=== PATIENT | female | born 1985 | race Caucasian/White ===

== ENCOUNTER 2024-01-31 07:29 | Inpatient (IN) | payer OTHER, SELFPAY ==
[2024-01-31] VITALS (81 sets, daily range): BP systolic 65–112; BP diastolic 47–94; BMI 25.1
[2024-01-31 06:20] LABS: % Basophils 0.6 % (0-2); % Eosinophils 1.1 % (0-6); % Immature Granulocytes 1.1 % (0-0.5); % Monocytes 6.5 % (1.7-9.3); % Neutrophils 58.7 % (42.2-75.2); Absolute Basophils 0.1 10^3/uL (0-0.2); Absolute Eosinophils 0.1 10^3/uL (0-0.7); Absolute Immature Granulocytes 0.1 10^3/uL (0-0.05); Absolute Lymphocytes 2.6 10^3/uL (1.2-3.4); Absolute Monocytes 0.5 10^3/uL (0.1-0.6); Absolute Neutrophils 4.8 10^3/uL (1.4-6.5); Hematocrit 22.9 % (37.0-47.0); Mean Corp Hgb Conc. 27.5 g/dL (33.0-37.0); Mean Corpuscular Hgb 17.6 pg (27.0-31.0); Mean Corpuscular Volume 64.1 fL (81.0-99.0); Mean Platelet Volume 9.7 fL (7.4-10.4); Nucleated Red Blood Cells % 0.2 %; Platelet Count 326 10^3/uL (130-400); Red Blood Cell Count 3.57 10^6/uL (4.20-5.40); Red Cell Dist. Width 17.5 % (11.5-14.5); White Blood Cell Count 8.2 10^3/uL (4.8-10.8)
[2024-01-31 06:21] LABS: B.E. -7.3 mmol/L; HCO3 18.8 mmol/L (21-28); O2 Saturation % 99.5 % (94-98); PCO2 40 mmHg (32-35); PO2 113 mmHg (83-108); pH 7.28 (7.35-7.45)
[2024-01-31 06:24] LABS: Hemoglobin 6.3 g/dL (12.0-16.0)
[2024-01-31 06:30] LABS: Urine Albumin Trace (Neg - Trace); Urine Bilirubin Negative (Negative); Urine Character Clear (Clear); Urine Color Yellow; Urine Glucose Negative (Negative); Urine Ketone Negative (Negative); Urine Leukocyte Negative (Negative); Urine Nitrite Negative (Negative); Urine Occult Blood Negative (Negative); Urine Urobilinogen Negative (Neg - 1+)
[2024-01-31 06:30] LABS: HCG, Serum Qualitative Screen Negative
[2024-01-31] MEDS: SUBLIMAZE 50 MCG IV ×7 (06:33→15:23)
[2024-01-31 06:35] LABS: ALT (SGPT) 92 U/L (0-35); AST (SGOT) 129 U/L (14-36); Albumin 3.2 g/dl (3.5-5.0); Alkaline Phosphatase 51 U/L (38-126); Blood Urea Nitrogen 11 mg/dl (7-17); Calcium 7.9 mg/dl (8.4-10.2); Carbon Dioxide 18 mmol/L (22-30); Chloride 109 mmol/L (98-107); Estimated Creatinine Clearance 92 ml/min; Glucose 238 mg/dl (70-99); Potassium 3.3 mmol/L (3.5-5.1); Sodium 135 mmol/L (135-145); Total Bilirubin 0.8 mg/dl (0.2-1.3); Total Protein 5.4 g/dl (6.3-8.2); eGFR > 60.00
[2024-01-31 06:38] LABS: Lactic Acid 4.3 mmol/L (0.7-2.0)
[2024-01-31 06:46] LABS: NT-proBNP 176 pg/ml; Troponin I < 0.012 ng/ml
--- NOTE | 2024-01-31 06:47 | ED.GENMED ---
History of Present Illness
General
Chief Complaint: CODE
Source: patient, spouse and ambulance crew
Exam Limitations: none
Time Seen by Provider: 01/31/24 06:05
Nursing documentation reviewed up to this point in time: agreed with
Travel History
Have you had any contact with someone who has COVID-19?: Unable to Answer
Do you have any symptoms of coronavirus? Fever > 100 degrees, chills, cough, shortness of breath, sore throat, loss of taste or smell, muscle aches, or headache?: Unable to Answer
History of Present Illness
History of Present Illness:
38-year-old female brought in by EMS after cardiac arrest. states that he woke up next to her and she was having difficulty breathing. She was unresponsive. He felt for a pulse. There were no pulses so he began CPR. 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 Simultaneously, he called 911. Police arrived first and hooked up an AED. They administered 1 shock after the machine requested 1. By the time EMS got there she was in SVT. She was pale and unresponsive. They transported her to
the hospital, and route intubating her. Upon arrival patient was not making purposeful movements. She did have pulses. Her pupils are very sluggish. ET tube was confirmed by myself. We got vital signs including blood pressure and bedside blood
glucose. then arrived and stated that she had 'atrial fibrillation'. She is not on any blood thinners. He he also stated that she had extremely heavy menses which is being evaluated at an outside hospital. He reports that the last time
she had her menses she was anemic. He reported that she took a THC gummy last evening in order to sleep. then stated that she did not have atrial fibrillation but mitral regurg. On the monitor at this point she was in atrial fibrillation
with rapid ventricular response. Her blood pressure was low. Rapid transfusion protocol was ordered and 2 units of O- blood were ordered. signed consent for this uncrossed matched blood. I did a [id number] ultrasound FAST exam which
did not show any obvious fluids. I looked at the heart which showed what appeared to be a fibrillating heart. No tamponade noted. Patient was still hemodynamically unstable with atrial fibrillation and a response of 160s to 170s. I did
synchronize cardiovert her which eventually brought her back into sinus rhythm. Patient now making more purposeful movements.
Past History
Past History
ED Past Medical History: None
Social History
Personal:
Review of Systems
Review of Systems
Allergies reviewed?: No
Unable to obtain full review of systems at this time due to: intubated
Other source history: family and ambulance crew
All Other Systems: Not applicable
Phy Exam
Physical Exam
Physical Exam:
CODE EXAM:
VITAL SIGNS: Patient hypotensive with thready pulses, she does have self driven respiration.
GENERAL EXAM: Extremely pale
EYES: Pupils sluggish
ENT: Patient intubated
NECK: No venous distention
RESPIRATORY: Equal breath sounds
CARDIAC: Normal heart sounds
VASCULAR: Thready pulses
ABDOMEN: Soft no masses.
Vaginal exam: Performed in the presence of female nurses. There was visual blood at the opening of the vagina
GUAIAC: Not done
MUSCULOSKELETAL: Unable to evaluate strength
EXTREMITIES: No edema or contractures
SKIN: No rash
PSYCH: Mood, affect unable to evaluate
Course
Orders/Labs/Results
Orders:
Orders
01/31/24
Electrocardiogram (*1) Stat
Reason for Study: Chest Pain
Comment: DONE
01/31/24 05:57
Electrocardiogram (*1) Urgent
Reason for Study: Other
Other Reason for Exam: Respiratory Distress
Cardiac Monitoring- Treatment ONCE
EKG- Treatment ONCE
IV Insert/Care/Rem.- Treatment PRN
O2 Therapy [RESP] Urgent
Titrate/Wean O2 to maintain O2 sat greater than (%): 93
Special Instructions: TO MAINTAIN CONTINUOUS O2 SATS >/= 93%
Pulse Ox/cont/shift [RESP] Urgent
Quantity: 1
Special Instructions: continuous pulse ox
01/31/24 05:58
CR Chest Portable - 1 View Urgent
Comment:
Reason For Exam: respiratory distress
Reason Study Needs to be Portable: Patient Unstable
01/31/24 06:02
Complete Blood Count/With Diff Urgent
Comprehensive Metabolic Panel Urgent
HCG, Serum Qualitative Screen Urgent
Lactic Acid Q4H
Comment: WITH 1ST SET OF BLOOD CULTURES,CANCEL 2ND LACTIC ACID IF FIRST <2
NT-proBNP Urgent
Troponin I Urgent
Blood Culture Q30M
LESLEE Source: Blood/Venous
Specimen Description:
Comment: FROM SEPARATE SITES
01/31/24 06:05
Massive Tranfusion Protocol Stat
Reason to initiate: Bleeding/Hemorrhaging
An initial MTP pack includes:
�Four (4)) units of type specific, type compatible red blood cells.
�Four (4) units of type specific, or type compatible plasma. Type A thawed plasma may also be used if
type specific or type compatible is not readily available. Thawing plasma takes approximately 20-30
mins. If cryoprecipitate is requested with the initial MTP pack, thaw 3 FFP and 1 CRYOP, followed by the
4th FFP.
�One (1) unit of apheresis platelet (if available). If we do not have platelets available, Blood Bank
places a STAT order for two (2) units.
�Cryoprecipitate will be thawed upon request of the physician. If cryoprecipitate is requested by the
physician, alert physician there is an approximate 20-30 minute wait for thawing. If physician still
requests, thaw 1 pre-pooled cryoprecipitate. There will be no automatic thawing of cryoprecipitate by
the blood bank staff.
�Notify the ED, OR, or patient care area when MTP set is ready.
A Blood Permit is Required for all Blood.
FOR LAB PICKUP:
Take order sheet to Blood Bank to black pickler blood products in validated cooler
Immediately return to patient care area.
Blood products released by
Blood Products picked up by
Sent to
Date and Time
Blood Culture Q30M
LESLEE Source: Blood/Venous
Specimen Description:
Comment: FROM SEPARATE SITES
01/31/24 06:08
ABG [Arterial Blood Gas] Urgent
%Oxygen/Room Air: 100
Test Result ONCE
01/31/24 06:10
Type+Screen Stat
BBK Wristband Number:
01/31/24 06:12
Type+Screen Urgent
Urinalysis Reflex To Culture Urgent
Date Specimen was Collected: 01/31/24
Time Specimen was Collected: 06:08
Urine Drug Abuse Screen Urgent
Date Specimen was Collected: 01/31/24
Time Specimen was Collected: 06:08
01/31/24 06:23
Fentanyl Citrate/Pf [Sublimaze] 100 mcg .ROUTE .STK-MED ONE
01/31/24 06:25
Fentanyl Citrate/Pf [Sublimaze] 50 mcg IV NOW STA
01/31/24 10:00
Lactic Acid Q4H
Comment: WITH 1ST SET OF BLOOD CULTURES,CANCEL 2ND LACTIC ACID IF FIRST <2
Abnormal Lab Results
01/31/24 01/31/24 01/31/24
06:02 06:08 06:12
RBC 3.57 L 10^6/uL
(4.20-5.40)
Hgb 6.3 L* g/dL
(12.0-16.0)
Hct 22.9 L %
(37.0-47.0)
MCV 64.1 L fL
(81.0-99.0)
MCH 17.6 L pg
(27.0-31.0)
MCHC 27.5 L g/dL
(33.0-37.0)
RDW 17.5 H %
(11.5-14.5)
Abs Immat Gran (auto) 0.1 H 10^3/uL
(0-0.05)
Immature Gran % 1.1 H %
(0-0.5)
pH 7.28 L
(7.35-7.45)
pCO2 40 H mmHg
(32-35)
pO2 113 H mmHg
(83-108)
HCO3 18.8 L mmol/L
(21-28)
ABG O2 Sat (Measured) 99.5 H %
(94-98)
Potassium 3.3 L mmol/L
(3.5-5.1)
Chloride 109 H mmol/L
(98-107)
Carbon Dioxide 18 L mmol/L
(22-30)
Glucose 238 H mg/dl
(70-99)
Lactic Acid 4.3 H* mmol/L
(0.7-2.0)
Calcium 7.9 L mg/dl
(8.4-10.2)
AST 129 H U/L
(14-36)
ALT 92 H U/L
(0-35)
Total Protein 5.4 L g/dl
(6.3-8.2)
Albumin 3.2 L g/dl
(3.5-5.0)
Crossmatch IS Only See Detail
01/31/24 06:02
01/31/24 06:02
Vital Signs
Initial and Last Documented VS:
Initial Vital Signs
Pulse Resp BP Pulse Ox
164 20 78/61 92
01/31/24 05:59 01/31/24 05:59 01/31/24 05:59 01/31/24 05:59
Last Documented Vital Signs
Temp Pulse Resp BP Pulse Ox
95.9 F L 91 18 78/58 100
01/31/24 06:26 01/31/24 06:30 01/31/24 06:30 01/31/24 06:30 01/31/24 06:27
*Pulse Oximetry
Patient hypoxic: no
*Sugar Controller Interpretation
Rate: tachycardiac
Interpretation: abnormal
Heart Rate: 171
Rhythm: a-fib
*Critical Care Note
Total Time (30-74mins, 75-104mins- exclusive of procedures): 50
comment:
Critical care statement: A total of 50 minutes of critical care time was provided for this patient. This time is separate from time utilized to perform the aforementioned documented procedures. Aggregate critical care time includes only time
during which I was engaged in work directly related to the patient's care, as described above, whether at the bedside or elsewhere in the Emergency Department.
Data Reviewed
Review of Other/Old Records Reveals: Labs
Source: family and ambulance crew
Patient Management
Social determinants of health affecting care: Living situation and Strong social support
Discussion with other providers: Hospitalist and Day Ha[employer] Youth Supervisor (Dr. Israel, cardiology regarding cardiovascular care. Dr. Kate, intensive care)
Escalation/DeEscalation of care consider admission/obs:
Patient to be admitted to the ICU in extremely grave condition.
ED Attending Note
-
Portions of this chart may have been created with voice recognition software.� Occasional wrong word or��sound alike� substitutions may have occurred due to the inherent limitations of voice recognition software.
Discharge Plan
Departure
Patient Disposition: Admit
Date of Disposition: 01/31/24
Time of Disposition: 06:57
Admit to: ICU
Presentation/result/management discussed w/ accepting MD/DO: Hospitalist
Discharge Problem:
Cardiac arrest, Anemia, Menorrhagia
Prescriptions:
No Action
Quinten-Baclofin
1 dose topical Q12H
amitriptyline 10 MG tablet
10 mg PO HS
dextroamphetamine-amphetamine [Adderall] 20 MG tablet
20 mg PO DAILY@0700,1200
hydroxyzine HCl 25 MG tablet
25 mg PO HS
Mldlkc-Ovnde-Yydyxxgm Eye Drop
1 drp LEFT EYE QID
Referrals:
UNKNOWN - PT NOT,INTERVIEWE [Family Provider] -
Interventions
Interventions:
*Risk Screen - Suicide Last Done: 01/31/24 05:59
*General Assessment Last Done: 01/31/24 05:59
*Neglect/Abuse Screening Last Done: 01/31/24 05:59
ED- Cardiac Assessment Last Done: 01/31/24 06:00
ED- Pulmonary Assessment Last Done: 01/31/24 06:40
Discharge Date and Time
Print Language: BRUNEIAN
[2024-01-31 06:49] LABS: Amphetamines Positive (Negative); Barbiturates Negative (Negative); Benzodiazepines Negative (Negative); Buprenorphine Negative (Negative); Cocaine Negative (Negative); Marijuana Positive (Negative); Methadone Negative (Negative); Methamphetamines Negative (Negative); Opiates Negative (Negative); Phencyclidine Negative (Negative); Tricyclic Antidepressants Negative (Negative)
[2024-01-31 07:08] LABS: Fentanyl, Urine Negative (Negative)
--- NOTE | 2024-01-31 07:17 | HPS.HSE ---
Family Physician
-
Family Physician: INTERVIEWE UNKNOWN - PT NOT
Chief Complaint
-
Unresponsive
History of Present Illness
Patient is a 38y F with PMH significant for mitral valve prolapse and menorrhagia who presents to ED following cardiac arrest. History obtained from at the bedside and discussion with ED staff.
states that he went to sleep around midnight last PM. Patient was still awake at that time and had been dealing with insomnia issues. She took 2 CBD gummies and may have also taken some Zzz-Quil last PM for sleep. woke around 5 AM
today to sonorous / agonal sounding breathing. Patient had coarse, agonal breath sounds at about 8 breaths per minute. She was unresponsive. called 911. He did not appreciate a pulse and he started CPR.
administered CPR until EMS arrived. AED was placed and advised a shock which was delivered. CPR was resumed and patient did achieve ROSC in the home.
She was transported to ED for further evaluation. Patient was intubated en route to the hospital.
In the ED, patient was noted to be hypotensive and in A-Fib with RVR. She was cardioverted successfully to sinus rhythm - though BP remains marginal.
Patient began spontaneous / purposeful movements in the ED.
states that patient has had issues for the past 9-12 months with very heavy menses.
She has significant / symptomatic blood loss during her menses. She started her most recent menstrual period on Monday of this week.
notes that she has issues with insomnia - specifically during her menses.
denies any other recent issues including cough, fevers / chills, chest pain, N/V/D or other acute illness symptoms, etc.
Her only current Rx medication is Adderall.
Medical History
Past Medical History
Past Medical History: Reports Other
Additional Past Medical History:
Mitral Valve Prolapse
Menorrhagia
Nephrolithiasis
ADHD
Cervical DDD
Recurrent Spontaneous
Past Surgical History: Reports Other
Additional Past Surgical History:
Myomectomy
Diagnostic Cardiac Cath
Right Ureteroscopy / Stent Placement
Social History
Tobacco: Non-smoker
Alcohol: Occasional (rare)
Drug: None
Personal:
Living: With Family
Family History
Family History: Other (Father: CAD, CVA)
Allergies / Home Medications
Allergies reflects when Allergies were last updated in [facility].
Home Medications with original date entered in [facility]
Allergy/Medication List:
Allergies
Allergy/AdvReac Type Severity Reaction Status Date / Time
No Known Allergies Allergy Verified 01/31/24 05:57
Home Medications
dextroamphetamine-amphetamine 20 mg tablet (Adderall) 20 mg PO DAILY@0700,1200 01/06/21
Review of Systems
-
Unable to obtain full review of systems at this time due to: Patient Intubation
Physical Exam
Vital Signs
Vital Signs
Temp Pulse Resp BP Pulse Ox
94.5 F L 92 17 93/71 100
01/31/24 07:04 01/31/24 07:04 01/31/24 07:04 01/31/24 07:04 01/31/24 06:50
Physical Exam
General: Other (38y F currently intubated / on vent. Spontaneous movement, intermittently restless.)
HEENT: Other (Pupils sluggish but reactive and appear equal. ETT in place.)
Respiratory: Other (Coarse breath sounds bilaterally - R > L. No wheezing / rales.)
Cardiac: S1/S2 and Regular Rhythm; No Murmur
GI: Soft, Non Tender, Non Distended, Normal Bowel Sounds and Other (Pos voluntary guarding.)
Musculoskeletal: No Clubbing, No Cyanosis and No Edema
Neuro: Other (Becoming more active in the ED. Intubated. Does not follow specific commands at this time.)
Laboratory Results
-
01/31/24 06:02
01/31/24 06:02
Laboratory Results
pH 7.28 (7.35-7.45) L 01/31/24 06:08
pCO2 40 mmHg (32-35) H 01/31/24 06:08
pO2 113 mmHg (83-108) H 01/31/24 06:08
HCO3 18.8 mmol/L (21-28) L 01/31/24 06:08
Lactic Acid 4.3 mmol/L (0.7-2.0) H* 01/31/24 06:02
Total Bilirubin 0.8 mg/dl (0.2-1.3) 01/31/24 06:02
AST 129 U/L (14-36) H 01/31/24 06:02
ALT 92 U/L (0-35) H 01/31/24 06:02
Alkaline Phosphatase 51 U/L (38-126) 01/31/24 06:02
Troponin I < 0.012 ng/ml 01/31/24 06:02
Impression/Plan
-
A/P: Patient is a 38y F with PMH significant for menorrhagia and mitral valve prolapse who presents to ED following agonal episode / cardiac arrest at home.
Cardiac Arrest
A-Fib with RVR
- Admit to ICU for further evaluation and treatment.
- Time down is unknown as patient was unresponsive when woke.
- AED shock administered x 1 and ROSC achieved at the scene.
- Patient becoming progressively more responsive in the ED.
- ? etiology of arrest.
- In A-Fib with RVR on arrival here - cardioverted to NSR.
- CXR with R > L pulmonary opacities - ? pulm edema secondary to arrest v pneumonia - though no recent symptoms of cough, fever, etc.
- Continue vent support.
- Gate Agent and Cardiology consulted for further evaluation.
- Monitor on telemetry fo any recurrent arrhythmia.
- Check CT head.
- Check CTA chest to rule out PE (history of multiple miscarriages and recent bleeding issues / menorrhagia).
- ? QT prolongation / arrhythmia secondary to medications / sedatives.
- Check Echo.
VDRF
- Secondary to the above.
- Abnormal CXR as noted. Rule out PE with CTA.
- Empiric abx for now given appearance of CXR - though pneumonia not particularly consistent with clinical presentation.
- Sedation for now to allow for vent support.
- Hopefully can wean quickly given responsiveness seen thus far in the ED.
Hypotension
- Shock - likely cardiogenic.
- BP slightly improved after cardioversion.
- IVF support. +/- pressor support as needed for perfusion.
Menorrhagia
Anemia
- Hgb = 6.3 on initial labs.
- Transfusion ordered for BP / volume support.
- Seems unlikely that this alone resulted in her current presentation.
- Continue to monitor H&H and provide additional transfusion as needed.
- ? underlying coagulopathy with history of miscarriages. Rule out PE as noted above.
Non-Gapped Metabolic Acidosis
Hypokalemia
- IVF support. Follow for improvement with lyte replacement, adequate perfusion, etc.
DVT prophylaxis: Lovenox for now - therapeutic dosing if appropriate following CTA.
Code Status: Full
[2024-01-31] MEDS: SUBLIMAZE 25 MCG IV ×2 (07:30→07:50)
[2024-01-31 07:44] LABS: COVID-19 Antigen Negative (Negative)
[2024-01-31 07:52] LABS: Anisocytosis 1+; Hypochromasia 3+; Macrocytosis Slight; Normal RBC Morphology Yes
[2024-01-31 07:53] LABS: Other Cells 100; Ovalocytes Slight; Polychromasia Few
--- NOTE | 2024-01-31 08:28 | PTCARENOTE ---
Pt arrived from ED via stretcher with RN, RPT, ventilated, restrained, on monitor. Upon proceeding with her assessment she became increasing agitated, thrashing in the bed, sitting upright in the bed, Dr. Kirby TT'd to come to the bedside [id number].
Left AC#20g protective catheter, right FA#20g protective catheter and right AC#18g protective catheter all flushed and patent. +palpable peripheral pulses. Skin cool, pale, piloerection. +menses, Breath sounds coarse posteriorly. Anteriorly equal
breath sounds and CTA. #6 ETT secured 19cm right lip. Arrived on AC 14/400/.80/+5, the changed to ASV 100% per Dr. Kirby for ventilator dyssynchrony. Propofol initiated @ 10mcg/kg/min after 50mcg Fentanyl bolus administered IVP. +BSX4, abdomen
distended, Pt had belched when she sat up in the bed. Temperature sensing Guzman catheter secured with large amount of pale yellow urine. Family in the waiting room. Safe environment maintained.
--- NOTE | 2024-01-31 08:45 | CON.INTV ---
Consultation
Consultation Request
Date/Time Consultation Requested: 01/31/24
Date/Time Consultation Performed: 01/31/24
Reason for Consultation: Critical care
Medical History
-
History of Present Illness:
History obtained from the chart, , mother and sister who participated by phone who is a physician. 38-year-old female with history of heavy menses over the past 9 months, history of fibroids, endometriosis in the past, recently started
taking CBD Gummies over the past 3 weeks to help with sleep. Patient also takes Zquil at night. Patient without any complaints, noted around 5:00 in the morning she was snoring like she has in the past. Normally he would not sure she
would stop snoring, but this time she did not stop. He got up, turned on the light and saw that she was breathing at a rate of 8-10, not responsive. He immediately called 911, started CPR on the bed. Within a few minutes, police arrived, AED
placed, shock advised given once. Repeat analysis did not advise shock. EMS arrived, patient given IV fluids. Upon arrival to ED, found to be in atrial fibrillation with rapid ventricular response, DC cardioversion done twice in the ED, patient
in sinus. Patient intubated with #6 ET tube, possibly traumatic intubation with blood per discussion with ED. Stat echocardiogram did not show any obvious tamponade/pericardial effusion. Patient admitted to ICU. Cooling protocol was not pursued
as patient was spontaneously moving extremities, but not following commands.
Patient has been worked up for heavy menses over the past 9 months which is a new symptom. She is never required transfusions. She has a history of fibroids, mitral valve prolapse
Patient also takes Adderall chronically, but ran out about few days ago. She runs out regularly for ADHD, does not refill her prescriptions consistently
No illicit drug use
Of note, patient traveled to [place] 02/10 to 02/15 had noticed increased shortness of breath during that time, did not do any skiing/hiking, elevation changes
She brought boost canisters of oxygen. She felt much better upon her return according to
.
PMH: History of fibroids, endometriosis, ADHD. History of COVID 2022. Had reaction to COVID-vaccine
Past Medical History
Past Medical History: None (See above)
Past Surgical History: None (See above)
Social History
Tobacco: Non-smoker
Alcohol: Occasional (3-4 drinks a week)
Drug: None
Personal:
Living: With Family
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
Family History
Family History: Other (Sister is healthy. Both parents healthy. Father with history of mitral valve prolapse, atrial fibrillation/stroke. 2 children is healthy)
Allergies / Home Medications
Allergies
Allergy/AdvReac Type Severity Reaction Status Date / Time
No Known Allergies Allergy Verified 01/31/24 05:57
Home Medications
�Medication �Instructions �Recorded �Confirmed �Last Taken �Type
dextroamphetamine-amphetamine 20 20 mg PO DAILY@0700,1200 01/06/21 01/31/24 01/06/21 12:30 History
mg tablet (Adderall)
Review of Systems
-
All other systems: Negative unless noted
Vitals / Labs / Diagnostic Testing
Vital Signs
Temp Pulse Resp BP Pulse Ox
95.4 F L 90 22 92/69 100
01/31/24 07:30 01/31/24 07:30 01/31/24 07:30 01/31/24 07:30 01/31/24 06:50
Laboratory Results
01/31/24
06:08
pH 7.28 L
pCO2 40 H
pO2 113 H
HCO3 18.8 L
O2 Delivery Level
Microbiology
01/31/24 07:14 Nasal Swab Influenza Types A & B ([facility]) - Final
Negative for Influenza A & B, NAAT
Negative results must be combined with clinical observations
and patient history.
Nucleic Acid Amplification test (NAAT)performed on the
[employer] platform.
Diagnostic Testing:
Physical Exam
-
HEENT: Normocephalic, Anicteric and Other (Pupils dilated but reactive)
Cardiovascular: S1/S2, Regular Rhythm, Murmur (n), Rub (n) and Peripheral Edema (n)
Respiratory: Wheeze (n), Rales (n), Rhonchi (n), Non-Labored Respirations and Other (ET tube, #6)
GI: Soft, Non Distended and Non Tender
Neurology: No Motor Deficits (Moves all extremities, tries to sit up when sedation wears off) and Other (Sedated)
Skin: Other (Mild pallor)
General: Comfortable
Assessment
-
38-year-old female with history of endometriosis, fibroids with heavy menses over the past 9 months, ADHD on chronic Adderall therapy ran out few days ago, was found with agonal breathing at around 5:00 per . CPR was started, police arrived,
AED placed, shock advised and delivered with return of spontaneous circulation. Patient intubated with #6 ET tube, possibly traumatic. In ED, atrial fibrillation with rapid ventricular response, DC cardioversion x 2 per ACLS, and sinus rhythm.
Patient with spontaneous movement of upper and lower extremities. Cooling protocol not pursued. Hemoglobin noted to be 6.3, patient given 2 units of blood in the ED. Metabolic acidemia per ABG. Patient was given potassium for potassium level of
3.3. Initial lactate 4.3. We are asked to help from critical care standpoint
Status post out of hospital cardiac arrest
CPR for about 3 to 5 minutes
AED with shock with ROSC
Atrial fibrillation with RVR, status post DC cardioversion in ED
Bilateral pulm infiltrates
Inflammatory versus pulm edema versus infectious
No symptoms preadmission
Mild QT prolongation
Metabolic acidemia, nongap
Anemia, likely secondary to acute blood loss/menorrhagia
Conditions present prior to admission
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
None in the last 2 years
Endometriosis/fibroids
Heavy bleeding for the past 9 months
History of mitral valve prolapse
Plan/recommendations
At this time, patient is critically ill
Remains on volume-cycled ventilation
Transition to ASV mode. #6 ET tube noted. Patient more comfortable with this mode, with assist-control, becomes tachypneic
CT chest with bilateral infiltrates
EKG with atrial fibrillation with rapid ventricular response. Mildly prolonged QT noted
Stat echo in the ED without tamponade
Patient is status post 2 units of blood, Zosyn
Moving forward
Continue with volume-cycled ventilation
Maintain sedation
Propofol, fentanyl
Send tracheal cultures, Legionella, streptococcal antigen
Difficult to differentiate between pulm edema and infectious process
Follow closely for worsening oxygenation
ABG, chest x-ray daily
Has not required pressors
Tachycardia intermittent especially with agitation
Required DC cardioversion in the ED for atrial fibrillation with rapid ventricular response
Mildly prolonged QT noted per EKG
Cardiology following. Avoid QT prolonging medications
Eventual repeat echocardiogram
Difficult to determine whether patient had VT/VF
Patient on Adderall as outpatient, talk screen positive for amphetamines/marijuana. Patient takes CBD Gummies
According to , ran out of Adderall 3 to 4 days ago
Continue empiric Zosyn therapy. Follow cultures
Check Covid
Metabolic acidemia noted. Increase ASV to 140%
Repeat ABG later p.m.
Peak pressure presently is 12
Follow blood sugars, sliding scale
Replete potassium
Continue IV fluids for now, LR
DVT prophylaxis: Mechanical prophylaxis for now. Hold Lovenox given heavy menorrhagia for now
GI prophylaxis: Continue pantoprazole given shock/cardiac arrest, anemia
Reviewed at length with critical care nursing, respiratory care, pharmacy
Reviewed with primary service, cardiology updated
, mother and sister who is a physician by phone at length
All questions answered
TCCT 45 min
[2024-01-31] MEDS: LR 1000 IV ×2 (08:53→17:54)
[2024-01-31] MEDS: DIPRIVAN 100 IV ×3 (08:58→21:36)
--- NOTE | 2024-01-31 09:00 | CM ---
Patient seen at bedside with physician. Patient is currently intubated and CM will call to patient family regarding assessment. CM will continue to follow for discharge planning needs.
Plan; TBD;
[2024-01-31 09:15] LABS: B.E. -9.5 mmol/L; HCO3 17.6 mmol/L (21-28); O2 Saturation % 96.9 % (94-98); PCO2 43 mmHg (32-35); PO2 78 mmHg (83-108); pH 7.22 (7.35-7.45)
--- NOTE | 2024-01-31 09:19 | W.PN.CD ---
Addendum entered and electronically signed by Tomer Chávez MD 01/31/24 11:45:
D/w at bedside - reviewed events
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 He activated EMS and [place] [employer] arrived. AED delivered a shock. They got a pulse. AED then did NOT deliver a shock on next interrogation.
No change in plans as below
Original Note:
Today's Communication / Plan
-
.
Impression / Plan
-
Impression: 38F with SCD.
History: MVP with mild to moderate MR and acute on chronic anemia. Night of admit took CBD gummies and diphenhydramine (ZzzQuil). heard agonal sounds, found no pulse, and started BLS. EMS arrived -> AED with shock delivered and ROSC. In ED
with AF/RVR and given DCCV as per ACLS. Now sedated/intubated and relatively stable in ICU.
SCD
- AED delivered shock which means device thought she had VT or VF. I will contact EMS and see if we can get strips of her rhythm.
- QTc slightly prolonged this morning (in NSR). Avoid QTc prolonging meds.
- Diphenhydramine can rarely cause QTc prolongation/Torsades but usually at higher than normal doses
- update echocardiogram for LVEF
- Eventual EP evaluation
Anemia
- volume resuscitate as needed
- Echo
MVP with mild to moderate MR - Echo
Critically ill 34 minutes
Physical Exam
Vital Signs/Labs
Vital Signs
Temp Pulse Resp BP Pulse Ox
35.2 C L 99 17 108/85 100
01/31/24 07:30 01/31/24 08:45 01/31/24 08:45 01/31/24 08:45 01/31/24 08:00
01/30/24 01/31/24 02/01/24
06:59 06:59 06:59
Actual Weight 145 lb 15.136 oz
01/31/24
06:02
[id number] Pept 176
LAB Results
01/31/24
06:02
Troponin I < 0.012
Data Reviewed
-
Date of Service: January 31, 2024
[2024-01-31 09:34] LABS: Hematocrit 29.4 % (37.0-47.0)
[2024-01-31 09:37] LABS: Hemoglobin 8.6 g/dL (12.0-16.0)
[2024-01-31 09:47] LABS: Iron 155 ug/dl (37-170); Triglycerides 171 mg/dl (10-149)
[2024-01-31] MEDS: ZOSYN 50 IV ×3 (09:54→21:44)
[2024-01-31 09:58] LABS: Percent Saturation 40 % (20-50); Total Iron Binding Capacity 379 ug/dl (265-497)
[2024-01-31 10:02] LABS: Lactic Acid 3.4 mmol/L (0.7-2.0)
--- NOTE | 2024-01-31 10:27 | W.PN.HOSP.TC ---
Today's Communication/Plan
-
cont care as outlined
Assessment / Plan
Assessment / Plan
pt is a 38 year old female
Cardiac Arrest/A-Fib with RVR/possible VF or VT since shock delivered by AED--unknown trigger/cause--Time down is unknown as patient was unresponsive when woke--AED shock administered x 1 and ROSC achieved at the scene--CXR with R > L
pulmonary opacities - ? pulm edema secondary to arrest v pneumonia - though no recent symptoms of cough, fever, etc--Continue vent support--Auctioneer Tobacco and Cardiology consulted for further evaluation--CT head without acute intracranial
abnormalities--tox screen positive for amphetamines/marijuana (consistent with medication intake)--Check CTA chest to rule out PE (history of multiple miscarriages and recent bleeding issues / menorrhagia)--? QT prolongation / arrhythmia secondary
to medications / sedatives--Check Echo.
VDRF--Secondary to the above--Abnormal CXR as noted. Rule out PE with CTA--Empiric abx for now given appearance of CXR - though pneumonia not particularly consistent with clinical presentation--Sedation for now to allow for vent support--Hopefully
can wean quickly given responsiveness seen thus far in the ED.
Hypotension--Shock - likely cardiogenic--BP slightly improved after cardioversion--IVF support. +/- pressor support as needed for perfusion.
Menorrhagia/ acute on chronic blood loss Anemia from heavy menses--Hgb = 6.3 on initial labs -Transfusion ordered for BP / volume support -? underlying coagulopathy with history of miscarriages. Rule out PE as noted above.
Non-Gapped Metabolic Acidosis/Hypokalemia from shock/arrest- -IVF support. Follow for improvement with lyte replacement, adequate perfusion, etc.
DVT prophylaxis: Lovenox for now - therapeutic dosing if appropriate following CTA
Code Status: Full
Anticipated Discharge: > 48 hours
Subjective/Interval History
-
Date of Service: January 31, 2024
pt just admitted by sap business intelligence consultant at 7 this AM
pt seen in ICU--intubated
Objective Data
-
Labs:
Laboratory Results
01/31/24 01/31/24 01/31/24
06:02 06:08 08:56
WBC 8.2
Hgb 6.3 L*
Hct 22.9 L
Plt Count 326
HCO3 18.8 L 17.6 L
Sodium 135
Potassium 3.3 L
Chloride 109 H
Carbon Dioxide 18 L
BUN 11
Creatinine 0.7
Glucose 238 H
Calcium 7.9 L
Total Bilirubin 0.8
AST 129 H
ALT 92 H
Alkaline Phosphatase 51
01/31/24 01/31/24
09:15 13:00
WBC
Hgb 8.6 L D
Hct 29.4 L
Plt Count
HCO3
Sodium Pending
Potassium Pending
Chloride Pending
Carbon Dioxide Pending
BUN Pending
Creatinine Pending
Glucose Pending
Calcium Pending
Total Bilirubin
AST
ALT
Alkaline Phosphatase
Vital Signs:
max temp for 24 hours
01/31/24
06:26
Temp 95.9 F L
Vital Signs
Temp Pulse Resp BP Pulse Ox
95.4 F L 99 17 108/85 99
01/31/24 07:30 01/31/24 08:45 01/31/24 08:45 01/31/24 08:45 01/31/24 08:47
I&O
01/30/24 01/31/24 02/01/24
06:59 06:59 06:59
Intake Total 0 / 0 250 / 250
Balance 0 / 0 250 / 250
Review of Systems
-
Unable to obtain full review of systems at this time due to: Patient Intubation
Physical Exam
-
General: Well Developed, Well Nourished, No Apparent Distress and Intubated
HEENT: Normocephalic and Atraumatic
Respiratory: Rhonchi (at bases)
Cardiac: Regular Rhythm and S1/S2; Negative Murmur
GI: Soft, Nontender, Nondistended and Normal Bowel Sounds
Musculoskeletal: No Clubbing, No Cyanosis and No Edema
Neuro: Sedated
[2024-01-31 10:35] LABS: TSH Reflex To Free T4 2.19 uIU/ml (0.47-4.68)
[2024-01-31] MEDS: SUBLIMAZE 100 IV ×2 (10:43→21:20)
--- NOTE | 2024-01-31 11:00 | PTCARENOTE ---
Fentanyl drip started as ordered. Agitated with neuro assessment. Ventilator desynchrony, per Dr. Kirby he does not want the pt stimulated to allow rest on ventilator. Family provided update from Dr. Kirby.
[2024-01-31] MEDS: KCL 270 MEQ IV (11:24)
[2024-01-31] MEDS: NSS (PRESERVATIVE FREE) 10 ML IV (11:48)
[2024-01-31] MEDS: PROTONIX IV 40 MG IV (11:48)
--- NOTE | 2024-01-31 12:00 | PTCARENOTE ---
Thrashing in the bed with light stimuli in the room. Fentanyl bolus administered. Titrated Fentanyl and Propofol drips.
[2024-01-31 12:03] LABS: Cortisol, Random 23.1 ug/dl; TSH 6.72 uIU/ml (0.47-4.68)
[2024-01-31 12:37] LABS: Glycohemoglobin (HgbA1c) 5.7 % (4.0-5.6)
[2024-01-31 13:22] LABS: Glucose - Point of Care 118 mg/dl (70-99)
[2024-01-31 13:32] LABS: B.E. -4.3 mmol/L; HCO3 19.5 mmol/L (21-28); O2 Saturation % 99.5 % (94-98); PCO2 30 mmHg (32-35); PO2 194 mmHg (83-108); pH 7.42 (7.35-7.45)
[2024-01-31 13:59] LABS: Hemoglobin 8.3 g/dL (12.0-16.0)
[2024-01-31 14:12] LABS: Blood Urea Nitrogen 10 mg/dl (7-17); Calcium 6.8 mg/dl (8.4-10.2); Carbon Dioxide 20 mmol/L (22-30); Chloride 111 mmol/L (98-107); Estimated Creatinine Clearance 108 ml/min; Glucose 110 mg/dl (70-99); Magnesium 1.4 mg/dl (1.6-2.3); Potassium 4.5 mmol/L (3.5-5.1); Sodium 133 mmol/L (135-145); eGFR > 60.00
[2024-01-31 14:32] LABS: Lactic Acid 1.5 mmol/L (0.7-2.0)
[2024-01-31] MEDS: MAGNESIUM SULFATE 50 IV (14:33)
[2024-01-31 14:47] LABS: Troponin I 0.112 ng/ml
[2024-01-31] MEDS: CALCIUM GLUCONATE 100 IV (15:41)
[2024-01-31] MEDS: ATIVAN 1 MG IV (16:01)
[2024-01-31] MEDS: NSS (PRESERVATIVE FREE) 0.5 ML IV (16:02)
--- NOTE | 2024-01-31 16:40 | PTCARENOTE ---
s/p exchange of ETT for a 7.5ETT secured 23cm @ left lip. She had thin blood tinged secretions. CXR pending.
--- NOTE | 2024-01-31 16:46 | W.PN.ANESINT ---
Anesthesia Intubation Note
- Intubation Note
Intubation Note:
Diagnosis: VDRF, tube exchange requested by long chain beamer
Blade: n/a
Tube Size: 7.5
Depth: 22cm
Side Taped:
Drugs Used: fentanyl 50mcg, propofol 30mg, phenylephrine 300mcg
Grade View: n/a
EtCO2 Present: yes
Atraumatic: yes
Attempts: 1
Insertion Start and Stop Time: 3846-3003
SaO2 Pre: 98
SaO2 Post: 90
Glidescope Used: no
Other Airway Adjustments: 6.0 ETT in situ exchanged over a boujie
Pre-Oxygenated: yes
Portable Chest X-Ray: p
RSI:
Suctioned:
Bilateral Breath Sounds Confirmed: yes
Vent Settings:
Settings per _x__Attending Physician
--- NOTE | 2024-01-31 17:00 | W.PN.UPDATE ---
Update Note
Progress Note Update
Multiple visits to reevaluate patient throughout the day
ABG reviewed, improved acidemia
Chest exam with clear breath sounds bilaterally
Primary issue throughout the day has been extreme agitation. Patient will sit up bolt upright, attempts to remove ET tube
With this, rapid shallow breathing, panting
She is now on propofol, fentanyl
Responded to 1 mg Ativan and Precedex drip also started
Saturation goes down to as low as 90% on 100% with episodes
Patient does spontaneously move all extremities when awake but unfortunate does not follow commands
Repeat hemoglobin stable at 8.3
ABG 7.42/30/194 on 100%
Legionella and streptococcal antigen negative, influenza negative, COVID-negative
Echocardiogram with normal biventricular function, mild mitral regurgitation, bileaflet mitral valve prolapse, no change compared to 2020
ET tube high on chest x-ray
Cuff leak is noted on exam per respiratory
Mild bloody secretions noted
PICC line has been placed
Large gastric bubble noted
Moving forward
Exchange ET tube to larger size, 7.5 place. Reviewed with anesthesia/PERSONAL LINES INSURANCE AGENT
Maintain sedation for now, Precedex/fentanyl/propofol, Ativan as needed
Wean FiO2 as able
Vent changes to ASV 120%
May consider switching to assist-control over the next 24 hours
Maintain PEEP of 5
Pplat 19
Continue broad-spectrum antibiotics
Continue IV fluids
Cardiology following
Multiple updates with and mother including sister throughout the day
Reviewed plan with critical care nursing, respiratory care
TCCT 40 min
--- NOTE | 2024-01-31 17:05 | PTCARENOTE ---
Dr. Chávez aware of recent troponin. Will recheck in AM as ordered.
[2024-01-31 17:38] LABS: Glucose - Point of Care 115 mg/dl (70-99)
[2024-01-31] MEDS: NSS IV (18:33)
[2024-01-31] MEDS: NSS 1000 IV (18:33)
--- NOTE | 2024-01-31 20:00 | PTCARENOTE ---
Left radial arterial line transduced, calibrated and monitored with all ports patent and secured. Correlates to cuff pressure.
--- NOTE | 2024-01-31 20:00 | W.PN.UPDATE ---
Update Note
Progress Note Update
LINE (A-Line) PLACEMENT
Date: 01/31/24
Time: 1999
Indication: Hemodynamic monitoring
Consent: emergent
A time-out was completed verifying correct patient, procedure, site, and positioning. Chito�s test was performed to ensure adequate perfusion. The patient�s left wrist was prepped and draped in sterile fashion. �A�20G Arrow arterial line was
introduced into the left radial artery. The catheter was threaded over the guide wire and the needle was removed with appropriate pulsatile�blood return. A sterile dressing applied. Perfusion to the extremity distal to the point of catheter
insertion was checked and found to be adequate.
Estimated Blood Loss: <5cc, minimal
The patient tolerated the procedure well and there were no complications.
[2024-01-31] MEDS: NSS 500 IV (20:35)
[2024-01-31] MEDS: LEVOPHED 250 IV (20:44)
--- NOTE | 2024-01-31 22:00 | PTCARENOTE ---
Repositioned in bed. Pt tolerated it well. Left radial arterial line transduced, calibrated and monitored. All ports patent and secured. All drips via right DL PICC as documented. Left AC and right FA protective catheter flushed and patent.
Aspiration precautions maintained. was updated on the plan of care. Safe environment maintained.
[2024-02-01] VITALS (9 sets, daily range): BP systolic 89–117; BP diastolic 64–76; BMI 25.5
[2024-02-01 00:18] LABS: Glucose - Point of Care 96 mg/dl (70-99)
[2024-02-01] MEDS: ZOSYN 50 IV ×4 (03:30→22:12)
[2024-02-01] MEDS: DIPRIVAN 100 IV (03:30)
[2024-02-01] MEDS: LR 1000 IV ×3 (03:33→23:01)
[2024-02-01 03:53] LABS: B.E. -5.8 mmol/L; HCO3 19.4 mmol/L (21-28); O2 Saturation % 98.7 % (94-98); PCO2 36 mmHg (32-35); PO2 82 mmHg (83-108); pH 7.34 (7.35-7.45)
[2024-02-01 03:54] LABS: Hematocrit 22.7 % (37.0-47.0); Mean Corp Hgb Conc. 30.8 g/dL (33.0-37.0); Mean Corpuscular Hgb 20.3 pg (27.0-31.0); Mean Platelet Volume 9.5 fL (7.4-10.4); Platelet Count 199 10^3/uL (130-400); Red Blood Cell Count 3.44 10^6/uL (4.20-5.40); Red Cell Dist. Width 19.6 % (11.5-14.5); White Blood Cell Count 13.5 10^3/uL (4.8-10.8)
[2024-02-01 04:15] LABS: ALT (SGPT) 59 U/L (0-35); AST (SGOT) 55 U/L (14-36); Albumin 2.6 g/dl (3.5-5.0); Alkaline Phosphatase 32 U/L (38-126); Blood Urea Nitrogen 10 mg/dl (7-17); Calcium 7.4 mg/dl (8.4-10.2); Carbon Dioxide 19 mmol/L (22-30); Chloride 111 mmol/L (98-107); Direct Bilirubin 0.3 mg/dl (0.0-0.4); Estimated Creatinine Clearance 108 ml/min; Glucose 101 mg/dl (70-99); Magnesium 1.9 mg/dl (1.6-2.3); Phosphorus 3.4 mg/dl (2.5-4.5); Potassium 4.4 mmol/L (3.5-5.1); Sodium 134 mmol/L (135-145); Total Bilirubin 1.1 mg/dl (0.2-1.3); Total Protein 4.8 g/dl (6.3-8.2); eGFR > 60.00
[2024-02-01 04:18] LABS: Troponin I 0.075 ng/ml
--- NOTE | 2024-02-01 05:41 | PTCARENOTE ---
received pt from moises RN, assessments completed, at bedside.
patient sedated but will open her eyes and become very frightened when she is turned, patient will kick legs and try to pull at restraints. able to help calm her, and prn given if needed
patient remains on levo, fentanyl, propofol, precedex, ivf and abx. tmax for this shift is 99.8, per CUSTOMER EXPERIENCE STRATEGIST will start IV tylenol if fever goes above 100.0
labs drawn and sent, no new orders at this time.
heller patent for light tea colored, average 40-50ml hr. patient currently on period, flow is slowing, changed pad x 1 this shift.
patient turned and repositioned q2, tolerating well.
no further needs at this time, all questions answered for ,
[2024-02-01 07:17] LABS: Glucose - Point of Care 86 mg/dl (70-99)
--- NOTE | 2024-02-01 08:07 | W.PN.HOSP.TC ---
Today's Communication/Plan
-
vent management per bow machine operator
cont ABX
transfuse 2 units pRBC
renew drips
replace lytes
apprec all consultants'
Assessment / Plan
Assessment / Plan
pt is a 38 year old female
Cardiac Arrest/A-Fib with RVR/possible VF or VT since shock delivered by AED--unknown trigger/cause--Time down is unknown as patient was unresponsive when woke--AED shock administered x 1 and ROSC achieved at the scene--CXR with R > L
pulmonary opacities--Continue vent support--apprec Stator Tester/Cardiology--CT head without acute intracranial abnormalities--tox screen positive for amphetamines/marijuana (consistent with medication intake)--Chest CT negative for PE but positive
for extensive bilateral PNA --? QT prolongation / arrhythmia secondary to medications/sedatives-- Echo with EF 55% and bileaflet mitral valve prolapse
VDRF--Secondary to the above--cont zosyn--Sedation for now to allow for vent support--apprec pulm/bow machine operator--vent management per them
Hypotension--Shock - likely cardiogenic although with pna, cannot rule out septic shock--BP slightly improved after cardioversion--IVF support--transfuse 2 more units pRBC--cont levophed--cont zosyn
hypocalcemia/hypomagnesemia--replete
Menorrhagia/acute on chronic blood loss Anemia from heavy menses--Hgb = 6.3 on initial labs--s/p 2 units pRBC and will transfuse 2 more kain with BP 84/57 --? underlying coagulopathy with history of miscarriages
Non-Gapped Metabolic Acidosis/Hypokalemia from shock/arrest- -IVF support. Follow for improvement with lyte replacement, adequate perfusion, etc.
DVT prophylaxis: Lovenox for now - therapeutic dosing if appropriate following CTA
Code Status: Full
spoke with at bedside
Total Critical Care Time 32 minutes. I was immediately available to the patient and staff. I personally examined, reviewed labs, diagnostic images/reports, interpretations, treatment plans, discussed patient care with other providers and family
or caregivers (if patient is unable to make decisions), entered orders as appropriate and documented the medical record.
Anticipated Discharge: > 48 hours
Subjective/Interval History
-
Date of Service: February 01, 2024
pt intubated but arousable
Objective Data
-
Labs:
Laboratory Results
02/01/24 02/01/24
03:41 12:00
WBC 13.5 H
Hgb 7.0 L Pending
Hct 22.7 L
Plt Count 199 D
HCO3 19.4 L
Sodium 134 L
Potassium 4.4
Chloride 111 H
Carbon Dioxide 19 L
BUN 10
Creatinine 0.4 L
Glucose 101 H
Calcium 7.4 L
Total Bilirubin 1.1
AST 55 H
ALT 59 H
Alkaline Phosphatase 32 L
Vital Signs:
max temp for 24 hours
02/01/24
04:30
Temp 99.7 F
Vital Signs
Temp Pulse Resp BP Pulse Ox
100.1 F 106 26 84/57 95
02/01/24 08:05 02/01/24 05:30 02/01/24 05:30 01/31/24 20:09 02/01/24 05:15
I&O
01/31/24 02/01/24 02/02/24
06:59 06:59 06:59
Intake Total 0 / 0 5094.9 / 5094.9
Output Total 2227 / 2227
Balance 0 / 0 2867.9 / 2867.9
Review of Systems
-
Unable to obtain full review of systems at this time due to: Patient Intubation
Physical Exam
-
General: Well Developed, Well Nourished, No Apparent Distress and Intubated
HEENT: Normocephalic and Atraumatic
Respiratory: Rhonchi
Cardiac: Regular Rhythm and S1/S2; Negative Murmur
GI: Soft, Nontender, Nondistended and Normal Bowel Sounds
Musculoskeletal: No Clubbing, No Cyanosis and No Edema
Neuro: Sedated
Psych: Calm
--- NOTE | 2024-02-01 08:17 | W.PN.CD ---
Today's Communication / Plan
-
- updated echocardiogram is benign
- LHC and EP evaluation before discharge. She will very likely need secondary prevention ICD.
Impression / Plan
-
Impression: 38F with SCD.
History: MVP with mild to moderate MR and acute on chronic anemia. Night of admit took CBD gummies and diphenhydramine (ZzzQuil). heard agonal sounds, found no pulse, and started BLS. EMS arrived -> AED with shock delivered and ROSC. In ED
with AF/RVR and given DCCV as per ACLS. Now sedated/intubated and relatively stable in ICU.
Plan
SCD
- AED delivered shock which means device thought she had VT or VF. D/w and she did not have pulse/was lifeless.
- updated echocardiogram is benign
- LHC and EP evaluation before discharge. She will very likely need secondary prevention ICD.
Anemia
- volume resuscitate as needed
- Echo shows normal LVEF
PNA on CT
MVP with mild to moderate MR - Stable
Critically ill 32 minutes
Subjective: Sedated and intubated
TTE Apr 10: Normal EF, MVP with mild MR
Physical Exam
Vital Signs/Labs
Vital Signs
Temp Pulse Resp BP Pulse Ox
37.8 C 106 26 84/57 95
02/01/24 08:05 02/01/24 05:30 02/01/24 05:30 01/31/24 20:09 02/01/24 05:15
01/31/24 02/01/24 02/02/24
06:59 06:59 06:59
Actual Weight 145 lb 15.136 oz 148 lb 9.465 oz
02/01/24 03:41
Magnesium 1.9 mg/dl (1.6-2.3) 02/01/24 03:41
Triglycerides 171 mg/dl (10-149) H 01/31/24 09:13
TSH 6.72 uIU/ml (0.47-4.68) H 01/31/24 09:15
01/31/24
06:02
[id number]-P-Qianjxxckdw Pept 176
LAB Results
01/31/24 01/31/24 01/31/24
06:02 09:13 13:41
Troponin I < 0.012 0.070 H* D 0.112 H* D
01/31/24 02/01/24
20:28 03:41
Troponin I Cancelled 0.075 H*
Physical Exam
Constitutional: No acute distress
EENT: Anicteric and Moist mucous membranes
Cardiovascular: Rhythm & rate is regular, Systolic murmur absent and Diastolic murmur absent
Respiratory: Respiratory effort normal
GI: Soft
Data Reviewed
-
Date of Service: February 01, 2024
EKG: Other (Tele shows rare PVS and a couple of triplets)
[2024-02-01] MEDS: MAGNESIUM SULFATE 100 IV (08:21)
[2024-02-01] MEDS: NSS (PRESERVATIVE FREE) 10 ML IV (08:22)
[2024-02-01] MEDS: PROTONIX IV 40 MG IV (08:22)
--- NOTE | 2024-02-01 08:30 | W.PN.INTV ---
Today's Communication / Plan
Recommendations
Transition to assist-control ventilation
Wean propofol, ramp-up Precedex
Will hold on transfusion for now
Zosyn therapy, follow cultures, check MRSA screen
Daily EKG
Wean pressors as able
Assessment
-
38-year-old female with history of endometriosis, fibroids with heavy menses over the past 9 months, ADHD on chronic Adderall therapy ran out few days ago, was found with agonal breathing at around 5:00 per . CPR was started, police arrived,
AED placed, shock advised and delivered with return of spontaneous circulation. Patient intubated with #6 ET tube, possibly traumatic. In ED, atrial fibrillation with rapid ventricular response, DC cardioversion x 2 per ACLS, and sinus rhythm.
Patient with spontaneous movement of upper and lower extremities. Cooling protocol not pursued. Hemoglobin noted to be 6.3, patient given 2 units of blood in the ED. Metabolic acidemia per ABG. Patient was given potassium for potassium level of
3.3. Initial lactate 4.3. We are asked to help from critical care standpoint
Status post out of hospital cardiac arrest
CPR for about 3 to 5 minutes
AED with shock with ROSC
Atrial fibrillation with RVR, status post DC cardioversion in ED
Bilateral pulm infiltrates, staphylococcal pneumonia
No symptoms preadmission
Mild QT prolongation
Metabolic acidemia, nongap
Anemia, likely secondary to acute blood loss/menorrhagia
Menses
Conditions present prior to admission
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
None in the last 2 years
Endometriosis/fibroids
Heavy bleeding for the past 9 months
History of mitral valve prolapse
Plan/recommendations
At this time, patient is critically ill, ventilator dependent
ABG 7.34/36/82
Lactate improved, troponin trending down, LFTs improving
Patient with episodic panic attacks, sitting upright, states she cannot breathe.
Chest exam is clear
Chest x-ray with bilateral infiltrates, ET tube appropriate
Low-dose norepinephrine noted
Moving forward
We will try to increase Precedex, decrease propofol, assess for extubation
May be fine line in terms of managing sedation, comfort
Transition to AC 14/400/60%/5
Marginal hypoxia noted with this with agitation, goes down to 90%. When weaned to 40%, goes down to 86 to 87% with agitation
EKG with atrial fibrillation with rapid ventricular response. Mildly prolonged QT noted
EKG this morning adequate
Echocardiogram with normal biventricular function, MVP with mild to moderate MR
Required DC cardioversion x 2 for atrial fibrillation/RVR in the ED
Difficult to determine whether patient had VT/VF, shock in the field/AED
Patient on Adderall as outpatient, talk screen positive for amphetamines/marijuana. Patient takes CBD Gummies
According to , ran out of Adderall 3 to 4 days ago
Check MRSA screen, vancomycin as indicated
Tracheal culture positive for Staphylococcus
Has received 4 doses of Zosyn therapy
Suspect blood culture contaminant
Consider ID evaluation given bilateral pneumonia, ongoing menses
Legionella, streptococcal antigen negative
COVID, flu negative
Anemia noted
Given bilateral infiltrates, would avoid transfusion for now. Will follow
Per family, hemoglobin baseline is around 7 for the last 9 months
Did not give Lovenox yesterday
Will resume Lovenox today depending on how she does
Metabolic acidemia noted, nongap
Lactate improved
Continue IV fluids
Follow blood sugars, sliding scale
Replete potassium, magnesium
Continue IV fluids for now, LR
DVT prophylaxis: Mechanical prophylaxis for now. Hold Lovenox given heavy menorrhagia for now, consider resuming today
GI prophylaxis: Continue pantoprazole given shock/cardiac arrest, anemia
Reviewed at length with critical care nursing, respiratory care, pharmacy
Reviewed with primary service, cardiology updated
, mother, sister
All questions answered
TCCT 45 min
Subjective Dataa
Subjective Data
Date of Service:
Date of Service: February 01, 2024
Subjective:
Patient remains critically ill, ventilator dependent. Episodes of significant anxiety requiring propofol, fentanyl, Precedex. Mild to moderate secretions, good cough with suction. No arrhythmias overnight. Hemoglobin down to 7.0. Required
low-dose norepinephrine overnight. Received few boluses of fluid.
Objective Data
Data Reviewed
Vital Signs / I&O / Oxygen:
Vital Signs
Temp Pulse Resp BP Pulse Ox
100.1 F 85 17 84/57 96
02/01/24 08:05 02/01/24 08:15 02/01/24 08:15 01/31/24 20:09 02/01/24 08:15
Intake and Output
01/31/24 02/01/24 02/02/24
06:59 06:59 06:59
Intake Total 0 / 0 5094.9 / 5233.5 277.2 / 277.2
Output Total 2227 / 2227
Balance 0 / 0 2867.9 / 3006.5 277.2 / 277.2
SaO2 [ASV] 97
SaO2 [A/C] 93
SaO2 96
Physical Exam
General: Comfortable, Other (Left upper extremity A-line, right upper extremity PICC) and Other (Pallorous)
HEENT: Normocephalic and Anicteric
Cardiovascular: S1-S2, Regular Rhythm, Murmur (n), Rub (n), Peripheral Edema (n) and Calf Tenderness (n)
Respiratory: Wheeze (n), Crackles (n), Rhonchi (n), Non-Labored Respirations and ET Tube
GI: Soft, Non Distended and Non Tender
Neurology: Lethargic (Sedated but following commands, squeezes hand, moves extremities.)
Skin: Cyanosis (n), Jaundice (n), Rash (n) and Other (Pallorous)
Labs/Micro/Reports
Lab Data
02/01/24 03:41
Laboratory Results
01/31/24 01/31/24 02/01/24
08:56 13:19 03:41
pH 7.22 L 7.42 7.34 L
pCO2 43 H 30 L 36 H
pO2 78 L 194 H 82 L
HCO3 17.6 L 19.5 L 19.4 L
O2 Delivery Level Not Reportable
Microbiology
01/31/24 06:02 Blood/Venous Blood Culture - Preliminary
Positive culture in progress
01/31/24 06:02 Blood/Venous Gram Stain - Preliminary
01/31/24 06:05 Blood/Venous Blood Culture - Preliminary
No Growth in 24 hours- Final report to follow
01/31/24 09:23 Tracheal Aspirate Gram Stain - Preliminary
01/31/24 09:13 Urine Legionella Urinary Antigen - Final
Negative for Legionella pneumophila Serogroup 1 antigen.
A negative result does not rule out the possiblity of
Legionella infection due to other serogroups or species of
Legionella. Clinical correlation is recommended.
01/31/24 09:13 Urine Streptococcus pneumoniae Antigen (M - Final
Negative for Streptococcus pneumoniae antigen.
A negative result does not exclude infection with
Streptococcus pneumoniae. Clinical correlation is
recommended.
01/31/24 07:14 Nasal Swab Influenza Types A & B (ALENA) - Final
Negative for Influenza A & B, NAAT
Negative results must be combined with clinical observations
and patient history.
Nucleic Acid Amplification test (NAAT)performed on the
[employer] platform.
[2024-02-01] MEDS: SUBLIMAZE 100 IV (08:51)
[2024-02-01] MEDS: PRECEDEX 100 IV (09:22)
[2024-02-01 10:45] LABS: B.E. -5.1 mmol/L; HCO3 19.8 mmol/L (21-28); O2 Saturation % 98.3 % (94-98); PCO2 35 mmHg (32-35); PO2 85 mmHg (83-108); pH 7.36 (7.35-7.45)
--- NOTE | 2024-02-01 11:22 | W.PN.UPDATE ---
Update Note
Progress Note Update
Patient with continued wean throughout the day with sedation
Did better with higher dose Precedex. Propofol discontinued, fentanyl discontinued
Patient with episodic agitation, feeling she cannot breathe
Chest exam clear, hemodynamic stable
Intermittent hypotension noted
Remained at bedside for greater than 40 minutes during wean
Repeat ABG reviewed
Clinical decision to extubate to high flow vs continued mechanical ventilation and increased sedation
Cuff leak present
Patient did well postextubation, adequate cough
Remains on high flow, 100%, wean FiO2 as able
Incentive spirometry, airway clearance and
Head of bed elevated
Reviewed at length with critical care nursing, respiratory care, pharmacy
ID has been consulted
Reviewed with primary service, cardiology and updated family members multiple times throughout the day
TCCT 42 min
--- NOTE | 2024-02-01 11:53 | CM ---
CM following re: discharge planning.
Discussed in Rounds, reviewed pt's chart, met with pt and pt's [place] and pt's sister who is PA at bedside. Pt's and pt's sister participated in Rounds meeting.
Pt is 38 year old female, admitted with primary dx of status post out of hospital cardiac arrest, intubated in the field, extubated this morning to 55L HFNC with FIO2 100% and weaned to 90%.
Per he and the pt and 2 young children 8 and 9 year of age live in a 2SH, 2 steps to enter. 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
PCP: Roberta Connor
Pharmacy: [facility]
D/C plan; home with anticipated no needs. to transport at discharge.
CM will follow with discharge plan updates as hospitalization progresses
[2024-02-01 11:58] LABS: Glucose - Point of Care 136 mg/dl (70-99)
--- NOTE | 2024-02-01 12:00 | PTCARENOTE ---
Extubated at 1105 to HFNC 55L 90%. SpO2 97%.
Pt alert and forgetful. Following commands. Off all sedation.
Sinus rhythm. BP stable off Levophed.
Rhonchi bilaterally. Weak cough. Encouraged to cough, DB and use I/S.
Abdomen soft. No BM.
Guzman draining clear yellow.
All other assessments unchanged.
--- NOTE | 2024-02-01 13:41 | CON.ID ---
Consultation
-
Date/Time Consultation Requested: 02/01/2024 1114
Date/Time Consultation Performed: 02/01/2024 1341
Requesting Provider: Dr. Harman
Performing Provider: Dr. Benitez
Reason for Consultation: Pneumonia
Chief Complaint / Past History
History of Present Illness
Heaven Gomes is a 38-year-old female being evaluated at the request of Dr. Harman in regards to pneumonia. History is obtained from chart review, along with patient interview. Additionally, history was obtained from the patient's sister
and who are at the bedside.
The patient has a significant past medical history of mitral valve prolapse with regurgitation who was in her usual state of health until the rpg programmer hours of 01/31/2024 when her awoke around 5:30 AM to the sound of 'agonal breathing'.
When he turned on the light, he found the patient limp and unresponsive. 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 He immediately called 911 and began chest compressions. He reports that police arrived within
approximately 3 minutes. An AED was placed and gave 1 shock. Paramedics subsequently arrived and the patient was transported to the hospital emergently, with intubation performed en route. Upon arrival in the ER she was found to be in atrial
fibrillation with RVR. Ultimately, she was admitted to the intensive care unit.
She admission she has been extubated and is now on high flow O2. She has been found to have bilateral lower lung consolidation concerning for pneumonia, and additionally is noted to have a leukocytosis today, and Infectious Diseases is asked to
manage further antimicrobial therapy.
At present she denies any fevers or chills. She does note some chest discomfort.
Past History
Additional Past Medical History:
Interstitial cystitis
Mitral valve prolapse with regurgitation
Anemia
ADHD
Endometriosis
Past Surgical History: Gynecological
Allergy History:
No Known Allergies Allergy (Verified 01/31/24 05:57)
Medications Reviewed: Yes
Current Antibiotics:
Zosyn 3.375 g IV every 6 hours
Social History
Tobacco: Non-Smoker
Alcohol: Occasional
Drug: None
Personal:
Living: With Family
Employment: Other ([id number] mother)
Family History
Family History: Not Pertinent
Review of Systems
Vital Signs
Temp Pulse Resp BP Pulse Ox
100.2 F 81 17 116/73 96
02/01/24 12:06 02/01/24 11:45 02/01/24 11:45 02/01/24 11:15 02/01/24 12:20
Physical Exam
Physical Exam
Constitutional: Comfortable, Acutely Ill and Non-toxic
Eyes: Pupils Equal, Pupils Round, No Conjunctival Hemorrhage and Sclera Anicteric
Oral: No Thrush and No Ulcers
Cardiovascular: Regular Rate and S1/S2; Negative S3/S4 or Murmur
Pulmonary: Coarse and Non Labored; Negative Wheezes
Gastrointestinal: Soft, Non Tender, Non Distended and Normal Bowel Sounds
Extremities: Negative Edema, Cyanosis, Erythema, Splinter Hemorrhage or Venous Insufficiency
Musculoskeletal: Negative Joint Swelling or Joint Effusion
Skin: Warm and Dry; Negative Rash or Jaundice
Neurological: Awake, Alert and Oriented
Psychological: Calm
.
Lab / Diagnostic Study Results
02/01/24 03:41
Abs Immat Gran (auto) 0.1 10^3/uL (0-0.05) H 01/31/24 06:02
Absolute Neuts (auto) 4.8 10^3/uL (1.4-6.5) 01/31/24 06:02
Absolute Lymphs (auto) 2.6 10^3/uL (1.2-3.4) 01/31/24 06:02
Absolute Monos (auto) 0.5 10^3/uL (0.1-0.6) 01/31/24 06:02
Absolute Basos (auto) 0.1 10^3/uL (0-0.2) 01/31/24 06:02
Immature Gran % 1.1 % (0-0.5) H 01/31/24 06:02
Neutrophils % 58.7 % (42.2-75.2) 01/31/24 06:02
Lymphocytes % 32.0 % (20.5-51.1) 01/31/24 06:02
Monocytes % 6.5 % (1.7-9.3) 01/31/24 06:02
Eosinophils % 1.1 % (0-6) 01/31/24 06:02
Basophils % 0.6 % (0-2) 01/31/24 06:02
Lactic Acid 1.5 mmol/L (0.7-2.0) 01/31/24 13:40
Microbiology Results
Micro:
02/01/24 09:39 Nasal Screen MRSA (PCR) - Final
Nose MRSA not detected - performed by PCR methodology.
01/31/24 09:23 Respiratory Culture - Preliminary
Tracheal Aspirate Staphylococcus aureus
Gram Stain - Preliminary
01/31/24 06:02 Blood Culture - Preliminary
Blood/Venous Positive culture in progress
Gram Stain - Preliminary
01/31/24 06:05 Blood Culture - Preliminary
Blood/Venous No Growth in 24 hours- Final report to follow
01/31/24 09:13 Legionella Urinary Antigen - Final
Urine Negative for Legionella pneumophila Serogroup 1 antigen.
A negative result does not rule out the possiblity of
Legionella infection due to other serogroups or species of
Legionella. Clinical correlation is recommended.
Streptococcus pneumoniae Antigen (M - Final
Negative for Streptococcus pneumoniae antigen.
A negative result does not exclude infection with
Streptococcus pneumoniae. Clinical correlation is
recommended.
01/31/24 07:14 Influenza Types A & B (ALENA) - Final
Nasal Swab Negative for Influenza A & B, NAAT
Negative results must be combined with clinical observations
and patient history.
Nucleic Acid Amplification test (NAAT)performed on the
[employer] platform.
Assessment / Plan
Out of hospital cardiac arrest
S/p VDRF
Positive blood culture; suspect contaminant
PNA; suspect aspiration
Leukocytosis
Recommendations:
Continue with Zosyn for the present.
Sputum culture currently with a Staph aureus isolate (PBP2a negative). Await further susceptibilities.
Follow-up CXR.
Monitor white count and temperature curve.
[2024-02-01 13:50] LABS: Hemoglobin 7.4 g/dL (12.0-16.0)
[2024-02-01] MEDS: OFIRMEV 100 IV (17:00)
[2024-02-01 17:55] LABS: Glucose - Point of Care 107 mg/dl (70-99)
--- NOTE | 2024-02-01 18:31 | PTCARENOTE ---
Pt more alert. Anxious at times. Family at bedside providing support.
A-line d/c'd.
Guzman d/c'd. OOB to BSC to void. Reported nausea with transfer. Reports improved once back in bed.
Chest PT completed by CLINICAL EDUCATION SPECIALIST.
Pt reporting chest pain with cough. Ofirmev given. Pt cough now noted as stronger and more productive.
Continue to encourage cough, DB and I/S.
Passed bedside swallow eval by nursing.
All other assessments unchanged.
--- NOTE | 2024-02-01 20:00 | PTCARENOTE ---
Resumed care of pt sitting up in bed with family at bedside. Pt extremely anxious and almost panic-like at times. Frequent emotional support provided. Pt forgetful and difficulty understanding current health situation. HR in the 90's in NSR on the
monitor. POX 94% on 60L/60% Hi flow NC. Pt desaturates to 88% with activity due to anxiety. Pt tachypneic, with harsh moist non productive cough. Lungs dec t/o, shallow, coughing when attempting deep breaths. + bowel, round abd. Pt able to void in
BSC with assistance when needed. Palpable peripheral pulses. +2 pitting B/L UE edema. Pale skin.Reddened area on left flank from defib pads. Knee high seq in place. Right dual picc in place infusing LR@100ml/hr. Pt NPO oral care provided. Pt
complaining of sternal pain, relief post Ofirmev administration. Family remains at bedside. Will continue to monitor.
[2024-02-01] MEDS: ATIVAN 1 MG IV (22:14)
--- NOTE | 2024-02-01 22:24 | PTCARENOTE ---
Pt extremely anxious/ panic-like with any activity. Lowering pts head, sitting on BSC. at bedside very helpful and calming for pt. PRN Ativan given as ordered. NO other issues to report at this time. remains at bedside. Will continue
to monitor.
[2024-02-01 23:26] LABS: Glucose - Point of Care 87 mg/dl (70-99)
[2024-02-02] VITALS (17 sets, daily range): BP systolic 93–139; BP diastolic 67–96; O2SAT 93–95; BMI 25.2
[2024-02-02] MEDS: OFIRMEV 100 IV (01:04)
--- NOTE | 2024-02-02 01:30 | PTCARENOTE ---
Pt tachycardic in the low 100's, oral temp 100.2, Pt complaining of pain and discomfort. PRN Ofirmev administered as ordered. remains at bedside. Will continue to monitor.
[2024-02-02] MEDS: ZOSYN 50 IV ×4 (04:31→21:09)
[2024-02-02 04:39] LABS: Hematocrit 22.5 % (37.0-47.0); Mean Corp Hgb Conc. 30.2 g/dL (33.0-37.0); Mean Corpuscular Volume 66.2 fL (81.0-99.0); Mean Platelet Volume 9.6 fL (7.4-10.4); Platelet Count 214 10^3/uL (130-400); Red Cell Dist. Width 20.5 % (11.5-14.5); White Blood Cell Count 14.4 10^3/uL (4.8-10.8)
[2024-02-02 04:40] LABS: Hemoglobin 6.8 g/dL (12.0-16.0)
[2024-02-02 05:06] LABS: Troponin I 0.036 ng/ml
[2024-02-02 05:11] LABS: ALT (SGPT) 40 U/L (0-35); AST (SGOT) 30 U/L (14-36); Albumin 2.5 g/dl (3.5-5.0); Alkaline Phosphatase 57 U/L (38-126); Blood Urea Nitrogen 10 mg/dl (7-17); Calcium 7.8 mg/dl (8.4-10.2); Carbon Dioxide 19 mmol/L (22-30); Chloride 112 mmol/L (98-107); Estimated Creatinine Clearance 108 ml/min; Glucose 78 mg/dl (70-99); Magnesium 1.7 mg/dl (1.6-2.3); Potassium 3.5 mmol/L (3.5-5.1); Sodium 135 mmol/L (135-145); Total Bilirubin 0.9 mg/dl (0.2-1.3); Total Protein 4.7 g/dl (6.3-8.2); eGFR > 60.00
--- NOTE | 2024-02-02 05:15 | PTCARENOTE ---
Pt sleeping well overnight, wakes up panicked at times, easily goes back to sleep after some emotional support. Hi [place] NC remains on and now 60L/70%. Pt tachypneic at times. POX 96% at this time. Pt assisted to BSC this am, scant blood noted. Vital
signs remain stable. at bedside. Will continue to monitor.
[2024-02-02 06:21] LABS: Glucose - Point of Care 89 mg/dl (70-99)
[2024-02-02] MEDS: MAGNESIUM SULFATE 50 IV (06:49)
--- NOTE | 2024-02-02 07:46 | W.PN.INTV ---
Today's Communication / Plan
Recommendations
Out of bed to chair, ambulate
Incentive spirometry
Replete electrolytes
Wean oxygen as able advance diet
Start pharmacological prophylaxis
Assessment
-
38-year-old female with history of endometriosis, fibroids with heavy menses over the past 9 months, ADHD on chronic Adderall therapy ran out few days ago, was found with agonal breathing at around 5:00 per . CPR was started, police arrived,
AED placed, shock advised and delivered with return of spontaneous circulation. Patient intubated with #6 ET tube, possibly traumatic. In ED, atrial fibrillation with rapid ventricular response, DC cardioversion x 2 per ACLS, and sinus rhythm.
Patient with spontaneous movement of upper and lower extremities. Cooling protocol not pursued. Hemoglobin noted to be 6.3, patient given 2 units of blood in the ED. Metabolic acidemia per ABG. Patient was given potassium for potassium level of
3.3. Initial lactate 4.3. We are asked to help from critical care standpoint
Status post out of hospital cardiac arrest, intubated 01/30
CPR for about 3 to 5 minutes
AED with shock with ROSC
Extubated 02/01/2024
Atrial fibrillation with RVR, status post DC cardioversion in ED
Bilateral pulm infiltrates, staphylococcal pneumonia
No symptoms preadmission
Possible aspiration event
Mild QT prolongation
Metabolic acidemia, nongap
Anemia, likely secondary to acute blood loss/menorrhagia
Menses
Conditions present prior to admission
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
None in the last 2 years
Endometriosis/fibroids
Heavy bleeding for the past 9 months
History of mitral valve prolapse
Plan/recommendations
At this time, patient is critically ill, hypoxic, respiratory status is tenuous
Extubated yesterday, requiring high flow since
Episodes of panic/anxiety tonight, rapid shallow breathing
Received 1 dose of Ativan
Lactate improved, troponin trending down, LFTs improving
Chest exam with bibasilar egophony, decreased breath sounds
Off pressors
Moving forward
Ramp-up airway clearance, incentive spirometry
Out of bed to chair, ambulate as able
Wean oxygen as able
Minimize, avoid anxiolytic therapy if possible
Recommend sleeping with head of bed elevated
EKG with atrial fibrillation with rapid ventricular response. Mildly prolonged QT noted
EKG this morning adequate
Echocardiogram with normal biventricular function, MVP with mild to moderate MR
Required DC cardioversion x 2 for atrial fibrillation/RVR in the ED
Difficult to determine whether patient had VT/VF, shock in the field/AED
Patient on Adderall as outpatient, talk screen positive for amphetamines/marijuana. Patient takes CBD Gummies
According to , ran out of Adderall 3 to 4 days ago
Cardiology following
Tracheal culture positive for Staphylococcus
MRSA negative
Remains on Zosyn therapy
Legionella, streptococcal antigen negative
ID following
COVID, flu negative
Anemia noted
Given bilateral infiltrates, would avoid transfusion for now. Will follow
Per family, hemoglobin baseline is around 7 for the last 9 months
Did not give Lovenox yesterday. Will resume today
Mechanical prophylaxis
Maintain active type and screen for now
Discontinue IV fluids
Lactate improved
Advance diet as able
Follow blood sugars, sliding scale
Replete potassium, magnesium
Will consider neurological evaluation given possibility of anoxic injury post CPR
DVT prophylaxis: Mechanical prophylaxis for now. Menses has decreased flow. Start pharmacological prophylaxis
GI prophylaxis: Continue pantoprazole given shock/cardiac arrest, anemia
Reviewed at length with critical care nursing, respiratory care, pharmacy
Reviewed with primary service
, mother, sister
All questions answered
TCCT 35 min
Subjective Dataa
Subjective Data
Date of Service:
Date of Service: February 02, 2024
Subjective:
Patient remains critically ill, requiring high flow oxygen. Occasionally desaturates to 82% when she takes off her high flow. She is forgetful, cannot recall events. Denies chest pain, nausea, abdominal pain
Objective Data
Data Reviewed
Vital Signs / I&O / Oxygen:
Vital Signs
Temp Pulse Resp BP Pulse Ox
99.5 F 104 19 135/83 92
02/02/24 03:04 02/02/24 06:30 02/02/24 06:30 02/02/24 06:15 02/02/24 06:30
Intake and Output
02/01/24 02/02/24 02/03/24
06:59 06:59 06:59
Intake Total 5094.9 / 5233.5 2834.0 / 2834.0
Output Total 2227 / 2227 1925 / 1925
Balance 2867.9 / 3006.5 909.0 / 909.0
SaO2 [ASV] 97
SaO2 [A/C] 93
SaO2 92
Nasal Cannula flow liters per 60
minute
Physical Exam
General: Respiratory Distress (Rapid shallow breathing with activity), Other (Upper extremity PICC line) and Other (Pallorous)
HEENT: Normocephalic and Anicteric
Cardiovascular: S1-S2, Regular Rhythm (Tachycardic), Murmur (n), Rub (n), Peripheral Edema (n) and Calf Tenderness (n)
Respiratory: Wheeze (n), Crackles (n), Rhonchi (n), Accessory Resp Muscle Use (Yes with conversation, movement), Egophony (Bibasilar) and Other (Decreased at the base)
GI: Soft, Non Distended and Non Tender
Neurology: Awake, Alert, No Motor Deficits (Moves all extremities) and Other (Not oriented to hospital)
Skin: Cyanosis (n), Jaundice (n), Rash (n) and Other (Pallorous)
Labs/Micro/Reports
Lab Data
02/02/24 04:30
02/02/24 04:30
Laboratory Results
02/01/24
10:35
pH 7.36
pCO2 35
pO2 85
HCO3 19.8 L
O2 Delivery Level
Microbiology
01/31/24 06:05 Blood/Venous Blood Culture - Preliminary
No Growth in 48 hours- Final report to follow
01/31/24 09:23 Tracheal Aspirate Respiratory Culture - Preliminary
Staphylococcus aureus
01/31/24 09:23 Tracheal Aspirate Gram Stain - Preliminary
02/01/24 09:39 Nose Nasal Screen MRSA (PCR) - Final
MRSA not detected - performed by PCR methodology.
01/31/24 06:02 Blood/Venous Blood Culture - Preliminary
Positive culture in progress
01/31/24 06:02 Blood/Venous Gram Stain - Preliminary
01/31/24 09:13 Urine Legionella Urinary Antigen - Final
Negative for Legionella pneumophila Serogroup 1 antigen.
A negative result does not rule out the possiblity of
Legionella infection due to other serogroups or species of
Legionella. Clinical correlation is recommended.
01/31/24 09:13 Urine Streptococcus pneumoniae Antigen (M - Final
Negative for Streptococcus pneumoniae antigen.
A negative result does not exclude infection with
Streptococcus pneumoniae. Clinical correlation is
recommended.
01/31/24 07:14 Nasal Swab Influenza Types A & B (ALENA) - Final
Negative for Influenza A & B, NAAT
Negative results must be combined with clinical observations
and patient history.
Nucleic Acid Amplification test (NAAT)performed on the
[employer] platform.
--- NOTE | 2024-02-02 08:01 | W.PN.CD ---
Today's Communication / Plan
-
LHC and EP evaluation before discharge. She will very likely need secondary prevention ICD.
Impression / Plan
-
Impression: 38F with SCD.
History: MVP with mild to moderate MR and acute on chronic anemia. Night of admit took CBD gummies and diphenhydramine (ZzzQuil). heard agonal sounds, found no pulse, and started BLS. EMS arrived -> AED with shock delivered and ROSC. In ED
with AF/RVR and given DCCV as per ACLS. Now sedated/intubated and relatively stable in ICU.
Plan
SCD
- AED delivered shock which means device thought she had VT or VF. D/w and she did not have pulse/was lifeless.
- updated echocardiogram is benign
- LHC and EP evaluation before discharge. She will very likely need secondary prevention ICD.
Anemia
- volume resuscitate as needed
- Echo shows normal LVEF
PNA on CT
MVP with mild to moderate MR - Stable
Critically ill 31 minutes
Subjective: Somnolent. CP from BLS
TTE Apr 10: Normal EF, MVP with mild MR
Physical Exam
Vital Signs/Labs
Vital Signs
Temp Pulse Resp BP Pulse Ox
37.5 C 90 32 137/79 94
02/02/24 03:04 02/02/24 07:45 02/02/24 07:45 02/02/24 07:00 02/02/24 07:45
02/01/24 02/02/24 02/03/24
06:59 06:59 06:59
Actual Weight 148 lb 9.465 oz 146 lb 9.718 oz
02/02/24 04:30
02/02/24 04:30
Magnesium 1.7 mg/dl (1.6-2.3) 02/02/24 04:30
Triglycerides 171 mg/dl (10-149) H 01/31/24 09:13
TSH 6.72 uIU/ml (0.47-4.68) H 01/31/24 09:15
01/31/24
06:02
Ncd-C-Gztftzsnunb Pept 176
LAB Results
01/31/24 01/31/24 01/31/24
06:02 09:13 13:41
Troponin I < 0.012 0.070 H* D 0.112 H* D
01/31/24 02/01/24 02/02/24
20:28 03:41 04:30
Troponin I Cancelled 0.075 H* 0.036 H*
Physical Exam
Constitutional: No acute distress
EENT: Anicteric and Moist mucous membranes
Cardiovascular: Rhythm & rate is regular, Pedal edema is absent, Systolic murmur absent and Diastolic murmur absent
Respiratory: Respiratory effort normal
GI: Soft
Data Reviewed
-
Date of Service: February 02, 2024
EKG: Other (tele benign)
--- NOTE | 2024-02-02 08:19 | PTCARENOTE ---
recd restless, pulling off high flow, 'I want to go home, I don't want this'. pulse ox to 82, recovered quickly into low 90s. calmer, redirectable, anxious at times. alternatively hot/cold, blankets removed/applied for comfort. High flow
settings maintained.
--- NOTE | 2024-02-02 09:20 | W.PN.HOSP.TC ---
Addendum entered and electronically signed by Zelalem Giles MD 02/02/24 16:11:
Acute hypoxic respiratory failure
Original Note:
Today's Communication/Plan
-
Oxygen supplementation. IV antibiotics.
Assessment / Plan
Assessment / Plan
Physical exam:
General: Acutely ill but nontoxic. Well Developed, Well Nourished and No Apparent Distress
HEENT: Normocephalic, Atraumatic and Moist Mucous Membranes
Respiratory: Decreased breath sounds. Clear to Auscultation; Negative Wheezes, Rales or Rhonchi
Cardiac: Regular Rhythm and S1/S2
GI: Soft, Nontender and Nondistended
Musculoskeletal: No Clubbing, No Cyanosis and No Edema
Neuro: Awake, Alert and Oriented, memory impairment.
Psych: Calm
A/P:
pt is a 38 year old female
Cardiac Arrest/A-Fib with RVR/possible VF or VT since shock delivered by AED--unknown trigger/cause--Time down is unknown as patient was unresponsive when woke--AED shock administered x 1 and ROSC achieved at the scene--CXR with R > L
pulmonary opacities--Continue vent support--apprec Automation/Controls Manager/Cardiology--CT head without acute intracranial abnormalities--tox screen positive for amphetamines/marijuana (consistent with medication intake)--Chest CT negative for PE but positive
for extensive bilateral PNA --? QT prolongation / arrhythmia secondary to medications/sedatives-- Echo with EF 55% and bileaflet mitral valve prolapse. Patient extubated since yesterday.
Memory impairment-unclear if related to injury due to cardiac arrest but seems to be less likely due to the short amount of time for ROSC. Will reevaluate and if persistent will consider neurology evaluation.
VDRF--Secondary to the above--cont zosyn--Sedation for now to allow for vent support--apprec pulm/custodian blood bank--vent management per them
Hypotension--Shock - likely cardiogenic although with pna, cannot rule out septic shock--BP slightly improved after cardioversion--IVF support--transfuse 2 more units pRBC--cont levophed--cont zosyn
hypocalcemia/hypomagnesemia--replete
Menorrhagia/acute on chronic blood loss Anemia from heavy menses--Hgb = 6.3 on initial labs--s/p 2 units pRBC and will transfuse 2 more kain with BP 84/57 --? underlying coagulopathy with history of miscarriages. Hemoglobin 6.8 today. Automation/Controls Manager
would like to hold off on blood transfusions. Continue to monitor hemoglobin closely.
Non-Gapped Metabolic Acidosis/Hypokalemia from shock/arrest- -IVF support. Follow for improvement with lyte replacement, adequate perfusion, etc.
DVT prophylaxis: Lovenox for now - therapeutic dosing if appropriate following CTA
Code Status: Full
spoke with at bedside
Total time spent on today's encounter was 52 minutes which included time spent in counseling the patient/family regarding diagnosis and treatment plan as listed above, goals of care, and symptom management. Case was discussed with nursing staff,
specialists, and care coordinators/case management. All labs and imaging personally reviewed by me. Remainder the time spent in detailed review of previous records, lab data, imaging, and other medical provider documentation.
Anticipated Discharge: > 48 hours
Subjective/Interval History
-
Date of Service: February 02, 2024
Patient requires significant amount of oxygen. Extubated yesterday. She has some memory issues. Feels overall very tired.
Objective Data
-
Labs:
Laboratory Results
02/02/24
04:30
WBC 14.4 H
Hgb 6.8 L*
Hct 22.5 L
Plt Count 214
Sodium 135
Potassium 3.5
Chloride 112 H
Carbon Dioxide 19 L
BUN 10
Creatinine 0.5 L
Glucose 78
Calcium 7.8 L
Total Bilirubin 0.9
AST 30
ALT 40 H
Alkaline Phosphatase 57
Vital Signs:
Vital Signs
Temp Pulse Resp BP Pulse Ox
99.5 F 90 32 137/79 95
02/02/24 03:04 02/02/24 07:45 02/02/24 07:45 02/02/24 07:00 02/02/24 08:00
I&O
02/01/24 02/02/24 02/03/24
06:59 06:59 06:59
Intake Total 5094.9 / 5233.5 2834.0 / 2859.0 50 / 50
Output Total 2227 / 2227 192 / 192
Balance 2867.9 / 3006.5 909.0 / 934.0 50 / 50
[2024-02-02] MEDS: TYLENOL 650 MG PO ×3 (09:54→19:13)
--- NOTE | 2024-02-02 10:07 | PTCARENOTE ---
family present. oob to BSC then recliner, c/o cold, forgetful. diet to be advanced, took tylenol easily whole in applesauce, drinking water.
--- NOTE | 2024-02-02 10:32 | W.PN.ID1 ---
Date of Service
Date of Service: February 02, 2024
Today's Communication
Continue antibiotics.
Assessment / Plan
Out of hospital cardiac arrest
S/p VDRF
Anemia
Positive blood culture; likely coag negative staph; suspect contaminant
PNA; suspect aspiration
Leukocytosis
Recommendations:
Continue with Zosyn for the present.
Sputum culture currently with a Staph aureus isolate (PBP2a negative).
Follow-up CXR.
Monitor white count and temperature curve.
Chief Complaint
-: Leukocytosis, Pneumonia and Other (Heg-vg-lpcfdrtpiyp code)
Subjective / Review of Systems
Patient seen and examined. Reports general body ache, but does not localize to any specific area. No shortness of breath at present.
Vital Signs / Physical Exam
Vital Signs
Vital Signs
Temp Pulse Resp BP Pulse Ox
99.5 F 95 26 124/79 94
02/02/24 03:04 02/02/24 09:15 02/02/24 09:15 02/02/24 09:09 02/02/24 09:15
Physical Exam
Constitutional: No Acute Distress, Comfortable and Non-toxic
Eyes: No Conjunctival Hemorrhage and Sclera Anicteric
Cardiovascular: S1/S2; Negative S3/S4 or Murmur
Pulmonary: Non Labored; Negative Wheezes or Rales
Gastrointestinal: Soft, Non Tender and Non Distended
Skin: Negative Rash or Jaundice
Neurological: Awake (But somnolent.)
Psychological: Calm
Objective Data
Lab Data
Lab Results
02/02/24 04:30
02/02/24 04:30
Estimated Creat Clear 108 ml/min 02/02/24 04:30
Lactic Acid Cancelled 02/02/24 06:00
Total Bilirubin 0.9 mg/dl (0.2-1.3) 02/02/24 04:30
AST 30 U/L (14-36) 02/02/24 04:30
ALT 40 U/L (0-35) H 02/02/24 04:30
Alkaline Phosphatase 57 U/L (38-126) 02/02/24 04:30
Most recent labs reviewed.
Micro Results:
01/31/24 06:02 Blood Culture - Preliminary
Blood/Venous Positive culture in progress
Gram Stain - Preliminary
01/31/24 09:23 Respiratory Culture - Final
Tracheal Aspirate S aureus-Methicillin Sensitive
Gram Stain - Final
01/31/24 06:05 Blood Culture - Preliminary
Blood/Venous No Growth in 48 hours- Final report to follow
02/01/24 09:39 Nasal Screen MRSA (PCR) - Final
Nose MRSA not detected - performed by PCR methodology.
01/31/24 09:13 Legionella Urinary Antigen - Final
Urine Negative for Legionella pneumophila Serogroup 1 antigen.
A negative result does not rule out the possiblity of
Legionella infection due to other serogroups or species of
Legionella. Clinical correlation is recommended.
Streptococcus pneumoniae Antigen (M - Final
Negative for Streptococcus pneumoniae antigen.
A negative result does not exclude infection with
Streptococcus pneumoniae. Clinical correlation is
recommended.
01/31/24 07:14 Influenza Types A & B ([facility]) - Final
Nasal Swab Negative for Influenza A & B, NAAT
Negative results must be combined with clinical observations
and patient history.
Nucleic Acid Amplification test (NAAT)performed on the
[employer] platform.
Care Review
Plan reviewed with: Physician (Critical Care)
[2024-02-02] MEDS: KCL 100 IV (10:58)
--- NOTE | 2024-02-02 11:02 | PTCARENOTE ---
ambulated lap of ICU end of floor, used rolling walker, on 10/06 liters mid flow. c/o exhausted, 'I just want to go to bed'. Returned to room, settled in bed, tubes/lines/monitors remain, comfortable on side. aware and agreeable that she will
continue to get OOB after brief nap.
--- NOTE | 2024-02-02 11:45 | W.PN.UPDATE ---
Update Note
Progress Note Update
D/w Patient's sister - Maryse [facility] at [phone] and she relates:
- AED information (below)
- Her anemia of 6-7 was chronic and not new
- Heaven felt well before these events
--- NOTE | 2024-02-02 11:57 | RESPNOTE ---
patient pulled midflow cannula out of nose and desated to 70s. Midflow reapplied at 15L O2 and NRB 100%, current SPO2- 93% and slowly recovering. patient very tired from exertion. resting in bed, fidgeting with mask and pulling off, stating 'she
doesn't like it.' SPO2 dropped to 86% with NRB, patient mostly mouth breathing. explained to patient and family at bedside that NRB needs to remain on temporarily and no food at this time for fear of aspiration at this time. also explained if
patient cannot keep O2 on, mitts would need to be applied, to maintain adequate SPO2. patient agreeable, now resting on LEFT side, equal respirations of 22-26, mild to moderate SOB, slightly agitated and restless, able to be re-directed by
family/staff.
will wean O2 as tolerated.
[2024-02-02 12:00] LABS: Glucose - Point of Care 121 mg/dl (70-99)
--- NOTE | 2024-02-02 12:28 | PTCARENOTE ---
while in bed, pulled off oxygen, desat to 75%, resp called to bedside, 100% NRB placed. took several minutes to recover, resting, c/o hungry, seen by Dr. Giles, diet advanced, update on L rib redness, will continue to evaluate.
--- NOTE | 2024-02-02 13:31 | PTCARENOTE ---
ate lunch in recliner, to BSC, back to recliner, asking continually to get back in bed. family bedside. Emmanuel Torres, Chan, Saira in to visit throughout morning. Tolerating 12 l midflow.
--- NOTE | 2024-02-02 14:29 | CM ---
CM following re: discharge planning.
Discussed in Rounds, reviewed pt's chart. Pt's and pt's sister participated in Rounds meeting.
Per Rounds meeting pt extubated yesterday to 55L HFNC of O2, weaned to 8 L midflow NC, continue supportive care.
Per he and the pt and 2 young children 8 and 9 year of age live in a 2SH, 2 steps to enter. 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
D/C plan; home with anticipated no needs. to transport at discharge.
CM will follow with discharge plan updates as hospitalization progresses
--- NOTE | 2024-02-02 15:13 | CON.NEURO4 ---
Consultation - Neurology 4
-
CONSULTING PHYSICIAN: Jesusita Adame
REFERRING PHYSICIAN: Hospital/Typing Element Machine Operator
DICTATED BY: Jesusita Adame
DATE/TIME OF REQUEST: 02/02/24
DATE/TIME OF CONSULTATION: 02/02/24
Reason for Consultation: Memory problems
History of Present Illness:
Patient is a 38-year-old woman with a past medical history of uterine fibroids, menorrhagia, mitral valve prolapse who presented to hospital after probable cardiac arrest. Her had noted around 5 AM on the day of admission that she was
snoring but had not stopped as usual and he saw that her breathing rate was low and she was poorly responsive, he called 911 and started CPR quickly. AED was applied and shock was advised, she was brought via ambulance to the ER and was found to be
in atrial fibrillation with rapid ventricular response and did have cardioversion twice with conversion to sinus rhythm and was intubated. She did not undergo any hypothermia due to moving all extremities although was not obeying commands. CT head
noncontrast did not show any abnormalities including any edema or signs of anoxic brain injury. She has been in the ICU and has been being treated for aspiration pneumonia, did have some agitation receiving 1 mg lorazepam and eventually been able
to be extubated. Family and physicians had noted some memory problems prompting neurology consultation.
Patient reports she does not have any headache but does feel very tired and felt exhausted working with physical therapy. She does member working with physical therapy but not what she ate for breakfast this morning. No memory issues before this
hospitalization. Anxiety is mild at this time. Feels vision is at baseline. Has been able to eat, not noticing dysphagia. No unilateral weakness. Not able to remember much of the events of this hospitalization.
Past Medical History: Nephrolithiasis, mitral valve prolapse, cervical degenerative disc disease, menorrhagia, uterine fibroids
Surgical History: Myomectomy, right ureteroscopy/stent
Family History: History of mitral valve prolapse, atrial fibrillation in her father
Social History: lives at home with her family and and has 2 children she enjoys crafting and organizing, no tobacco use, infrequent alcohol use, some recent use of CBD Gummies for insomnia recently.
Allergies: No known drug allergies
Review of Symptoms:
Patient denies any fever, headache, chest pain, shortness of breath, GI or symptoms.
Physical Exam:
Middle aged woman no distress, pale skin, thin appearing, no trauma to head or neck, eyes clear, oropharnyx dry mucous membranes, no neck masses, heart rate regular, breathing unlabored, abdomen soft non tender, no lower extremity edema
Neurologic Examination:
Mental Status: Patient is sleeping on this examination and awakens easily and does show some drowsiness still. She is oriented to hospitalization, person, her family, can name her children as well as their correct birthdate and her 's
birthdate. There is no aphasia and she has intact naming repetition and comprehension of complex commands. Can name the months of the year backwards with some difficulty, does so easily forwards. Recalls the color of a credit card as red after 3
minutes. Memory recall for 3 vocabulary words is 0/3 after 5 minutes. No neglect.
Cranial Nerves: Pupils 3 mm equal round and reactive to light bilaterally, visual chapman full to confrontation, resting gaze midline, EOM are normal, no nystagmus, no ptosis, smile symmetric, no dysarthria, tongue midline, V1-V3 intact to light
touch bilaterally
Motor: Normal bulk and tone no tremor or abnormal movements, no pronator drift or fix, power 5/5 for shoulder abduction arm flexion hip flexion bilaterally
Sensory: Intact to light touch in upper and lower extremities
Reflexes: 2+ and symmetric biceps triceps brachioradialis patella and achilles, babinski negative, no clonus
Coordination: Normal finger to nose bilaterally
Gait: Uses walker, narrow base, no ataxia
Neuro Imaging: CT head non contrast unremarkable, no acute findings of edema and normal escobar white matter differentiation, no acute or chronic infarcts, no masses, no ventriculomegaly or hemorrhage
Impressions
1. Short-term memory difficulties after short lasting cardiac arrest and with atrial fibrillation with cardioversion to sinus rhythm. Did require intubation and small dose of lorazepam for agitation. Use of CBD Gummies recently and some use of
Adderall in the outpatient setting. Nonfocal neurologic examination with evidence of short-term memory impairment but long-term appears intact. At the least there is an element of toxic metabolic encephalopathy present from aspiration pneumonia,
sedatives, and acute illness. Acute psychological stress can also produce memory impairment. Would estimate that an anoxic brain injury is unlikely but still a possibility. Lower suspicion for acute stroke but did have brief period of atrial
fibrillation.
2. History mitral valve prolapse
3. Menorrhagic and history uterine fibroids
Recommendations:
1. Continue treating aspiration pneumonia and metabolic derangements as able
2. Check Vitamin B1, B12, Folate
3. Minimize sedating medications
4. Encouraged rest
5. Would wait another 1-2 days of stability before obtaining MRI brain without contrast non-urgently
6. Continue monitoring on cardiac telemetry
Discussed patient care with: Patient
--- NOTE | 2024-02-02 15:36 | PN.CDI ---
CDI
- -
CDI:
Physician Documentation Request
Admit Date: 01/31/24 07:29
Dear Doctor Chan,
Clinical Indicators:
Patient admitted with cardiac arrest; intubated in the field.
ABG on admission:
01/31/24
06:08
pH 7.28 L
pCO2 40 H
pO2 113 H
HCO3 18.8 L
ABG O2 Sat (Measured) 99.5 H
02/01 PN, 'VDRF...Patient requires significant amount of oxygen. Extubated yesterday.'
02/01 RT PN, 'patient pulled midflow cannula out of nose and desated to 70s. Midflow reapplied at 15L O2 and NRB 100%'
Please clarify the type and acuity of respiratory failure:
Acute hypoxic respiratory failure
Acute hypercapnic respiratory failure
Acute hypoxic/hypercapnic respiratory failure
Other, please specify
Use of terms such as suspected, likely, concern for, or probable (associated with a specific diagnosis that is being evaluated, monitored, or treated as if it exists) are acceptable and can be coded in the inpatient setting, when documented at the
time of discharge.
Thank you,
DARCIE Pino RN
CDI Specialist
available via tiger text
Please use your independent medical judgment in providing your response.
--- NOTE | 2024-02-02 15:47 | PTCARENOTE ---
ambulated again length of ICU/IMU hallway, RW, on midflow oxygen. notes tired. occas tearful regarding missing time/days/events. family supportive. back to room, brushed teeth in bathroom, voided, back to bed, resting. Dr. Adame in to evaluate.
[2024-02-02] MEDS: HYDROCORTISONE 1% CREAM 1 APPLIC TOPICAL (16:49)
[2024-02-02] MEDS: LOVENOX 40 MG SC ×2 (17:19→17:57)
[2024-02-02 17:40] LABS: Glucose - Point of Care 137 mg/dl (70-99)
--- NOTE | 2024-02-02 18:22 | PTCARENOTE ---
oob for dinner then ambulated in hallway on 14 l midflow. back to bed. forgetful. occas using NRB to keep sats >90.
[2024-02-02] MEDS: ULTRAM 25 MG PO (21:05)
--- NOTE | 2024-02-02 21:26 | PTCARENOTE ---
Pt is alert, confused to entire situation. Needs alot of reinforcement with short term memory. Family is at bedside to assist with her anxiety. Pt wakes from a sound sleep and states 'Im freaking out', and rips off midflow oxygen. Sister will spend
the night at bedside. Pt remains on 14L midflow with NRB as supplement. One time dose of Tramadol given for headache and sternal pain. Plan of care on going.
[2024-02-02 22:21] LABS: Glucose - Point of Care 135 mg/dl (70-99)
[2024-02-02] MEDS: TESSALON PERLES 200 MG PO (23:21)
[2024-02-03] VITALS (21 sets, daily range): BP systolic 89–148; BP diastolic 73–132; PULSE 90–91; O2SAT 94–97
--- NOTE | 2024-02-03 03:27 | PTCARENOTE ---
Pt requiring NRB mask more often, oxygen saturations drop with coughing fits, and recovery taking longer each time, RT placed pt on Highflow at 50L/100%. pt tolerating well. Sister remains at bedside.
[2024-02-03] MEDS: ZOSYN 50 IV ×2 (03:47→09:22)
[2024-02-03] MEDS: TYLENOL 650 MG PO ×5 (03:48→20:23)
[2024-02-03 04:25] LABS: % Basophils 0.2 % (0-2); % Eosinophils 1.3 % (0-6); % Immature Granulocytes 0.4 % (0-0.5); % Lymphocytes 6.2 % (20.5-51.1); % Monocytes 3.8 % (1.7-9.3); % Neutrophils 88.1 % (42.2-75.2); Absolute Eosinophils 0.2 10^3/uL (0-0.7); Absolute Immature Granulocytes 0.1 10^3/uL (0-0.05); Absolute Lymphocytes 0.9 10^3/uL (1.2-3.4); Absolute Monocytes 0.6 10^3/uL (0.1-0.6); Absolute Neutrophils 13.1 10^3/uL (1.4-6.5); Hematocrit 24.3 % (37.0-47.0); Hemoglobin 7.1 g/dL (12.0-16.0); Mean Corp Hgb Conc. 29.2 g/dL (33.0-37.0); Mean Corpuscular Hgb 19.8 pg (27.0-31.0); Mean Corpuscular Volume 67.7 fL (81.0-99.0); Mean Platelet Volume 9.6 fL (7.4-10.4); Nucleated Red Blood Cells % 0 %; Platelet Count 242 10^3/uL (130-400); Red Blood Cell Count 3.59 10^6/uL (4.20-5.40); Red Cell Dist. Width 20.9 % (11.5-14.5); White Blood Cell Count 14.9 10^3/uL (4.8-10.8)
[2024-02-03 04:44] LABS: Blood Urea Nitrogen 10 mg/dl (7-17); Calcium 8.3 mg/dl (8.4-10.2); Carbon Dioxide 24 mmol/L (22-30); Chloride 107 mmol/L (98-107); Estimated Creatinine Clearance 108 ml/min; Glucose 105 mg/dl (70-99); Potassium 3.8 mmol/L (3.5-5.1); Sodium 137 mmol/L (135-145); Triglycerides 135 mg/dl (10-149); eGFR > 60.00
[2024-02-03] MEDS: TESSALON PERLES 200 MG PO ×2 (06:46→20:30)
--- NOTE | 2024-02-03 07:12 | W.PN.NEURO.1 ---
Today's Communication / Plan
-
-Given high oxygen requirement would not pursue any brain MRI today, if continues to have high oxygen requirement I would rather pursue a CT head noncontrast tomorrow to ensure no significant structural abnormalities in the brain which is unlikely
based on her current neurologic exam
-Minimize sedating medications as able
-Planned for left cardiac catheterization, cardiac electrophysiology consultation
-Supportive care
Will follow
Neuro Assessment/Plan
Assessment
38-year-old woman with past medical history of insomnia, menorrhagia and uterine fibroids, mitral valve prolapse who presented to hospital with likely cardiac arrest likely had ROSC after a few minutes, had atrial fibrillation with RVR with 2
cardioversions in the ER, intubated. She was extubated on 01/31. CT head noncontrast showed no abnormalities on admission. Patient showing some retrograde and anterograde amnesia but otherwise no focal or neurologic deficits and doing fairly well
on side cognitive testing considering recent events.
Probably multifactorial reasons for her cognitive and memory issues, short cardiac arrest, sedative medications, acute severe illness and aspiration pneumonia. Any degree of anoxic brain injury would be considered very mild, suspicion for this is
low. No focal neurologic deficits highly concerning for an acute ischemic stroke, did have brief episode of atrial fibrillation.
Subjective/Objective
Subjective Data
Date of Service: February 03, 2024
No acute events, has some pain with coughing, mild dyspnea
Objective Data
Vital Signs
Temp Pulse Resp BP Pulse Ox
100.0 F 81 23 132/97 98
02/03/24 00:00 02/03/24 05:00 02/03/24 05:00 02/03/24 04:01 02/03/24 05:00
Lab Results
02/03/24 03:57
02/03/24 03:57
Sodium 137 mmol/L (135-145) 02/03/24 03:57
Potassium 3.8 mmol/L (3.5-5.1) 02/03/24 03:57
BUN 10 mg/dl (7-17) 02/03/24 03:57
Glucose 105 mg/dl (70-99) H 02/03/24 03:57
Calcium 8.3 mg/dl (8.4-10.2) L 02/03/24 03:57
Phosphorus 3.4 mg/dl (2.5-4.5) 02/01/24 03:41
Hrn-P-Ulqoyqqqlae Pept 176 pg/ml 01/31/24 06:02
Ur Buprenorphine Negative (Negative) 01/31/24 06:12
Patient Allergies
No Known Allergies Allergy (Verified 01/31/24 05:57)
Review of Systems
-
History Source: Patient
All other systems: Reviewed and negative
Constitutional: Fatigue
EENT: No Symptoms Reported
Respiratory: Cough
Cardiac: Chest Pain
Abdomen/GI: No Symptoms
Genitourinary: No Symptoms
Musculoskeletal: No Symptoms
Skin: No Symptoms
Neuro: See existing Neuro Note
Endocrine: No Symptoms
Hematologic / Lymphatic: No Symptoms
Allergy / Immunology: No Symptoms
Physical Exam
-
General: Comfortable and Wearing Oxygen
Eyes: [place] Conjunctivae and No Ptosis
HEENT: Normocephalic and Moist Mucous Membranes
Neck: No Bruits Bilaterally
Respiratory: Negative Accessory Resp Muscle Use
Cardiac: No Murmur
GI: Soft and Non-tender
Skin: Unremarkable, Warm and Dry
Extremities: No Clubbing
Psych: Other (Awake, pleasant, laughs); Negative Anxious
Extended Neurological Exam
Mood & Affect: Mood Unremarkable and Affect Unremarkable
Attention Span & Concentration: Awake, Alert, Interactive and Other (Obeys 3 step commands, normal praxis, no neglect, draws clock normally, draws flower, writes a sentence normally, some difficulty with subtracting 7 from 100 but gets it right with
effort)
Memory: Other (Recalls 1/3 objects after 5 minutes, recalls , does not remember meeting me yesterday)
Tremor: Hand Tremor Absent
Involuntary Movement: None
Speech: Quality Unremarkable and Quantity Unremarkable; Negative Expressive Aphasia, Receptive Aphasia or Dysarthric
Cranial Nerve II: Left Eye: Pupillary Reactivity Unremarkable and Visual Hicks Intact
Cranial Nerve II: Right Eye: Pupillary Reactivity Unremarkable and Visual Hicks Intact
Cranial Nerves III, IV, : Extraocular Movement: Extraocular Movement Full in all Directions
Cranial Nerve VII: Facial Symmetry: Normal Facial Symmetry
Pronator Drift: No Drift in Upper Extremities
Data Reviewed
-
CT Head: Report Reviewed and Image Reviewed
Labs: Report Reviewed
--- NOTE | 2024-02-03 07:16 | W.PN.INTV ---
Today's Communication / Plan
Recommendations
Incentive spirometry, wean oxygen
Encourage airway clearance, ambulate
Continue antibiotics
Discontinue Guzman
Daily EKG
Follow electrolytes
Avoid anxiolytics
Assessment
-
38-year-old female with history of endometriosis, fibroids with heavy menses over the past 9 months, ADHD on chronic Adderall therapy ran out few days ago, was found with agonal breathing at around 5:00 per . CPR was started, police arrived,
AED placed, shock advised and delivered with return of spontaneous circulation. Patient intubated with #6 ET tube, possibly traumatic. In ED, atrial fibrillation with rapid ventricular response, DC cardioversion x 2 per ACLS, and sinus rhythm.
Patient with spontaneous movement of upper and lower extremities. Cooling protocol not pursued. Hemoglobin noted to be 6.3, patient given 2 units of blood in the ED. Metabolic acidemia per ABG. Patient was given potassium for potassium level of
3.3. Initial lactate 4.3. We are asked to help from critical care standpoint
Status post out of hospital cardiac arrest, intubated 01/31/24
CPR for about 3 to 5 minutes
AED with shock with ROSC
Extubated 02/01/2024
Suspected VT based on rhythm from AED
Atrial fibrillation with RVR, status post DC cardioversion in ED
Bilateral pulm infiltrates, staphylococcal pneumonia
No symptoms preadmission
Possible aspiration event
Mild QT prolongation
Metabolic acidemia, nongap
Anemia, likely secondary to acute blood loss/menorrhagia
Menses
Conditions present prior to admission
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
None in the last 2 years
Endometriosis/fibroids
Heavy bleeding for the past 9 months
History of mitral valve prolapse
Anxiety
Plan/recommendations
At this time, patient is critically ill, hypoxic, respiratory status is tenuous
Desaturates to the low 70s when she takes high flow off or gets in the cough spasms
Continues to have episodes of panic attacks/anxiety especially through the night, cannot recall events
No further Ativan
Chest exam with bibasilar egophony, decreased breath sounds, improved
Off pressors
Moving forward
Continue airway clearance, incentive spirometry
Out of bed to chair, ambulate as able
Wean oxygen as able
Minimize, avoid anxiolytic therapy if possible
Recommend sleeping with head of bed elevated
EKG with atrial fibrillation with rapid ventricular response. Mildly prolonged QT noted
Daily EKG for now
Echocardiogram with normal biventricular function, MVP with mild to moderate MR
Required DC cardioversion x 2 for atrial fibrillation/RVR in the ED
After reviewing rhythm strips from AED, patient had VT. Reviewed with cardiology
Patient on Adderall as outpatient, tox screen positive for amphetamines/marijuana. Patient takes CBD Gummies
According to , ran out of Adderall 3 to 4 days ago, prior to admission
Eventual EP evaluation
Cardiology following
Tracheal culture positive for Staphylococcus
MRSA negative
Remains on Zosyn therapy, transition to Ancef
Legionella, streptococcal antigen negative
ID following
COVID, flu negative
Anemia noted
Given bilateral infiltrates, would avoid transfusion for now. Will follow
Per family, hemoglobin baseline is around 7 for the last 9 months
Menses improving
Appreciate neurology evaluation
Likely TME from acute illness
Follow. Eventual MRI imaging
Mechanical and pharmacological prophylaxis
Maintain active type and screen for now
Ambulate
Discontinue IV fluids, tolerating p.o.
Lactate improved
Follow blood sugars, sliding scale
Replete potassium, magnesium
DVT prophylaxis: Mechanical and pharmacological prophylaxis
GI prophylaxis: Continue pantoprazole given shock/cardiac arrest, anemia
Reviewed at length with critical care nursing, respiratory care, pharmacy
Reviewed with primary service, cardiology
, sister
All questions answered
TCCT 31 min
Subjective Dataa
Subjective Data
Date of Service:
Date of Service: February 03, 2024
Subjective:
Patient respiratory status remains tenuous, desaturates in the low 70s when takes mask off, high flow off, or with cough spasms. This morning, appears to be in better spirits, at least know she is in the hospital. Nonproductive cough. Pain with
deep inspiration coughing. Tolerating diet. Sister at bedside
Objective Data
Data Reviewed
Vital Signs / I&O / Oxygen:
Vital Signs
Temp Pulse Resp BP Pulse Ox
100.0 F 81 23 132/97 98
02/03/24 00:00 02/03/24 05:00 02/03/24 05:00 02/03/24 04:01 02/03/24 05:00
Intake and Output
02/02/24 02/03/24 02/04/24
06:59 06:59 06:59
Intake Total 2834.0 / 2859.0 1630 / 1630
Output Total 1925 / 1925 1525 / 1525
Balance 909.0 / 934.0 105 / 105
SaO2 [ASV] 97
SaO2 [A/C] 93
SaO2 98
Nasal Cannula flow liters per 50
minute
Physical Exam
General: Comfortable, Other (Upper extremity PICC line) and Other (Pallorous, less tachypneic)
HEENT: Normocephalic and Anicteric
Cardiovascular: S1-S2, Regular Rhythm (Tachycardic), Murmur (n), Rub (n), Peripheral Edema (n) and Calf Tenderness (n)
Respiratory: Wheeze (n), Crackles (n), Rhonchi (n), Accessory Resp Muscle Use (Yes with conversation, movement), Egophony (Left basilar, better air movement right base) and Other (Decreased at the base)
GI: Soft, Non Distended and Non Tender
Neurology: Awake, Alert, No Motor Deficits (Moves all extremities) and Other (Oriented to hospital, otherwise cannot recall events)
Skin: Cyanosis (n), Jaundice (n), Rash (n) and Other (Pallorous)
Labs/Micro/Reports
Lab Data
02/03/24 03:57
02/03/24 03:57
Microbiology
01/31/24 06:05 Blood/Venous Blood Culture - Preliminary
No Growth in 72 hours- Final report to follow
01/31/24 06:02 Blood/Venous Blood Culture - Preliminary
Positive culture in progress
01/31/24 06:02 Blood/Venous Gram Stain - Preliminary
01/31/24 09:23 Tracheal Aspirate Respiratory Culture - Final
S aureus-Methicillin Sensitive
01/31/24 09:23 Tracheal Aspirate Gram Stain - Final
02/01/24 09:39 Nose Nasal Screen MRSA (PCR) - Final
MRSA not detected - performed by PCR methodology.
01/31/24 09:13 Urine Legionella Urinary Antigen - Final
Negative for Legionella pneumophila Serogroup 1 antigen.
A negative result does not rule out the possiblity of
Legionella infection due to other serogroups or species of
Legionella. Clinical correlation is recommended.
01/31/24 09:13 Urine Streptococcus pneumoniae Antigen (M - Final
Negative for Streptococcus pneumoniae antigen.
A negative result does not exclude infection with
Streptococcus pneumoniae. Clinical correlation is
recommended.
01/31/24 07:14 Nasal Swab Influenza Types A & B (ALENA) - Final
Negative for Influenza A & B, NAAT
Negative results must be combined with clinical observations
and patient history.
Nucleic Acid Amplification test (NAAT)performed on the
[employer] platform.
--- NOTE | 2024-02-03 07:44 | W.PN.CD ---
Today's Communication / Plan
-
- EP consult
- LHC
- Secondary prevention ICD.
Impression / Plan
-
Impression: 38F with SCD.
History: MVP with mild to moderate MR and acute on chronic anemia. Night of admit took CBD gummies and diphenhydramine (ZzzQuil). heard agonal sounds, found no pulse, and started BLS. EMS arrived -> AED with shock delivered and ROSC. In ED
with AF/RVR and given DCCV as per ACLS. Now sedated/intubated and relatively stable in ICU.
Plan
SCD
- AED strips reviewed (in [facility] 'update note' January 31)
- With respect to etiology:
- updated echocardiogram is benign
- EKG benign except for slightly prolonged QTc (466 ms)
- will need to consider cardiac MRI and genetic testing, but this will not change Mrs. Gomes's inpatient management
- Treatment:
- EP consult
- LHC
- Secondary prevention ICD.
Anemia
- volume resuscitate as needed
- Echo shows normal LVEF
PNA on CT
MVP with mild to moderate MR - Stable
Critically ill 33 minutes
Subjective: CP with cough, dyspnea stable, palps with anxiety. Looks better
TTE Jan 10: Normal EF, MVP with mild MR
Physical Exam
Vital Signs/Labs
Vital Signs
Temp Pulse Resp BP Pulse Ox
37.8 C 81 23 132/97 98
02/03/24 00:00 02/03/24 05:00 02/03/24 05:00 02/03/24 04:01 02/03/24 05:00
02/02/24 02/03/24 02/04/24
06:59 06:59 06:59
Actual Weight 146 lb 9.718 oz
02/03/24 03:57
02/03/24 03:57
Magnesium 1.7 mg/dl (1.6-2.3) 02/02/24 04:30
Triglycerides 135 mg/dl (10-149) 02/03/24 03:57
TSH 6.72 uIU/ml (0.47-4.68) H 01/31/24 09:15
01/31/24
06:02
Gpf-W-Dqohrxqgoic Pept 176
LAB Results
01/31/24 01/31/24 01/31/24
09:13 13:41 20:28
Troponin I 0.070 H* D 0.112 H* D Cancelled
02/01/24 02/02/24
03:41 04:30
Troponin I 0.075 H* 0.036 H*
Physical Exam
Constitutional: No acute distress
EENT: Anicteric and Moist mucous membranes
Cardiovascular: Rhythm & rate is regular, Systolic murmur absent, Diastolic murmur absent and Pedal edema present
Respiratory: Respiratory effort normal
GI: Soft, Distention absent, Non tender and Normal bowel sounds
Neuro/Psych: Alert and Oriented
Data Reviewed
-
Date of Service: February 03, 2024
--- NOTE | 2024-02-03 08:00 | PTCARENOTE ---
Received patient from crew dispatcher. Patient is tearful, AAOx3, states that she has been forgetful and doesn't remember anything from the prior few days. Oriented at present. Sister is at bedside. She is on high flow 50L and 80%. Saturations in
high 80s while in bed, encourage IS at bedside. lungs diminished and coarse throughout. Harsh non productive frequent cough. Sinus rhythm/sinus tach on monitor. Patient is on regular diet, urinating in bedside commode. Rash noted on abdomen
and chest where defib pads were placed. right double lumen PICC medlocked at present. will use intermittently. Patient is able to make needs known. will assist into chair.
[2024-02-03 08:05] LABS: Glucose - Point of Care 102 mg/dl (70-99)
--- NOTE | 2024-02-03 08:47 | W.PN.HOSP.TC ---
Today's Communication/Plan
-
IV Abx. Cardiac monitoring. Oxygen.
Assessment / Plan
Assessment / Plan
Physical exam:
General: Acutely ill. Well Developed, Well Nourished and No Apparent Distress
HEENT: Normocephalic, Atraumatic and Moist Mucous Membranes
Respiratory: Decreased breath sounds. Clear to Auscultation; Negative Wheezes, Rales or Rhonchi
Cardiac: Regular Rhythm and S1/S2
GI: Soft, Nontender and Nondistended
Musculoskeletal: No Clubbing, No Cyanosis and No Edema
Neuro: Awake, Alert and Oriented, memory impairment.
Psych: Calm
A/P:
Cardiac Arrest-->
Probable VF or VT since shock delivered by AED--unknown cause but multiple etiologies proposed such as Adderal taper/anemia/hypokalemia/pna/r/o sarcoid/ r/o cad/ r/o long qt sdme/ or brugada/ etc--Time down is about 3-4 minutes. A Fib noticed but
unclear if contributing.
Patient doing better post extubation on 02/02.
Start Toradol as needed for MSK pain. Plan for cardiac cath, cardiac MRI, and AICD prior to d/c per cardiology.
Cont oxygen supplementation and PT and OT.
Discussed with family at bedside.
Memory impairment-unclear if related to injury due to cardiac arrest but seems to be less likely due to the short amount of time for ROSC. Appreciated neuro consult. Might need brain images down the road.
VDRF--> extubated and doing well on HFO. Taper as able.
Pneumonia--> Zosyn changed to IV Cefazolin. MSSA in sputum cx, Staph coag neg in blood cx ?contaminant, repeat blood cx in progress. ID on board.
Hypotension--Shock - likely cardiogenic although with pna, cannot rule out septic shock--Improved.
Menorrhagia/acute on chronic blood loss Anemia from heavy menses--Hgb = 6.3 on initial labs--s/p pRBC. Hb 7.1 today and cont to monitor.
Non-Gapped Metabolic Acidosis/Hypokalemia from shock/arrest- - improved
DVT prophylaxis: Lovenox
Code Status: Full
spoke with at bedside
Total time spent on today's encounter was 52 minutes which included time spent in counseling the patient/family regarding diagnosis and treatment plan as listed above, goals of care, and symptom management. Case was discussed with nursing staff,
specialists, and care coordinators/case management. All labs and imaging personally reviewed by me. Remainder the time spent in detailed review of previous records, lab data, imaging, and other medical provider documentation.
Anticipated Discharge: > 48 hours
Subjective/Interval History
-
Date of Service: February 03, 2024
c/o chest pain likely from cpr, still has some lack of recollection of what happened to her. On oxygen.
Objective Data
-
Labs:
Laboratory Results
02/03/24
03:57
WBC 14.9 H
Hgb 7.1 L
Hct 24.3 L
Plt Count 242
Sodium 137
Potassium 3.8
Chloride 107
Carbon Dioxide 24
BUN 10
Creatinine 0.4 L
Glucose 105 H
Calcium 8.3 L
Vital Signs:
Vital Signs
Temp Pulse Resp BP Pulse Ox
98.8 F 81 23 132/97 98
02/03/24 08:14 02/03/24 05:00 02/03/24 05:00 02/03/24 04:01 02/03/24 05:00
I&O
02/02/24 02/03/24 02/04/24
06:59 06:59 06:59
Intake Total 2834.0 / 2859.0 1630 / 1630
Output Total 1925 / 1925 1525 / 1525
Balance 909.0 / 934.0 105 / 105
[2024-02-03] MEDS: TORADOL 15 MG IV ×3 (08:51→20:59)
[2024-02-03] MEDS: HYDROCORTISONE 1% CREAM 1 APPLIC TOPICAL (09:00)
[2024-02-03 09:50] LABS: COVID-19 Antigen Negative (Negative)
--- NOTE | 2024-02-03 10:05 | W.PN.ID1 ---
Date of Service
Date of Service: February 03, 2024
Today's Communication
switch to cefazolin
Assessment / Plan
MSSA Pneumonia
Positive blood culture; likely coag negative staph; suspect contaminant
Out of hospital cardiac arrest
S/p VDRF
Anemia
Leukocytosis
Recommendations:
Sputum culture with moderate MSSA, no gram negatives
- anaerobic coverage generally not needed unless there is a lung abscess
Progressive Leukocytosis
Switched to cefazolin
Repeat blood cultures x2
Chief Complaint
-: Leukocytosis, Pneumonia and Other (Gsh-rs-rwradziqqes code)
Subjective / Review of Systems
Tmax 100.2
bp stable
on high flow NC
slight increase in wbc count
hgb 7.1
plt 242
cr 0.4
moderate MSSA from the sputum
gpcs in clusters in the 01/30 blood culture
Vital Signs / Physical Exam
Vital Signs
Vital Signs
Temp Pulse Resp BP Pulse Ox
98.8 F 80 15 104/92 99
02/03/24 08:14 02/03/24 09:45 02/03/24 09:45 02/03/24 07:19 02/03/24 09:45
Physical Exam
Constitutional: No Acute Distress
Cardiovascular: Regular Rate and S1/S2; Negative Murmur or Rub
Pulmonary: Symmetric, Coarse and Other (coughing throughout my exam ); Negative Wheezes or Rales
Gastrointestinal: Soft, Non Tender, Non Distended and Normal Bowel Sounds
Skin: Warm and Dry; Negative Rash or Jaundice
Neurological: Awake and Alert
Objective Data
Lab Data
Lab Results
02/03/24 03:57
02/03/24 03:57
Estimated Creat Clear 108 ml/min 02/03/24 03:57
Lactic Acid Cancelled 02/02/24 06:00
Total Bilirubin 0.9 mg/dl (0.2-1.3) 02/02/24 04:30
AST 30 U/L (14-36) 02/02/24 04:30
ALT 40 U/L (0-35) H 02/02/24 04:30
Alkaline Phosphatase 57 U/L (38-126) 02/02/24 04:30
Most recent labs reviewed.
Micro Results:
01/31/24 06:05 Blood Culture - Preliminary
Blood/Venous No Growth in 72 hours- Final report to follow
01/31/24 06:02 Blood Culture - Preliminary
Blood/Venous Positive culture in progress
Gram Stain - Preliminary
01/31/24 09:23 Respiratory Culture - Final
Tracheal Aspirate S aureus-Methicillin Sensitive
Gram Stain - Final
02/01/24 09:39 Nasal Screen MRSA (PCR) - Final
Nose MRSA not detected - performed by PCR methodology.
01/31/24 09:13 Legionella Urinary Antigen - Final
Urine Negative for Legionella pneumophila Serogroup 1 antigen.
A negative result does not rule out the possiblity of
Legionella infection due to other serogroups or species of
Legionella. Clinical correlation is recommended.
Streptococcus pneumoniae Antigen (M - Final
Negative for Streptococcus pneumoniae antigen.
A negative result does not exclude infection with
Streptococcus pneumoniae. Clinical correlation is
recommended.
01/31/24 07:14 Influenza Types A & B (ALENA) - Final
Nasal Swab Negative for Influenza A & B, NAAT
Negative results must be combined with clinical observations
and patient history.
Nucleic Acid Amplification test (NAAT)performed on the
[employer] platform.
[2024-02-03 10:52] LABS: Magnesium 1.8 mg/dl (1.6-2.3)
[2024-02-03] MEDS: ANCEF 10 IV ×2 (11:28→20:23)
--- NOTE | 2024-02-03 12:22 | PTCARENOTE ---
Patient weaned down to midflow, 10L. In chair with family. toradol ordered now for pain. has helped with persistent coughing. Repeat covid testing negative.
--- NOTE | 2024-02-03 12:33 | PTCARENOTE ---
working with physical therapy, for activity tolerance. Able to move and follow all commands, does become dyspneic and coughs frequently.
--- NOTE | 2024-02-03 12:41 | CON.EPS ---
Consultation
-
Date/Time Consultation Requested: 02/02/24
Date/Time Consultation Performed: 02/03/24
Reason for Consultation: cardiac arrest
Medical History
-
Chief Complaint: cardiac arrest
History of Present Illness:
38-year-old woman with a history of mitral valve prolapse and moderate mitral regurgitation, acute on chronic anemia secondary to menorrhagia presented with sudden cardiac arrest. Patient was found with agonal breathing by her while
sleeping. She was noted to have no pulse and CPR was done. Paramedics found her in ventricular tachycardia and cardioversion was done with confucianism of sinus rhythm. She was intubated in the field and was transferred to the hospital.
In the ER patient was noted to have atrial fibrillation and underwent another cardioversion.
She was admitted to the ICU. She was intubated with relative hypotension but recovered over the next few days. Her neurologic deficit has also resolved completely.
Today she is alert and awake. She is on nasal cannula oxygen and communicating appropriately. No neurologic deficits identified.
Of note, patient was on Adderall for her attention deficit. She had recently ran out of her Adderall few days prior to the event. She also took 2 CBD Gummies and Benadryl prior to sleep.
Patient's father has a history of atrial fibrillation and stroke but no premature coronary artery disease or cardiac arrest noted.
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
Past Medical History
Past Medical History: Valvular Disease (Moderate mitral regurgitation with mitral valve prolapse) and Other (Attention deficit disorder., Severe menorrhagia and endometriosis with severe anemia due to menorrhagia, nephrolithiasis, uterine fibroids)
Past Surgical History: Gynecological (S/p uterine fibroid myomectomy) and Urological (Right ureteric stent)
Past Electrophysiology History: None
Past EP Interventions: None
Social History
Drug: None
Living: With Family
Family History
Family History: Reviewed & Not Pertinent
Allergies / Home Medications
Allergy/AdvReac Type Severity Reaction Status Date / Time
No Known Allergies Allergy Verified 01/31/24 05:57
�Medication �Instructions �Recorded �Confirmed �Type
dextroamphetamine-amphetamine 20 20 mg PO BID@0700,1200 Mental 01/06/21 01/31/24 History
mg tablet (Adderall) Health/Anxiety
Review of Systems
-
History Source: Patient and Family
All other systems: Negative unless noted
Physical Exam
Vital Signs
Temp Pulse Resp BP Pulse Ox
97.8 F 82 22 104/92 99
02/03/24 12:14 02/03/24 11:47 02/03/24 11:47 02/03/24 07:19 02/03/24 11:47
Diagnostic Results
02/03/24 03:57
02/03/24 03:57
Troponin I 0.036 ng/ml H* 02/02/24 04:30
Lbu-H-Mqbgnqrjwjp Pept 176 pg/ml 01/31/24 06:02
EP Device Implant Data:
EP Device Interrogation Date:
Date of Last Echo: 01/31/24
LV Ejection Fraction: 55
CHADS Vasc Score: 1
Physical Exam
General: Well Developed, Well Nourished, No Apparent Distress and Comfortable
HEENT: Normocephalic, Anicteric and Moist Mucous Membranes
Respiratory: Non Labored Respirations
Cardiac: S1/S2, Regular Rhythm and Murmur
GI: Soft, Non Tender and Normal Bowel Sounds
Musculoskeletal: No Clubbing, No Cyanosis and No Edema
Skin: Warm and Dry
Neuro: Awake, Alert, Oriented, AO x 3 and No Motor Deficits
Impression / Plan
-
38-year-old woman with sudden cardiac arrest
Cardiac arrest
-Cardiac rest was noted secondary to medical tachycardia as noted on the EKG by the paramedics in the field.
-Patient is EKG shows borderline QT prolongation
-EKG is not diagnostic for any long QT syndrome. Cardiac arrest during sleep is usually indicative of long QT2 but there is no sign of any significant QT prolongation
-Other possibilities include Brugada versus sarcoidosis. Hypertrophic cardiomyopathy is ruled out with normal echo. She also has multiple other reasons which is noncardiac and may have been contributing to her cardiac arrest including withdrawal
from Adderall, use of CBD, severe anemia, severe hypokalemia which all may be playing a role in inducing her ventricular arrhythmia.
-Patient's EKG is not suggestive of Brugada as well. However, would recommend obtaining procainamide stress test to rule out any lead V1 to V3 ST changes with procainamide-this can be done as an outpatient.
-Obtain cardiac MRI to rule out sarcoidosis and/possible fibrosis or scarring
-Cardiac catheterization to rule out any coronary artery disease
-Would definitely recommend an ICD prior to discharge.
-I discussed options of various ICD's including subcutaneous ICD versus single-chamber ICD versus dual-chamber ICD. We also discussed [employer] subcutaneous ICD above the sternum as well as [employer] subcutaneous ICD below the sternum lead
with the possibility of ATP as well.
-Given patient also has a history of A-fib, the chances of getting an appropriate shock from subcutaneous ICD is higher due to T wave oversensing versus inappropriate tachycardia resembling V-fib which could be in atrial fibrillation with RVR.
-Also given her possibility of long QT, she may need atrial pacing to keep her heart rate on the higher side to shorten the QT interval. She will be requiring high dose of beta-blockers which may need more atrial pacing.
-After long discussion with the patient and the family, we all decided that she would benefit from dual-chamber ICD.
-We also discussed the possibility of atrial fibrillation. She was noted to have atrial fibrillation with RVR when presented to the ER. As we discussed this A-fib was indeed present immediately post CPR and cardiac cardioversion and may not be a
true diagnosis. Given that she will be receiving dual-chamber ICD, we can continue to monitor any recurrence of atrial fibrillation in future. At this time I do not feel that she has atrial fibrillation.
.
Summary of recommendations
-Left heart catheterization
-Cardiac MRI
-Dual-chamber ICD prior to discharge
-Outpatient follow-up for plan for procainamide induced stress test in the EP lab to rule out Down syndrome
Data Reviewed
-
EKG: Tracing Personally Visualized and interpreted, Discussed with Physician, Discussed with Nurse, Discussed with Patient and Discussed with Family
Radiology: Report Reviewed by me
Medical Tests (Nuc Med, Echo etc): Image Personally Visualized and interpreted
Labs: Labs Reviewed by me, Discussed with Physician, Discussed with Nurse, Discussed with Patient and Discussed with Family
Old Records: Reviewed
Critical Care Time (in minutes): 32
--- NOTE | 2024-02-03 13:28 | PTCARENOTE ---
Patient ambulated hallway, did full circumference of unit.
--- NOTE | 2024-02-03 16:29 | PTCARENOTE ---
Patient remains on 10 of midflow, will attempt to wean down further. Has been medicated for pain, instructed to splint her chest with pillow while coughing. Will continue to encourage deep breathing.
[2024-02-03] MEDS: LOVENOX 40 MG SC (18:08)
[2024-02-03] MEDS: MAALOX 30 ML PO (18:50)
--- NOTE | 2024-02-03 20:00 | PTCARENOTE ---
received patient. oriented x3. family at bedside. generalized weakness, assist x1. ST on monitor, 10L midflow, frequent dry harsh cough. splinting encouraged. diminished, coarse breath sounds noted. PRN meds given for aching sternal pain. chest PT
performed by RT. pt anxious about pain and situation overall. call flynn within reach. encouraged to notify RN of pain throughout night. care ongoing.
[2024-02-04] VITALS (22 sets, daily range): BP systolic 113–148; BP diastolic 69–99; BMI 25.1
--- NOTE | 2024-02-04 00:22 | PTCARENOTE ---
pt reassessed. pt satting 85-88%, anxious. 8L NRB applied on top of 12L midflow by RT. freq cough remains. pt now satting >95%. pt assist x1 OOB to bathroom. at bedside. care ongoing.
[2024-02-04] MEDS: ANCEF 10 IV ×3 (02:56→22:03)
[2024-02-04] MEDS: OFIRMEV 100 IV (02:56)
[2024-02-04] MEDS: TORADOL 15 MG IV ×2 (02:59→16:03)
[2024-02-04 03:00] LABS: % Basophils 0.4 % (0-2); % Eosinophils 4.5 % (0-6); % Immature Granulocytes 0.5 % (0-0.5); % Lymphocytes 12.6 % (20.5-51.1); % Monocytes 5.7 % (1.7-9.3); % Neutrophils 76.3 % (42.2-75.2); Absolute Eosinophils 0.5 10^3/uL (0-0.7); Absolute Immature Granulocytes 0.1 10^3/uL (0-0.05); Absolute Lymphocytes 1.3 10^3/uL (1.2-3.4); Absolute Monocytes 0.6 10^3/uL (0.1-0.6); Absolute Neutrophils 7.7 10^3/uL (1.4-6.5); Hematocrit 22.9 % (37.0-47.0); Mean Corp Hgb Conc. 30.6 g/dL (33.0-37.0); Mean Corpuscular Hgb 20.3 pg (27.0-31.0); Mean Corpuscular Volume 66.6 fL (81.0-99.0); Mean Platelet Volume 9.1 fL (7.4-10.4); Nucleated Red Blood Cells % 0.2 %; Platelet Count 228 10^3/uL (130-400); Red Blood Cell Count 3.44 10^6/uL (4.20-5.40); Red Cell Dist. Width 21.2 % (11.5-14.5); White Blood Cell Count 10.1 10^3/uL (4.8-10.8)
[2024-02-04 03:19] LABS: Blood Urea Nitrogen 9 mg/dl (7-17); Calcium 8.2 mg/dl (8.4-10.2); Carbon Dioxide 25 mmol/L (22-30); Chloride 112 mmol/L (98-107); Estimated Creatinine Clearance 108 ml/min; Glucose 91 mg/dl (70-99); Potassium 3.6 mmol/L (3.5-5.1); Sodium 138 mmol/L (135-145); eGFR > 60.00
--- NOTE | 2024-02-04 04:33 | PTCARENOTE ---
pt reassessed. OOB to bathroom with assist. at bedside overnight. AM labs sent. remains on 12L midflow, frequent cough. linens changed. call flynn within reach. care ongoing.
--- NOTE | 2024-02-04 05:21 | PTCARENOTE ---
pt c/o ongoing chest pain, cannot distinguish it from chest pain that was already occurring from CPR, c/o mild indigestion and fatigue as well. EKG done, ICU BACK WEDGER notified. no new orders.
--- NOTE | 2024-02-04 07:09 | W.PN.INTV ---
Today's Communication / Plan
Recommendations
Chest x-ray today
Incentive spirometry, airway clearance, ambulate
Continue antibiotics
Eventual ischemia evaluation, EP evaluation
Avoid QT prolonging agents
Consider downgrade to IMU. Pulmonary will continue to follow
Assessment
-
38-year-old female with history of endometriosis, fibroids with heavy menses over the past 9 months, ADHD on chronic Adderall therapy ran out few days ago, was found with agonal breathing at around 5:00 per . CPR was started, police arrived,
AED placed, shock advised and delivered with return of spontaneous circulation. Patient intubated with #6 ET tube, possibly traumatic. In ED, atrial fibrillation with rapid ventricular response, DC cardioversion x 2 per ACLS, and sinus rhythm.
Patient with spontaneous movement of upper and lower extremities. Cooling protocol not pursued. Hemoglobin noted to be 6.3, patient given 2 units of blood in the ED. Metabolic acidemia per ABG. Patient was given potassium for potassium level of
3.3. Initial lactate 4.3. We are asked to help from critical care standpoint
Status post out of hospital cardiac arrest, intubated 01/31/24
CPR for about 3 to 5 minutes
AED with shock with ROSC, rhythm consistent with VT
Extubated 02/01/2024
Atrial fibrillation with RVR, status post DC cardioversion in ED
Bilateral pulm infiltrates, staphylococcal pneumonia
No symptoms preadmission
Possible aspiration event
Mild QT prolongation
Metabolic acidemia, nongap
Anemia, likely secondary to acute blood loss/menorrhagia
Menses
Conditions present prior to admission
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
None in the last 2 years
Endometriosis/fibroids
Heavy bleeding for the past 9 months
History of mitral valve prolapse
Anxiety
Plan/recommendations
At this time, patient respiratory status remains tenuous but slowly improving
Chest exam improved, has been weaned down to mid flow.
Desaturates to 85% with cough spasms and taking oxygen off
Insomnia due to chest discomfort
Moving forward
Continue airway clearance, incentive spirometry
Out of bed to chair, ambulate as able
Wean oxygen as able
Minimize, avoid anxiolytic therapy if possible
Recommend sleeping with head of bed elevated
Check chest x-ray today
EKG with atrial fibrillation with rapid ventricular response. Mildly prolonged QT noted
EKG 02/03 normal
Echocardiogram with normal biventricular function, MVP with mild to moderate MR
Required DC cardioversion x 2 for atrial fibrillation/RVR in the ED
After reviewing rhythm strips from AED, patient had VT. Reviewed with cardiology
Patient on Adderall as outpatient, tox screen positive for amphetamines/marijuana. Patient takes CBD Gummies
According to , ran out of Adderall 3 to 4 days ago, prior to admission
Eventual EP evaluation, ischemia evaluation or
Cardiology following
Tracheal culture positive for Staphylococcus
MRSA negative
Remains on Zosyn therapy, transition to Ancef
Legionella, streptococcal antigen negative
ID following
COVID, flu negative
Anemia noted
Given bilateral infiltrates, would avoid transfusion for now. Will follow
Per family, hemoglobin baseline is around 7 for the last 9 months
Menses improving
Appreciate neurology evaluation
Likely TME from acute illness
Follow. Eventual MRI imaging
Mechanical and pharmacological prophylaxis
Ambulate
Follow blood sugars, sliding scale
Replete potassium, magnesium as indicated
DVT prophylaxis: Mechanical and pharmacological prophylaxis
GI prophylaxis: Continue pantoprazole given shock/cardiac arrest, will consider discontinuing
Reviewed at length with critical care nursing, respiratory care
Reviewed with primary service, cardiology
at bedside
Consider downgrade to IMU. Pulmonary will continue to follow
Subjective Dataa
Subjective Data
Date of Service:
Date of Service: February 04, 2024
Subjective:
Patient with slow improvement. Still with episodic desaturation to 85% with cough spasms. Improved from before. Has been weaned down to mid flow. at bedside. Denies abdominal pain, nausea. Tolerating p.o. Primary complaint is chest
discomfort with coughing
Objective Data
Data Reviewed
Vital Signs / I&O / Oxygen:
Vital Signs
Temp Pulse Resp BP Pulse Ox
98.6 F 84 29 132/87 97
02/04/24 02:59 02/04/24 07:00 02/04/24 07:00 02/04/24 07:00 02/04/24 07:00
Intake and Output
02/03/24 02/04/24 02/05/24
06:59 06:59 06:59
Intake Total 1630 / 1630 1650 / 1650
Output Total 1525 / 1525 1750 / 1750
Balance 105 / 105 -100 / -100
SaO2 [ASV] 97
SaO2 [A/C] 93
SaO2 97
Nasal Cannula flow liters per 10
minute
Physical Exam
General: Comfortable, Other (Upper extremity PICC line) and Other (Pallorous, less tachypneic)
HEENT: Normocephalic and Anicteric
Cardiovascular: S1-S2, Regular Rhythm (Tachycardic), Murmur (n), Rub (n), Peripheral Edema (n) and Calf Tenderness (n)
Respiratory: Wheeze (n), Crackles (n), Rhonchi (n), Accessory Resp Muscle Use (Yes with conversation, movement), Egophony (Left basilar, better air movement right base) and Other (Decreased at the base)
GI: Soft, Non Distended and Non Tender
Neurology: Awake, Alert, No Motor Deficits (Moves all extremities) and Other (Cannot recall events)
Skin: Cyanosis (n), Jaundice (n), Rash (n) and Other (Pallorous)
Labs/Micro/Reports
Lab Data
02/04/24 02:52
02/04/24 02:52
Microbiology
01/31/24 06:05 Blood/Venous Blood Culture - Preliminary
No Growth in 4 days- Final report to follow
01/31/24 06:02 Blood/Venous Blood Culture - Preliminary
Coagulase neg. staphylococcus
01/31/24 06:02 Blood/Venous Gram Stain - Preliminary
01/31/24 09:23 Tracheal Aspirate Respiratory Culture - Final
S aureus-Methicillin Sensitive
01/31/24 09:23 Tracheal Aspirate Gram Stain - Final
02/01/24 09:39 Nose Nasal Screen MRSA (PCR) - Final
MRSA not detected - performed by PCR methodology.
--- NOTE | 2024-02-04 07:27 | W.PN.CD ---
Today's Communication / Plan
-
- Cath in AM
- Cardiac MRI and ICD timing TBD
Impression / Plan
-
Impression: 38F with SCD.
History: MVP with mild to moderate MR and acute on chronic anemia. Night of admit took CBD gummies and diphenhydramine (ZzzQuil). heard agonal sounds, found no pulse, and started BLS. EMS arrived -> AED with shock delivered and ROSC. In ED
with AF/RVR and given DCCV as per ACLS. Now sedated/intubated and relatively stable in ICU.
Plan
SCD
- With respect to etiology:
- updated echocardiogram is benign
- EKG benign except for slightly prolonged QTc (466 ms)
- will need to consider cardiac MRI and genetic testing - timing TBD
- Treatment:
- EP consult reviewed and appreciated
- LHC in AM
- Secondary prevention ICD - timing TBD.
Anemia - stable/baseline
PNA on CT
MVP with mild to moderate MR - Stable
Critically ill 31 minutes
Subjective: CP with cough, dyspnea stable, palps with anxiety. Looks better
TTE Apr 10: Normal EF, MVP with mild MR
Physical Exam
Vital Signs/Labs
Vital Signs
Temp Pulse Resp BP Pulse Ox
37.0 C 84 29 132/87 97
02/04/24 02:59 02/04/24 07:00 02/04/24 07:00 02/04/24 07:00 02/04/24 07:00
02/03/24 02/04/24 02/05/24
06:59 06:59 06:59
Actual Weight 146 lb 2.664 oz
02/04/24 02:52
02/04/24 02:52
Magnesium 1.8 mg/dl (1.6-2.3) 02/03/24 03:57
Triglycerides 135 mg/dl (10-149) 02/03/24 03:57
TSH 6.72 uIU/ml (0.47-4.68) H 01/31/24 09:15
01/31/24
06:02
Nkr-Z-Mtzzhgzifyy Pept 176
LAB Results
02/02/24
04:30
Troponin I 0.036 H*
Physical Exam
Constitutional: No acute distress
EENT: Anicteric and Moist mucous membranes
Cardiovascular: Rhythm & rate is regular, Systolic murmur absent, Diastolic murmur absent and Rub absent
Respiratory: Respiratory effort normal
GI: Soft, Distention absent and Non tender
Neuro/Psych: Alert
Data Reviewed
-
Date of Service: February 04, 2024
EKG: Other (EKG unchanged & tele unremarkable)
--- NOTE | 2024-02-04 07:44 | W.PN.NEURO.1 ---
Addendum entered and electronically signed by Ji Adame MD 02/04/24 15:40:
CT head non contrast with no abnormalities.
No barriers or concerns about pursuing left heart catheterization, from neurologic standpoint is acceptable with no further specific therapies.
Original Note:
Today's Communication / Plan
-
-Check CT head non contrast today out of abundance of precaution before cardiac catheterization tomorrow
-Minimize sedating medications as able
-Reassured her expected to have some memory loss with illness such as hers, expect some degree of brain fogginess and cognitive issues but on the whole to improve
-MRI brain not felt essential at this time
Neuro Assessment/Plan
Assessment
38-year-old woman with past medical history of insomnia, menorrhagia and uterine fibroids, mitral valve prolapse who presented to hospital with likely cardiac arrest likely had ROSC after a few minutes, had atrial fibrillation with RVR with 2
cardioversions in the ER, intubated. She was extubated on 01/31. CT head noncontrast showed no abnormalities on admission. Patient showing some retrograde and anterograde amnesia but otherwise no focal or neurologic deficits and doing fairly well
on side cognitive testing considering recent events.
Probably multifactorial reasons for her cognitive and memory issues, short cardiac arrest, sedative medications, acute severe illness and aspiration pneumonia. Any degree of anoxic brain injury would be considered very mild, suspicion for this is
low. No focal neurologic deficits highly concerning for an acute ischemic stroke, did have brief episode of atrial fibrillation.
Subjective/Objective
Subjective Data
Date of Service: February 04, 2024
No acute events, no headache, has cough, anxious, discussed plans for testing today, left heart cath and ICD likely this coming week
Objective Data
Vital Signs
Temp Pulse Resp BP Pulse Ox
98.6 F 84 29 132/87 97
02/04/24 02:59 02/04/24 07:00 02/04/24 07:00 02/04/24 07:00 02/04/24 07:00
Lab Results
02/04/24 02:52
02/04/24 02:52
Sodium 138 mmol/L (135-145) 02/04/24 02:52
Potassium 3.6 mmol/L (3.5-5.1) 02/04/24 02:52
BUN 9 mg/dl (7-17) 02/04/24 02:52
Glucose 91 mg/dl (70-99) 02/04/24 02:52
Calcium 8.2 mg/dl (8.4-10.2) L 02/04/24 02:52
Phosphorus 3.4 mg/dl (2.5-4.5) 02/01/24 03:41
Wxp-A-Zoqcjkwtdhw Pept 176 pg/ml 01/31/24 06:02
Ur Buprenorphine Negative (Negative) 01/31/24 06:12
Patient Allergies
No Known Allergies Allergy (Verified 01/31/24 05:57)
Review of Systems
-
History Source: Patient
All other systems: Reviewed and negative
Constitutional: No Symptoms
EENT: No Symptoms Reported
Respiratory: No Symptoms
Cardiac: No Symptoms
Abdomen/GI: No Symptoms
Genitourinary: No Symptoms
Musculoskeletal: No Symptoms
Skin: No Symptoms
Neuro: See existing Neuro Note
Endocrine: No Symptoms
Hematologic / Lymphatic: No Symptoms
Allergy / Immunology: No Symptoms
Physical Exam
-
General: Comfortable and Wearing Oxygen
Eyes: No Ptosis
HEENT: Normocephalic
Respiratory: Rales and No Dyspnea
Cardiac: Regular Rhythm
GI: Soft and Non-tender
Skin: Warm, Dry and Other (Pale)
Extremities: No Edema
Psych: Anxious; Negative Agitated
Extended Neurological Exam
Attention Span & Concentration: Awake, Alert, Interactive, No Difficulty with 2 Step Request and Other (Holds conversation and obeys 1 and 2 step commands)
Memory: Reduced
Tremor: Hand Tremor Absent
Speech: Quality Unremarkable and Quantity Unremarkable; Negative Expressive Aphasia, Receptive Aphasia or Dysarthric
Cranial Nerve II: Left Eye: Pupillary Reactivity Unremarkable, Pupillary Size Unremarkable and Visual Hicks Intact
Cranial Nerve II: Right Eye: Pupillary Reactivity Unremarkable, Pupillary Size Unremarkable and Visual Hicks Intact
Cranial Nerves III, IV, : Extraocular Movement: Extraocular Movement Full in all Directions
Muscle Strength, Overall: Full Throughout
Pronator Drift: No Drift in Upper Extremities
Deep Tendon Reflexes: Trace Throughout
Data Reviewed
-
CT Head: Report Reviewed and Image Reviewed
Labs: Report Reviewed
[2024-02-04] MEDS: TYLENOL 650 MG PO ×2 (08:27→22:02)
[2024-02-04] MEDS: TESSALON PERLES 200 MG PO ×3 (08:27→22:02)
--- NOTE | 2024-02-04 09:01 | W.PN.HOSP.TC ---
Today's Communication/Plan
-
Plan for cardiac cath tomorrow.
Assessment / Plan
Assessment / Plan
Physical exam:
General: Acutely ill. Well Developed, Well Nourished and No Apparent Distress
HEENT: Normocephalic, Atraumatic and Moist Mucous Membranes
Respiratory: Decreased breath sounds. Clear to Auscultation; Negative Wheezes, Rales or Rhonchi
Cardiac: Regular Rhythm and S1/S2
GI: Soft, Nontender and Nondistended
Musculoskeletal: No Clubbing, No Cyanosis and No Edema
Neuro: Awake, Alert and Oriented, memory impairment/cognitive deficits.
Psych: Calm
A/P:
Cardiac Arrest-->
Probable VF or VT since shock delivered by AED--unknown cause but multiple etiologies proposed such as Adderal taper/CBD gummies/ZzQuil/anemia/hypokalemia/pna/r/o sarcoid/ r/o cad/ r/o long qt sdme/ or brugada/ etc--Time down is about 3-4 minutes. A
Fib noticed but unclear if really contributing.
Patient doing well post extubation.
Tylenol/Toradol as needed for MSK pain.
Plan for cardiac cath tomorrow.
Also plan for cardiac MRI, and AICD prior to d/c per cardiology.
Cont oxygen supplementation and PT and OT.
Discussed with family at bedside.
Significant anxiety/depression/ADHD--> psychiatry consulted. Started on Zoloft and Ativan as needed. Hold off on Adderall. Discussed with psychiatry. Discussed with cardiology about those meds.
Nausea---> avoid QTc prolonging medication and most of those medications are. Will use one-time dose of Tigan 200 mg IM for now and can repeat if needed.
Memory impairment/cognitive deficit --->unclear if related to injury due to cardiac arrest but seems to be less likely due to the short amount of time for ROSC. Appreciated neuro consult. Repeated CT of the head today unremarkable. No need for
MRI. Appreciated neurology follow-up.
VDRF--> extubated and doing well on HFO now down to Midflow Oxygen. Cont to taper as able.
Pneumonia--> Zosyn changed to IV Cefazolin. MSSA in sputum cx, Staph coag neg in blood cx ?contaminant, repeated blood cx no growth so far but continue to follow-up. ID on board.
Hypotension--Shock - likely cardiogenic although with pna, cannot rule out septic shock--Improved.
Menorrhagia/acute on chronic blood loss Anemia from heavy menses--Hgb = 6.3 on initial labs--s/p pRBC transfusion. Hb 7 MCV 66.6 today 02/03 and cont to monitor.
Non-Gapped Metabolic Acidosis/Hypokalemia from shock/arrest- - improved
DVT prophylaxis: Lovenox
Code Status: Full
Total time spent on today's encounter was 52 minutes which included time spent in counseling the patient/family regarding diagnosis and treatment plan as listed above, goals of care, and symptom management. Case was discussed with nursing staff,
specialists, and care coordinators/case management. All labs and imaging personally reviewed by me. Remainder the time spent in detailed review of previous records, lab data, imaging, and other medical provider documentation.
Anticipated Discharge: > 48 hours
Subjective/Interval History
-
Date of Service: February 04, 2024
Patient with more anxiety today. Still on supplemental oxygen.
Objective Data
-
Labs:
Laboratory Results
02/04/24
02:52
WBC 10.1
Hgb 7.0 L
Hct 22.9 L
Plt Count 228
Sodium 138
Potassium 3.6
Chloride 112 H
Carbon Dioxide 25
BUN 9
Creatinine 0.4 L
Glucose 91
Calcium 8.2 L
Vital Signs:
Vital Signs
Temp Pulse Resp BP Pulse Ox
98.3 F 84 29 132/87 97
02/04/24 07:54 02/04/24 07:00 02/04/24 07:00 02/04/24 07:00 02/04/24 07:00
I&O
02/03/24 02/04/24 02/05/24
06:59 06:59 06:59
Intake Total 1630 / 1630 1650 / 1650
Output Total 1525 / 1525 1750 / 1750
Balance 105 / 105 -100 / -100
Review of Systems
-
All other systems: Reviewed and negative
--- NOTE | 2024-02-04 09:46 | PTCARENOTE ---
Pt received this am. Assessment as documented. Pt c/o chest pain with movement and coughing. Cough medicine given with fair relief. Pt endorses feelings of anxiety. States she has racing thoughts and is constantly worried. Support offered to patient
and family.
--- NOTE | 2024-02-04 10:22 | W.PN.ID1 ---
Date of Service
Date of Service: February 04, 2024
Today's Communication
continue cefazolin
Assessment / Plan
MSSA Pneumonia
Positive blood culture; likely coag negative staph; confirmed contaminant
Out of hospital cardiac arrest
S/p VDRF
Anemia
Leukocytosis
Recommendations:
down to 12 L NC - markedly improved
leukocytosis resolved
Sputum culture with moderate MSSA, no gram negatives
Continue cefazolin
Repeat blood cultures x2 no growth to date
Will avoid QTc prolonging agents
Follow clinically
Chief Complaint
-: Leukocytosis, Pneumonia and Other (Zxo-gl-sbfdafttrbm code)
Subjective / Review of Systems
no further borderline elevated Ts
BP stable
down to 12 L NC - markedly improved
leukocytosis resolved
for cath in the AM, cardiac MRI and ICD
Vital Signs / Physical Exam
Vital Signs
Vital Signs
Temp Pulse Resp BP Pulse Ox
98.3 F 84 29 132/87 96
02/04/24 07:54 02/04/24 07:00 02/04/24 07:00 02/04/24 07:00 02/04/24 08:00
Physical Exam
Constitutional: No Acute Distress
Cardiovascular: Regular Rate
Pulmonary: Symmetric and Non Labored
Gastrointestinal: Non Distended
Skin: Dry; Negative Rash or Jaundice
Neurological: Awake and Alert
Psychological: Calm
Objective Data
Lab Data
Lab Results
02/04/24 02:52
02/04/24 02:52
Estimated Creat Clear 108 ml/min 02/04/24 02:52
Lactic Acid Cancelled 02/02/24 06:00
Total Bilirubin 0.9 mg/dl (0.2-1.3) 02/02/24 04:30
AST 30 U/L (14-36) 02/02/24 04:30
ALT 40 U/L (0-35) H 02/02/24 04:30
Alkaline Phosphatase 57 U/L (38-126) 02/02/24 04:30
Most recent labs reviewed.
Micro Results:
01/31/24 06:02 Blood Culture - Final
Blood/Venous Staphylococcus hominis
Gram Stain - Final
01/31/24 06:05 Blood Culture - Preliminary
Blood/Venous No Growth in 4 days- Final report to follow
02/03/24 15:44 Blood Culture - Pending
Blood/Venous
02/03/24 10:45 Blood Culture - Pending
Blood/Venous
01/31/24 09:23 Respiratory Culture - Final
Tracheal Aspirate S aureus-Methicillin Sensitive
Gram Stain - Final
02/01/24 09:39 Nasal Screen MRSA (PCR) - Final
Nose MRSA not detected - performed by PCR methodology.
01/31/24 09:13 Legionella Urinary Antigen - Final
Urine Negative for Legionella pneumophila Serogroup 1 antigen.
A negative result does not rule out the possiblity of
Legionella infection due to other serogroups or species of
Legionella. Clinical correlation is recommended.
Streptococcus pneumoniae Antigen (M - Final
Negative for Streptococcus pneumoniae antigen.
A negative result does not exclude infection with
Streptococcus pneumoniae. Clinical correlation is
recommended.
01/31/24 07:14 Influenza Types A & B (ALENA) - Final
Nasal Swab Negative for Influenza A & B, NAAT
Negative results must be combined with clinical observations
and patient history.
Nucleic Acid Amplification test (NAAT)performed on the
[employer] platform.
[2024-02-04] MEDS: ATIVAN 0.5 MG PO ×2 (11:10→22:03)
[2024-02-04] MEDS: MUCINEX 600 MG PO ×2 (11:10→22:03)
[2024-02-04] MEDS: ZOLOFT 50 MG PO (11:10)
[2024-02-04] MEDS: HYDROCORTISONE 1% CREAM 1 APPLIC TOPICAL (11:10)
--- NOTE | 2024-02-04 13:11 | CHAP ---
Heaven shared a welcoming smile and a bright spirit. She is keeping a positive attitude, trusting that her surgery will go well and she will make a good recovery. Emotional and spiritual support provided.
--- NOTE | 2024-02-04 13:12 | CS.PSYCHR ---
Consult Summary - Psychiatry
-
Psychiatry consult for anxiety. 38 yo female with long history of generalized anxiety and ADHD admitted 01/31/2024 s/p cardiac arrest at home overnight after taking CBD gummies and ZzzQuil. Patient admits to struggling for years with anxiety and fear
of and now this incident has severely exacerbated her condition. She states she tries doing breathing exercises but has not taken medications including SSRIs or benzos to help treat it. She does not have an outpatient psychiatrist or
therapist. She admits to depressive symptoms but denies suicidal ideations. She denies manic or psychotic history. She was diagnosed with ADHD in college and states she has done well on Adderall 20mg BID (prescribed by her PCP) for years.
We discussed option to start an SSRI like zoloft for long-term management of anxiety and depression as well as short term use of PRN Ativan while in the hospital for management of acute symptoms. We discussed the potential risks/side effects and
benefits of these medications.
UDS positive for amphetamines and marijuana
Past psych- see above; no previous psychiatric admissions. no suicide attempts
Social history- ; lives with and 2 sons ages 8 and 9. 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
D&A- denies misuse
Family history- father CAD, CVA
PMH- cardiac arrest, MVP, menorrhagia, nephrolithiasis, cervical ddd
A/P- 38 yo female with generalized anxiety disorder, unspecified depression and ADHD history admitted s/p cardiac arrest. Will start zoloft 50mg daily and ativan 0.5mg q6 hours PRN anxiety while in the hospital. Will not restart adderall in the
hospital. Discussed medication regimen with cardiology who is ok with the plan. Patient is agreeable with recommendation for outpatient mental health treatment including psychiatry and individual therapy once discharged. Psychiatry will follow up.
[2024-02-04] MEDS: TIGAN 200 MG IM (14:18)
[2024-02-04] MEDS: LOVENOX 40 MG SC (17:38)
--- NOTE | 2024-02-04 17:48 | PTCARENOTE ---
Patient given ativan as requested for anxiety this afternoon. Pt slept well for approx 3 hours. Pt states she currently feels less anxiety. Ambulated to and from waiting room past IMU. Tolerated well. Denies SOB. Family at bedside. Support offered
to patient.
--- NOTE | 2024-02-04 20:00 | PTCARENOTE ---
received patient, assessment as documented. oriented x3, family at bedside. SR on monitor. 8L midflow, diminished breath sounds, frequent dry hacking cough. + BS. OOB with assist x1 to bathroom. orders for NPO after midnight for cath lab radiological technologist tmrw. call
flynn within reach, care ongoing.
[2024-02-05] VITALS (24 sets, daily range): BP systolic 116–158; BP diastolic 71–94; BMI 25.4
--- NOTE | 2024-02-05 01:00 | PTCARENOTE ---
pt reassessed, on 10L midflow. SOB with ambulation to bathroom. sister at bedside overnight. call flynn within reach, care ongoing.
[2024-02-05] MEDS: ANCEF 10 IV ×3 (04:08→22:02)
[2024-02-05] MEDS: TORADOL 15 MG IV ×3 (04:08→16:37)
[2024-02-05 04:28] LABS: % Basophils 0.5 % (0-2); % Eosinophils 5.2 % (0-6); % Immature Granulocytes 1.2 % (0-0.5); % Lymphocytes 19.7 % (20.5-51.1); % Monocytes 10.4 % (1.7-9.3); Absolute Eosinophils 0.4 10^3/uL (0-0.7); Absolute Immature Granulocytes 0.1 10^3/uL (0-0.05); Absolute Lymphocytes 1.5 10^3/uL (1.2-3.4); Absolute Monocytes 0.8 10^3/uL (0.1-0.6); Absolute Neutrophils 4.9 10^3/uL (1.4-6.5); Hematocrit 24.7 % (37.0-47.0); Hemoglobin 7.3 g/dL (12.0-16.0); Mean Corp Hgb Conc. 29.6 g/dL (33.0-37.0); Mean Corpuscular Hgb 19.6 pg (27.0-31.0); Mean Corpuscular Volume 66.4 fL (81.0-99.0); Mean Platelet Volume 9.7 fL (7.4-10.4); Nucleated Red Blood Cells % 0.4 %; Platelet Count 287 10^3/uL (130-400); Red Blood Cell Count 3.72 10^6/uL (4.20-5.40); Red Cell Dist. Width 21.6 % (11.5-14.5); White Blood Cell Count 7.8 10^3/uL (4.8-10.8)
--- NOTE | 2024-02-05 04:30 | PTCARENOTE ---
pt reassessed. OOB with assist x1 to bathroom. CHG wipes, pt brushed teeth and washed face. AM labs sent. PRN toradol given for sternal pain. 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 care ongoing.
[2024-02-05 04:51] LABS: ALT (SGPT) 37 U/L (0-35); AST (SGOT) 51 U/L (14-36); Albumin 2.7 g/dl (3.5-5.0); Alkaline Phosphatase 83 U/L (38-126); Blood Urea Nitrogen 7 mg/dl (7-17); Calcium 8.4 mg/dl (8.4-10.2); Carbon Dioxide 25 mmol/L (22-30); Chloride 109 mmol/L (98-107); Estimated Creatinine Clearance 108 ml/min; Glucose 87 mg/dl (70-99); Magnesium 1.7 mg/dl (1.6-2.3); Potassium 3.7 mmol/L (3.5-5.1); Sodium 137 mmol/L (135-145); Total Bilirubin 0.5 mg/dl (0.2-1.3); Total Protein 5.2 g/dl (6.3-8.2); Troponin I < 0.012 ng/ml; eGFR > 60.00
[2024-02-05] MEDS: MAGNESIUM SULFATE 102 GRAMS IV (06:20)
[2024-02-05] MEDS: KCL 20 MEQ PO (06:20)
--- NOTE | 2024-02-05 06:50 | W.PN.HOSP.TC ---
Today's Communication/Plan
-
.
Assessment / Plan
Assessment / Plan
Physical exam:
General: Acutely ill. Well Developed, Well Nourished and No Apparent Distress
HEENT: Normocephalic, Atraumatic and Moist Mucous Membranes
Respiratory: Decreased breath sounds. Clear to Auscultation; Negative Wheezes, Rales or Rhonchi
Cardiac: Regular Rhythm and S1/S2
GI: Soft, Nontender and Nondistended
Musculoskeletal: No Clubbing, No Cyanosis and No Edema
Neuro: Awake, Alert and Oriented, memory impairment/cognitive deficits.
Psych: Calm
A/P:
Cardiac Arrest-->
Probable VF or VT since shock delivered by AED--unknown cause but multiple etiologies proposed such as Adderal taper/CBD gummies/ZzQuil/anemia/hypokalemia/pna/r/o sarcoid/ r/o cad/ r/o long qt sdme/ or brugada/ etc--Time down is about 3-4 minutes. A
Fib noticed but unclear if really contributing.
Patient doing well post extubation.
Tylenol/Toradol as needed for MSK pain.
Plan for cardiac cath today. NPO now
Also plan for cardiac MRI, and AICD per cardiology.
Cont oxygen supplementation and PT and OT.
Discussed with family at bedside.
Significant anxiety/depression/ADHD--> psychiatry consulted. Started on Zoloft and Ativan as needed. Hold off on Adderall. Discussed with psychiatry. Discussed with cardiology about those meds.
Nausea---> good appetite now, no abd pain.
Memory impairment/cognitive deficit --->unclear if related to injury due to cardiac arrest but seems to be less likely due to the short amount of time for ROSC. Appreciated neuro consult. Repeated CT of the head unremarkable. No need for MRI.
Appreciated neurology follow-up.
VDRF--> extubated and doing well on nasal O2, try to wean off.
Aspiration Pneumonia--> Zosyn changed to IV Cefazolin. MSSA in sputum cx, Staph coag neg in blood cx , contaminant, repeated blood cx no growth so far but continue to follow-up. ID on board.
Hypotension--Shock - cardiogenic although with pna, cannot rule out septic shock--Improved.
Menorrhagia/acute on chronic blood loss Anemia from heavy menses--Hgb = 6.3 on initial labs--s/p pRBC transfusion. Hb 7. ,c/w oral iron.
Non-Gapped Metabolic Acidosis/Hypokalemia from shock/arrest- - improved
DVT prophylaxis: Lovenox
Hyponatremia, resolved
Code Status: Full
Total time spent on today's encounter was 57 minutes which included time spent in counseling the patient/family regarding diagnosis and treatment plan as listed above, goals of care, and symptom management. Case was discussed with nursing staff,
specialists, and care coordinators/case management. All labs and imaging personally reviewed by me. Remainder the time spent in detailed review of previous records, lab data, imaging, and other medical provider documentation.
Anticipated Discharge: 24 - 48 hours
Subjective/Interval History
-
Date of Service: February 05, 2024
No chest pain
No sob
Night team: no events
Objective Data
-
Labs:
Laboratory Results
02/05/24
04:14
WBC 7.8
Hgb 7.3 L
Hct 24.7 L
Plt Count 287 D
Sodium 137
Potassium 3.7
Chloride 109 H
Carbon Dioxide 25
BUN 7
Creatinine 0.4 L
Glucose 87
Calcium 8.4
Total Bilirubin 0.5
AST 51 H
ALT 37 H
Alkaline Phosphatase 83
Vital Signs:
Vital Signs
Temp Pulse Resp BP Pulse Ox
98.6 F 83 21 137/86 97
02/05/24 04:40 02/05/24 06:00 02/05/24 06:00 02/05/24 06:00 02/05/24 06:00
I&O
02/03/24 02/04/24 02/05/24
06:59 06:59 06:59
Intake Total 1630 / 1630 1650 / 1650 1200 / 1200
Output Total 1525 / 1525 1750 / 1750 1200 / 1200
Balance 105 / 105 -100 / -100 0 / 0
--- NOTE | 2024-02-05 07:29 | W.PN.INTV ---
Today's Communication / Plan
Recommendations
O2
Atb
APAP IV and po
LHC
Assessment
-
38-year-old female with history of endometriosis, fibroids with heavy menses over the past 9 months, ADHD on chronic Adderall therapy ran out few days ago, was found with agonal breathing at around 5:00 per . CPR was started, police arrived,
AED placed, shock advised and delivered with return of spontaneous circulation. Patient intubated with #6 ET tube, possibly traumatic. In ED, atrial fibrillation with rapid ventricular response, DC cardioversion x 2 per ACLS, and sinus rhythm.
Patient with spontaneous movement of upper and lower extremities. Cooling protocol not pursued. Hemoglobin noted to be 6.3, patient given 2 units of blood in the ED. Metabolic acidemia per ABG. Patient was given potassium for potassium level of
3.3. Initial lactate 4.3. We are asked to help from critical care standpoint
Status post out of hospital cardiac arrest, intubated 01/31/24
CPR for about 3 to 5 minutes
AED with shock with ROSC, rhythm consistent with VT
Extubated 02/01/2024
Atrial fibrillation with RVR, status post DC cardioversion in ED
Bilateral pulm infiltrates, staphylococcal pneumonia
No symptoms preadmission
Possible aspiration event
Mild QT prolongation
Metabolic acidemia, nongap
Anemia, likely secondary to acute blood loss/menorrhagia
Menses
Conditions present prior to admission
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
None in the last 2 years
Endometriosis/fibroids
Heavy bleeding for the past 9 months
History of mitral valve prolapse
Anxiety
Plan/recommendations
Continue O2 protocol
Clinically improved resp guillory
CXR -14 with patchy infiltrates, RUE PICC
Weaning down O2
Continue airway clearance, incentive spirometry
Out of bed to chair, ambulate as able
Minimize, avoid anxiolytic therapy if possible
Recommend sleeping with head of bed elevated
Chest pain related to CPR
Start IV APAP and continue with oral APAP at high dose on ATC basis to decrease use of NSAIDs (ketorolac)
EKG with atrial fibrillation with rapid ventricular response. Mildly prolonged QT noted
EKG 02/03 normal
Echocardiogram with normal biventricular function, MVP with mild to moderate MR
Required DC cardioversion x 2 for atrial fibrillation/RVR in the ED
After reviewing rhythm strips from AED, patient had VT, reviewed with cardiology
Patient on Adderall as outpatient, tox screen positive for amphetamines/marijuana. Patient takes CBD gummies
According to , ran out of Adderall 3 to 4 days [employer]
EP consulted, rec LHC, cardiac MRI, dual chamber ICD PTD
LHC scheduled 02-04
[facility] following
Tracheal culture positive for MSSA
MRSA negative
Zosyn transitioned to cefazolin, to transition to keflex in several days (after AICD placement) as rec by ID
Legionella, streptococcal antigen negative
COVID, flu negative
Anemia noted
Given bilateral pulm infiltrates, would avoid transfusion for now. Will follow
Per family, hemoglobin baseline is around 7 for the last 9 months, currently at low 7s
Menses improving
Appreciate neurology evaluation
Likely TME from acute illness
Eventual MRI imaging
Mechanical and pharmacological prophylaxis
Follow blood sugars, sliding scale
Replete potassium, magnesium as indicated
DVT prophylaxis: Mechanical and pharmacological prophylaxis
GI prophylaxis: Continue pantoprazole given shock/cardiac arrest, will consider discontinuing
Downgrade to IMU/IVU depending on [facility] results
Pulmonary will continue to follow
No critical care time today
Subjective Dataa
Subjective Data
Date of Service:
Date of Service: February 05, 2024
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
Subjective:
No major events reported overnight
Remains hemodynamically stable
Continues on telemetry monitoring
For left heart cath today
In good spirits, visited by and sister
Still with anterior chest pain related to CPR
Review of Systems
General: Fever (n), Sweats (n), Chills and Satisfactory Appetite
HEENT: Epistaxis (n) and Dysphagia
Cardiopulmonary: Dyspnea (n), Cough, Wheezing, Chest Pain (Related to previous CPR) and Hemoptysis (n)
GI: Abdominal Pain (n), Nausea (n) and Vomiting
Neuro: Weakness
Genitourinary: Hematuria (n)
Objective Data
Data Reviewed
Vital Signs / I&O / Oxygen:
Vital Signs
Temp Pulse Resp BP Pulse Ox
98.6 F 83 21 137/86 97
02/05/24 04:40 02/05/24 06:00 02/05/24 06:00 02/05/24 06:00 02/05/24 06:00
Intake and Output
02/04/24 02/05/24 02/06/24
06:59 06:59 06:59
Intake Total 1650 / 1650 1200 / 1200
Output Total 1750 / 1750 1200 / 1200
Balance -100 / -100 0 / 0
SaO2 [ASV] 97
SaO2 [A/C] 93
SaO2 97
Nasal Cannula flow liters per 8
minute
Physical Exam
General: Comfortable, Other (Upper extremity PICC line) and Other (Pallorous, less tachypneic)
HEENT: Normocephalic, Anicteric and Moist Mucous Membranes
Cardiovascular: S1-S2, Regular Rhythm (Tachycardic), Murmur (n), Rub (n), Peripheral Edema (n) and Calf Tenderness (n)
Respiratory: Wheeze (n), Crackles (n), Rhonchi (n), Accessory Resp Muscle Use (Yes with conversation, movement), Egophony (Left basilar, better air movement right base) and Other (Decreased at the base)
GI: Soft, Non Distended and Non Tender
Neurology: Awake, AO x 3, No Motor Deficits (Moves all extremities) and Other (Cannot recall events)
Skin: Cyanosis (n), Jaundice (n), Rash (n) and Other (Pallorous)
Labs/Micro/Reports
Lab Data
02/05/24 04:14
02/05/24 04:14
Microbiology
01/31/24 06:05 Blood/Venous Blood Culture - Final
No Growth - Final Report
02/03/24 15:44 Blood/Venous Blood Culture - Preliminary
No Growth in 24 hours- Final report to follow
02/03/24 10:45 Blood/Venous Blood Culture - Preliminary
No Growth in 24 hours- Final report to follow
01/31/24 06:02 Blood/Venous Blood Culture - Final
Staphylococcus hominis
01/31/24 06:02 Blood/Venous Gram Stain - Final
01/31/24 09:23 Tracheal Aspirate Respiratory Culture - Final
S aureus-Methicillin Sensitive
01/31/24 09:23 Tracheal Aspirate Gram Stain - Final
--- NOTE | 2024-02-05 07:45 | PTCARENOTE ---
Assumed care of patient. Pt A&Ox3. Pleasant. Mildly anxious. LAST's. Ambulates in room w/ min assist x 1. S1 S2 reg w/ NSR on monitor. +PP. No edema. Rec'd on 8L MFNC...sats 98%. Lungs clear except RLL extremely diminished. Encouraged
coughing and deep breathing. IS done...1000mls. Acapella completed. Occasional NPC. Abdomen round...+BS. Voids in bathroom. Skin pale in color....multiple small and large reddened areas on chest and flanks from allergy to previous ECG patches
and defibrillator pads. Wound care consulted. Right DL PICC...flushed and WNL. VS documented. On regular diet...currently NPO for cath this am. Call flynn within reach. Will continue to monitor.
[2024-02-05] MEDS: HYDROCORTISONE 1% CREAM 1 APPLIC TOPICAL (08:35)
[2024-02-05] MEDS: MUCINEX 600 MG PO ×2 (08:36→22:02)
[2024-02-05] MEDS: ZOLOFT 50 MG PO (08:36)
--- NOTE | 2024-02-05 08:38 | W.PN.CD ---
Addendum entered and electronically signed by Hermilo Saunders DO 02/05/24 16:01:
Cardiac catheterization shows no CAD or arterial abberancy.
Plan for cardiac MRI and eventual ICD.
Original Note:
Today's Communication / Plan
-
Cardiac catheterization to assess coronary anatomy for atherosclerosis, aberrant coronary course.
Impression / Plan
-
Impression/Plan: 38F with MVP with mild/moderate MR, acute on chronic anemia due to menorrhagia (?) and depression/anxiety/ADHD admitted with SCD in the context of dextroamphetamine taper/CBD gummies and diphenhydramine (mildly prolonged QTc), also
found to have MSSA PNA.
#SCD
-With respect to etiology:
-Echocardiogram is benign.
-EKG benign except for slightly prolonged QTc (466 ms).
-Cardiac MRI and genetic testing - timing TBD.
-Treatment:
-EP consult reviewed and appreciated
-[facility] this morning.
-Secondary prevention ICD - timing TBD.
#Anemia
-Stable/baseline.
-Due to menorrhagia/uterine fibroids.
-The patient states she is being worked up for uterine ablation/hysterectomy.
#PNA
-Acute.
-Seen on CT. MSSA on sputum culture.
-ID input appreciated. Piperacilin-tazobactacam to cephazolin.
#MVP with mild to moderate MR
-Chronic, stable.
Subjective/Interval History:
O2 requirement down to 8 LNC.
She is feeling better.
DATA:
CTPE, 01/31/2024:
IMPRESSION:
Extensive bilateral pneumonia with confluent alveolar airspace disease throughout the posterior aspect of the upper and lower lobes bilaterally and interstitial and groundglass airspace disease throughout the right upper lobe and posterior and
apical segments of the left upper lobe.
TTE, 01/31/2024:
CONCLUSIONS
Normal left ventricular systolic function. Left ventricular ejection fraction
is 55%.
Bi-leaflet mitral valve prolapse. Mild mitral regurgitation.
No significant change since the prior study of 2020.
Physical Exam
Vital Signs/Labs
Vital Signs
Temp Pulse Resp BP Pulse Ox
36.9 C 83 21 137/86 97
02/05/24 07:37 02/05/24 06:00 02/05/24 06:00 02/05/24 06:00 02/05/24 06:00
02/03/24 02/04/24 02/05/24
11:59 11:59 11:59
Actual Weight 66.3 kg 67 kg
02/05/24 04:14
02/05/24 04:14
Magnesium 1.7 mg/dl (1.6-2.3) 02/05/24 04:14
Triglycerides 135 mg/dl (10-149) 02/03/24 03:57
TSH 6.72 uIU/ml (0.47-4.68) H 01/31/24 09:15
01/31/24
06:02
Yey-F-Jsctgqswlhi Pept 176
LAB Results
02/05/24
04:14
Troponin I < 0.012
Physical Exam
Constitutional: No acute distress and Comfortable
EENT: Anicteric and Moist mucous membranes
Cardiovascular: Rhythm & rate is regular, Pedal edema is absent, JVD pressure is normal, S1S2 is normal and Murmur/rub/gallop absent
Respiratory: Respiratory effort normal and Other (Decreased in the left lung field.)
GI: Soft, Distention absent, Flat, Non tender and Normal bowel sounds
Neuro/Psych: AO x 3
Data Reviewed
-
Date of Service: February 05, 2024
Medical Decision Making: Reviewed Test Results, Independent Historian Assessment and Test Interpretation
EKG: Tracing Personally Visualized and interpreted and Report Reviewed by me
Echo: Report Reviewed by me
X-Ray/CT/US/MRI/NUC/PET: Image Personally Visualized and interpreted and Report Reviewed by me
Labs: Labs Reviewed by me
--- NOTE | 2024-02-05 09:48 | WOUNDNOTE ---
[facility] RN note: Patient admitted with cardiac arrest.
See H&P for complete history.
PMH: mitral valve prolapse.
Wound Location and type/assessment: Patient developed rash from defibrillator pads and EKG lead pads d/t adhesive allergy.
Appetite: fair. NPO for procedure.
Pressure redistribution devices in place: [employer] air bed. She is mobile.
Will confirm skin care with hospitalist and discussed with FAVIO Tsang.
Care plan to be updated and will follow as needed.
--- NOTE | 2024-02-05 10:00 | PTCARENOTE ---
Seen by wound care. Orders rec'd.
--- NOTE | 2024-02-05 10:53 | W.PN.ID1 ---
Date of Service
Date of Service: February 05, 2024
Today's Communication
Continue abx.
Assessment / Plan
MSSA Pneumonia
Positive blood culture with Staph hominis : Contaminant
Out of hospital cardiac arrest
S/p VDRF
Anemia
Leukocytosis
Recommendations:
leukocytosis resolved
Sputum culture with moderate MSSA, no gram negatives
Continue cefazolin for today. Will transition to oral keflex in several days (after AICD placement)
Repeat blood cultures x2 no growth to date
Okay from Infectious Diseases standpoint for AICD placement.
Follow clinically
����������������������������������������������������������
Chief Complaint
-: Leukocytosis, Pneumonia and Other ([id number]-[id number] code)
Subjective / Review of Systems
Review of Systems: No Fever, No Chills, Cough, No Sputum Production and Chest Pain (sternal)
Vital Signs / Physical Exam
Vital Signs
Vital Signs
Temp Pulse Resp BP Pulse Ox
98.5 F 83 21 137/86 97
02/05/24 07:37 02/05/24 06:00 02/05/24 06:00 02/05/24 06:00 02/05/24 06:00
Physical Exam
Constitutional: No Acute Distress, Comfortable and Non-toxic
Eyes: Sclera Anicteric
Cardiovascular: S1/S2; Negative S3/S4
Pulmonary: Non Labored; Negative Wheezes or Rales
Gastrointestinal: Soft, Non Tender and Non Distended
Neurological: Awake and Alert
Psychological: Calm
Objective Data
Lab Data
Lab Results
02/05/24 04:14
02/05/24 04:14
Estimated Creat Clear 108 ml/min 02/05/24 04:14
Lactic Acid Cancelled 02/02/24 06:00
Total Bilirubin 0.5 mg/dl (0.2-1.3) 02/05/24 04:14
AST 51 U/L (14-36) H 02/05/24 04:14
ALT 37 U/L (0-35) H 02/05/24 04:14
Alkaline Phosphatase 83 U/L (38-126) 02/05/24 04:14
Most recent labs reviewed.
Micro Results:
02/03/24 10:45 Blood Culture - Preliminary
Blood/Venous No Growth in 48 hours- Final report to follow
01/31/24 06:05 Blood Culture - Final
Blood/Venous No Growth - Final Report
02/03/24 15:44 Blood Culture - Preliminary
Blood/Venous No Growth in 24 hours- Final report to follow
01/31/24 06:02 Blood Culture - Final
Blood/Venous Staphylococcus hominis
Gram Stain - Final
01/31/24 09:23 Respiratory Culture - Final
Tracheal Aspirate S aureus-Methicillin Sensitive
Gram Stain - Final
02/01/24 09:39 Nasal Screen MRSA (PCR) - Final
Nose MRSA not detected - performed by PCR methodology.
01/31/24 09:13 Legionella Urinary Antigen - Final
Urine Negative for Legionella pneumophila Serogroup 1 antigen.
A negative result does not rule out the possiblity of
Legionella infection due to other serogroups or species of
Legionella. Clinical correlation is recommended.
Streptococcus pneumoniae Antigen (M - Final
Negative for Streptococcus pneumoniae antigen.
A negative result does not exclude infection with
Streptococcus pneumoniae. Clinical correlation is
recommended.
01/31/24 07:14 Influenza Types A & B (ALENA) - Final
Nasal Swab Negative for Influenza A & B, NAAT
Negative results must be combined with clinical observations
and patient history.
Nucleic Acid Amplification test (NAAT)performed on the
[facility] platform.
[2024-02-05] MEDS: OFIRMEV 100 IV (11:14)
--- NOTE | 2024-02-05 12:00 | PTCARENOTE ---
No major changes in physical assessment since am. Remains on MFNC...4L...sats 94%. VS documented. Awaiting cardiac cath. Call flynn within reach.
--- NOTE | 2024-02-05 14:41 | ITS.CL.CATH ---
Ticket Scheduler - Catheterization
Cardiac Catheterization
Procedure Report:
CARDIAC CATHETERIZATION REPORT
Date of Procedure: 02/05/2024
Referring: Tomer Chávez M.D.
INDICATION: Sudden cardiac , rule out coronary artery disease.
PROCEDURE:
1. Left heart catheterization.
2. Coronary angiography.
ACCESS:
6 Filipino right radial artery.
CATHETERS:
1. 5 Filipino JR4.
2. 5 Filipino JL 3.5.
HEMODYNAMIC DATA
Weight (kg): 66.7
AO (s/d/x, mmHg): 120/83/100
LV (s/x mmHg): 124/12
LEFT VENTRICULOGRAPHY: Not performed.
CORONARY ANGIOGRAPHY
Dominance: Right.
Left Main: Normal size, bifurcating vessel. There is no coronary artery disease.
LAD: Normal size vessel giving rise to 2 diagonals. There is no coronary artery disease.
Ramus: Congenitally absent.
Circumflex: Normal size, nondominant vessel giving rise to 2 obtuse marginals and a small left posterolateral branch. There is no coronary artery disease.
RCA: Normal size, dominant vessel. There is no coronary artery disease.
INTERVENTION(S)
None.
Closure Device: Vascular band.
Radiation (mGy): 185.85
DAP (cm2.Gy): 11.8646
Fluoroscopy time (minutes): 1.9
Sedation time (minutes): 25
CONCLUSIONS
1. Right dominant circulation with no coronary artery disease.
2. Normal filling pressures (LVEDP = 12 mmHg at 66.7 kg).
3. No obvious coronary source for sudden cardiac arrest.
RECOMMENDATIONS:
1. Expectant management after cardiac catheterization via right radial approach.
2. Limited weight bearing on the right wrist for one week.
3. Secondary prevention with antiarrhythmic therapy.
4. Cardiac MRI.
5. Eventual ICD for secondary prevention.
Copy to: Tomer Chávez M.D., Roberta Connor M.D.
Hermilo Saunders DO, FACC, FACP
--- NOTE | 2024-02-05 14:45 | PTCARENOTE ---
Report rec'd from quality control lab tech @ 1420. Cath clean per report....for probable cardiac MRI @ 1000 02/05 w/ AICD this admission. Right radial accessed...TR band applied @ 1415 w/ 12mls of air. See intervention. updated. Tx to tele when bed
available.
[2024-02-05] MEDS: ARISTOCORT/TRIAMCINOLONE 0.1% CREAM 1 APPLIC TOPICAL ×2 (14:48→22:03)
--- NOTE | 2024-02-05 16:25 | CM ---
Patient for cardiac cath today.
Oxygen 4 liters.
Plan: continue to follow for d/c needs.
[2024-02-05] MEDS: TOPROL XL 12.5 MG PO (16:32)
[2024-02-05] MEDS: LOVENOX 40 MG SC (17:51)
--- NOTE | 2024-02-05 20:00 | PTCARENOTE ---
received patient, assessment as documented. oriented x3. c/o intermittent severe chest pain with coughing and sneezing. hospital [employer] made aware and ordered PRN meds. OOB with assist x1 to bathroom, completed 2 laps around unit. SR/ST on monitor. on
6L NC, diminished breath sounds noted. frequent hacking dry cough. + bowel sounds, reg diet. R radial cath access site dressing C/D/I, + pulse, mild ecchymosis. at bedside and staying overnight. call flynn within reach. offers no other
complaints at this time. tele level of care. NPO after midnight for cardiac MRI and possible AICD tomorrow. care ongoing.
[2024-02-05] MEDS: TESSALON PERLES 200 MG PO (22:02)
[2024-02-05] MEDS: ATIVAN 0.5 MG PO (22:02)
[2024-02-05] MEDS: ULTRAM 50 MG PO (22:03)
[2024-02-05] MEDS: TYLENOL 1000 MG PO (22:03)
[2024-02-06] VITALS (7 sets, daily range): BP systolic 111–137; BP diastolic 67–95; BMI 25.3
[2024-02-06] MEDS: ANCEF 10 IV ×3 (05:19→20:04)
[2024-02-06] MEDS: TORADOL 15 MG IV ×3 (05:19→20:03)
[2024-02-06 05:43] LABS: Hemoglobin 7.5 g/dL (12.0-16.0); Mean Corpuscular Hgb 20.1 pg (27.0-31.0); Mean Corpuscular Volume 66.8 fL (81.0-99.0); Mean Platelet Volume 9.7 fL (7.4-10.4); Platelet Count 303 10^3/uL (130-400); Red Blood Cell Count 3.74 10^6/uL (4.20-5.40); Red Cell Dist. Width 22.1 % (11.5-14.5); White Blood Cell Count 6.9 10^3/uL (4.8-10.8)
[2024-02-06 06:03] LABS: Blood Urea Nitrogen 10 mg/dl (7-17); Calcium 8.1 mg/dl (8.4-10.2); Carbon Dioxide 24 mmol/L (22-30); Chloride 109 mmol/L (98-107); Estimated Creatinine Clearance 108 ml/min; Glucose 86 mg/dl (70-99); Potassium 3.8 mmol/L (3.5-5.1); Sodium 135 mmol/L (135-145); eGFR > 60.00
--- NOTE | 2024-02-06 06:33 | W.PN.HOSP.TC ---
Today's Communication/Plan
-
.
Assessment / Plan
Assessment / Plan
Physical exam:
General: Acutely ill. Well Developed, Well Nourished and No Apparent Distress
HEENT: Normocephalic, Atraumatic and Moist Mucous Membranes
Respiratory: Decreased breath sounds. Clear to Auscultation; Negative Wheezes, Rales or Rhonchi
Cardiac: Regular Rhythm and S1/S2
GI: Soft, Nontender and Nondistended
Musculoskeletal: No Clubbing, No Cyanosis and No Edema
Neuro: Awake, Alert and Oriented, memory impairment/cognitive deficits.
Psych: Calm
A/P:
Cardiac Arrest-->
Probable VF or VT since shock delivered by AED--unknown cause but multiple etiologies proposed such as Adderal taper/CBD gummies/ZzQuil/anemia/hypokalemia/pna/r/o sarcoid/ r/o cad/ r/o long qt sdme/ or brugada/ etc--Time down is about 3-4 minutes. A
Fib noticed but unclear if really contributing.
Patient doing well post extubation.
Tylenol/Tramadol as needed for MSK pain.
Non obstructive coronaries on [facility] on 02/04
Also plan for cardiac MRI, and AICD per cardiology.
Cont oxygen supplementation and PT and OT.
Discussed with family at bedside.
Significant anxiety/depression/ADHD--> psychiatry consulted. Started on Zoloft and Ativan as needed. Hold off on Adderall. Discussed with psychiatry. Discussed with cardiology about those meds.
Nausea---> good appetite now, no abd pain.
Memory impairment/cognitive deficit --->unclear if related to injury due to cardiac arrest but seems to be less likely due to the short amount of time for ROSC. Appreciated neuro consult. Repeated CT of the head unremarkable. No need for MRI.
Appreciated neurology follow-up.
VDRF--> extubated and doing well on nasal O2, try to wean off.
Aspiration Pneumonia--> Zosyn changed to IV Cefazolin. MSSA in sputum cx, Staph coag neg in blood cx , contaminant, repeated blood cx no growth so far but continue to follow-up. ID on board.
Hypotension--Shock - cardiogenic although with pna, cannot rule out septic shock--Improved.
Menorrhagia/acute on chronic blood loss Anemia from heavy menses--Hgb = 6.3 on initial labs--s/p pRBC transfusion. Hb 7. ,c/w oral iron.
Non-Gapped Metabolic Acidosis/Hypokalemia from shock/arrest- -resolved
DVT prophylaxis: Lovenox
Hyponatremia, resolved
Code Status: Full
Total time spent on today's encounter was 57 minutes which included time spent in counseling the patient/family regarding diagnosis and treatment plan as listed above, goals of care, and symptom management. Case was discussed with nursing staff,
specialists, and care coordinators/case management. All labs and imaging personally reviewed by me. Remainder the time spent in detailed review of previous records, lab data, imaging, and other medical provider documentation.
Anticipated Discharge: > 48 hours
Subjective/Interval History
-
Date of Service: February 06, 2024
No chest pain
No sob
Objective Data
-
Labs:
Laboratory Results
02/06/24
05:26
WBC 6.9
Hgb 7.5 L
Hct 25.0 L
Plt Count 303
Sodium 135
Potassium 3.8
Chloride 109 H
Carbon Dioxide 24
BUN 10
Creatinine 0.4 L
Glucose 86
Calcium 8.1 L
Vital Signs:
Vital Signs
Temp Pulse Resp BP Pulse Ox
98.6 F 78 22 116/81 95
02/06/24 05:32 02/06/24 06:00 02/06/24 06:00 02/06/24 04:00 02/06/24 06:00
I&O
02/04/24 02/05/24 02/06/24
06:59 06:59 06:59
Intake Total 1650 / 1650 1200 / 1200 1939
Output Total 1750 / 1750 1200 / 1200
Balance -100 / -100 0 / 0 1939
--- NOTE | 2024-02-06 06:46 | PTCARENOTE ---
CHG wipes this morning, pt brushed teeth and face, PRN toradol given for sternal pain. care ongoing.
--- NOTE | 2024-02-06 08:00 | PTCARENOTE ---
Assumed care of patient. Pt rec'd A&Ox3. Pleasant...mildly anxious. NPO x meds since MN for cardiac MRI @ 1000 and possible AICD later today. Remains on 6L MFNC....sats 98%. Right base diminished. Dry NPC noted. Scattered chest/abdominal rash
secondary to adhesive allergy (ie defib pads/ecg patches)....scheduled cream applied....rash improved...less raised and more pink than red. VS documented. Call flynn within reach. Will continue to monitor.
--- NOTE | 2024-02-06 08:07 | W.PN.INTV ---
Today's Communication / Plan
Recommendations
Atb
O2
Cardiac MRI
Assessment
-
38-year-old female with history of endometriosis, fibroids with heavy menses over the past 9 months, ADHD on chronic Adderall therapy ran out few days ago, was found with agonal breathing at around 5:00 per . CPR was started, police arrived,
AED placed, shock advised and delivered with return of spontaneous circulation. Patient intubated with #6 ET tube, possibly traumatic. In ED, atrial fibrillation with rapid ventricular response, DC cardioversion x 2 per ACLS, and sinus rhythm.
Patient with spontaneous movement of upper and lower extremities. Cooling protocol not pursued. Hemoglobin noted to be 6.3, patient given 2 units of blood in the ED. Metabolic acidemia per ABG. Patient was given potassium for potassium level of
3.3. Initial lactate 4.3. We are asked to help from critical care standpoint
Status post out of hospital cardiac arrest, intubated 01/31/24
CPR for about 3 to 5 minutes
AED with shock with ROSC, rhythm consistent with VT
Extubated 02/01/2024
Atrial fibrillation with RVR, status post DC cardioversion in ED
Bilateral pulm infiltrates, staphylococcal pneumonia
No symptoms preadmission
Possible aspiration event
Mild QT prolongation
Metabolic acidemia, nongap
Anemia, likely secondary to acute blood loss/menorrhagia
Menses
Conditions present prior to admission
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
None in the last 2 years
Endometriosis/fibroids
Heavy bleeding for the past 9 months
History of mitral valve prolapse
Anxiety
Plan/recommendations
Continue O2 protocol
Clinically improved resp guillory
CXR -14 with patchy infiltrates, RUE PICC
Weaning down O2
Continue airway clearance, incentive spirometry
Out of bed to chair, ambulate as able
Chest pain related to CPR
Start IV APAP and continue with oral APAP at high dose on ATC basis to decrease use of NSAIDs (ketorolac)
EKG with atrial fibrillation with rapid ventricular response. Mildly prolonged QT noted
EKG 02/03 normal
Echocardiogram with normal biventricular function, MVP with mild to moderate MR
Required DC cardioversion x 2 for atrial fibrillation/RVR in the ED
After reviewing rhythm strips from AED, patient had VT, reviewed with cardiology
Patient on Adderall as outpatient, tox screen positive for amphetamines/marijuana. Patient takes CBD gummies
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
EP consulted, rec LHC, cardiac MRI, dual chamber ICD PTD
LHC 02-04 with no CAD
[facility] following
Cardiac MRI 02-05, for ICD depending on results
Tracheal culture positive for MSSA
MRSA negative
Zosyn transitioned to cefazolin, to transition to keflex in several days (after AICD placement) as rec by ID
Legionella, streptococcal antigen negative
COVID, flu negative
Anemia noted
Given bilateral pulm infiltrates, would avoid transfusion for now. Will follow
Per family, hemoglobin baseline is around 7 for the last 9 months, currently at low 7s
Menses improving
Appreciate neurology evaluation
Likely TME from acute illness, MS back to normal
Mechanical and pharmacological prophylaxis
Follow blood sugars, sliding scale
Replete potassium, magnesium as indicated
DVT prophylaxis: Mechanical and pharmacological prophylaxis
GI prophylaxis: Continue pantoprazole given shock/cardiac arrest, will consider discontinuing
No critical care time today, currently on telemetry status
Can transfer to IVU, pulm to follow
Subjective Dataa
Subjective Data
Date of Service:
Date of Service: February 06, 2024
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
Subjective:
No major events reported overnight
Left heart cath with no significant findings for coronary artery disease
For cardiac MRI today
Remains hemodynamically stable
Oxygen requirement declining slowly, appears in no respiratory stress, conversant, pleasant
Review of Systems
General: Fever (n), Sweats (n), Chills (n) and Satisfactory Appetite
HEENT: Epistaxis (n) and Dysphagia
Cardiopulmonary: Dyspnea (n at rest), Cough (trace), Sputum Production (n), Wheezing (n), Edema (n) and Hemoptysis (n)
GI: Abdominal Pain (n), Nausea (n) and Vomiting (n)
Neuro: Weakness (n)
Objective Data
Data Reviewed
Vital Signs / I&O / Oxygen:
Vital Signs
Temp Pulse Resp BP Pulse Ox
98.1 F 78 22 116/81 95
02/06/24 07:57 02/06/24 06:00 02/06/24 06:00 02/06/24 04:00 02/06/24 06:00
Intake and Output
02/05/24 02/06/24 02/07/24
06:59 06:59 06:59
Intake Total 1200 / 1200 1939
Output Total 1200 / 1200
Balance 0 / 0 1939
SaO2 [ASV] 97
SaO2 [A/C] 93
SaO2 95
Nasal Cannula flow liters per 6
minute
Physical Exam
General: Comfortable, Other (Upper extremity PICC line) and Other (Pallorous, less tachypneic)
HEENT: Normocephalic, Anicteric and Moist Mucous Membranes
Cardiovascular: S1-S2, Regular Rhythm (Tachycardic), Murmur (n), Rub (n), Peripheral Edema (n) and Calf Tenderness (n)
Respiratory: Wheeze (n), Crackles (n), Rhonchi (n), Accessory Resp Muscle Use (Yes with conversation, movement), Egophony (Left basilar, better air movement right base) and Other (Decreased at the base)
GI: Soft, Non Distended and Non Tender
Neurology: Awake, AO x 3, No Motor Deficits (Moves all extremities) and Other (Cannot recall events)
Skin: Cyanosis (n), Jaundice (n), Rash (n) and Other (Pallorous)
Labs/Micro/Reports
Lab Data
02/06/24 05:26
02/06/24 05:26
Microbiology
02/03/24 15:44 Blood/Venous Blood Culture - Preliminary
No Growth in 48 hours- Final report to follow
02/03/24 10:45 Blood/Venous Blood Culture - Preliminary
No Growth in 48 hours- Final report to follow
01/31/24 06:05 Blood/Venous Blood Culture - Final
No Growth - Final Report
01/31/24 06:02 Blood/Venous Blood Culture - Final
Staphylococcus hominis
01/31/24 06:02 Blood/Venous Gram Stain - Final
[2024-02-06] MEDS: ARISTOCORT/TRIAMCINOLONE 0.1% CREAM 1 APPLIC TOPICAL ×2 (08:24→20:58)
[2024-02-06] MEDS: FEOSOL 325 MG PO (08:25)
[2024-02-06] MEDS: ZOLOFT 50 MG PO (08:25)
[2024-02-06] MEDS: TOPROL XL 12.5 MG PO (08:25)
[2024-02-06] MEDS: MUCINEX 600 MG PO ×2 (08:25→20:04)
[2024-02-06] MEDS: TYLENOL 1000 MG PO (09:47)
--- NOTE | 2024-02-06 09:55 | PTCARENOTE ---
Pt sent for cardiac MRI.
--- NOTE | 2024-02-06 11:39 | CM ---
Patient out of room in ICU, possible transfer to IVU, per nursing. Per chart review patient plan is home with family watch for VN needs. CM will continue to follow for discharge planning needs.
Plan; home with VN vs outpatient follow up
--- NOTE | 2024-02-06 13:25 | PTCARENOTE ---
Report called to EP lab for tentative AICD today...will update pt and pt's .
--- NOTE | 2024-02-06 14:56 | W.PN.UPDATE ---
Update Note
Progress Note Update
Pt seen with present. Reviewed pt's history of anxiety, onset right after getting , when traveling, and felt urinary urgency. Pt had multiple medical eval's/doctors, eventually concluded that bladder sx/urgency are related to
anxiety. Pt has managed with occasional prn Xanax 0.25 mg only, Rx by PCP. She reports more recently 2 to 3 days of feeling depressed and anxious, possibly pre-menstrually. Pt now taking Sertraline 50 mg daily here, today is day #3, for
increased anxiety/fear of , after having a suddent cardiac arrest. Pt denies any noticeable side effects thus far. Pt is alert, calm, answering questions in detail, with no sign of distress. At end of interview, pt stated she is having
cardiac procedure later today- having indwelling defibrillator placed, and is much calmer than she would usually be under the circumstances.
Imp: Unspec Anxiety d/o, R/o PADMINI; adjusting well thus far to trial of Sertraline 50 mg QD
Hx of ADHD, Rx'd Adderall at home- held here at
Rec: continue on Sertraline 50 mg QD, allow time for therapeutic effect
continue Ativan prn- pt and given education about risks/appropriate prn use of benzo
Outpatient follow-up when medically cleared, with PCP for med mgt, and outpatient therapy
will follow
--- NOTE | 2024-02-06 15:00 | PTCARENOTE ---
Pt sent to EP lab.
--- NOTE | 2024-02-06 16:45 | PTCARENOTE ---
Pt rec'd back from EP lab. A&Ox3 but drowsy. Left arm in immobilizer...left upper chest w/ intact aquacell dressing. VS obtained. Call flynn within reach.
--- NOTE | 2024-02-06 16:46 | W.PN.CD ---
Today's Communication / Plan
-
- Dual Chamber ICD today
- Cardiac MRI today
- [facility]
- Procainamide challenge test in 2-3 months
- Device clinic enrollment.
Impression / Plan
-
Impression/Plan: 38F with MVP with mild/moderate MR, acute on chronic anemia due to menorrhagia (?) and depression/anxiety/ADHD admitted with SCD in the context of dextroamphetamine taper/CBD gummies and diphenhydramine (mildly prolonged QTc), also
found to have MSSA PNA.
#SCD
-With respect to etiology:
-Echocardiogram is benign.
-EKG benign except for slightly prolonged QTc (466 ms).
-Cardiac MRI planned for today
-genetic testing - as outpatient
-[facility] - normal cors and no CAD.
-Secondary prevention ICD - planned for today after MRI.
- Discussed again with patient, her at [facility] and sister on the phone. They want a subpectoral ICD to minimize the appearance.
#Anemia
-Stable/baseline.
-Due to menorrhagia/uterine fibroids.
-The patient states she is being worked up for uterine ablation/hysterectomy.
#PNA
-Acute.
-Seen on CT. MSSA on sputum culture.
-ID input appreciated. Piperacilin-tazobactacam to cephazolin.
- WBC are normalized. ICD today.
#MVP with mild to moderate MR
-Chronic, stable.
Subjective/Interval History:
O2 requirement down to 6 LNC.
She is feeling better.
DATA:
CTPE, 01/31/2024:
IMPRESSION:
Extensive bilateral pneumonia with confluent alveolar airspace disease throughout the posterior aspect of the upper and lower lobes bilaterally and interstitial and groundglass airspace disease throughout the right upper lobe and posterior and
apical segments of the left upper lobe.
TTE, 01/31/2024:
CONCLUSIONS
Normal left ventricular systolic function. Left ventricular ejection fraction
is 55%.
Bi-leaflet mitral valve prolapse. Mild mitral regurgitation.
No significant change since the prior study of 2020.
Physical Exam
Vital Signs/Labs
Vital Signs
Temp Pulse Resp BP Pulse Ox
97.9 F 75 22 130/80 98
02/06/24 12:05 02/06/24 14:00 02/06/24 09:00 02/06/24 11:51 02/06/24 09:00
02/05/24 02/06/24 02/07/24
06:59 06:59 06:59
Actual Weight 67 kg 66.8 kg
02/06/24 05:26
02/06/24 05:26
Magnesium 1.7 mg/dl (1.6-2.3) 02/05/24 04:14
Triglycerides 135 mg/dl (10-149) 02/03/24 03:57
TSH 6.72 uIU/ml (0.47-4.68) H 01/31/24 09:15
01/31/24
06:02
Fkx-O-Kcmplsepkot Pept 176
LAB Results
02/05/24
04:14
Troponin I < 0.012
Physical Exam
Constitutional: No acute distress and Comfortable
EENT: Anicteric and Moist mucous membranes
Cardiovascular: Rhythm & rate is regular, Pedal edema is absent and JVD pressure is normal
Respiratory: Respiratory effort normal, Lungs clear to auscul. and Wheeze Absent
GI: Soft, Non tender and Normal bowel sounds
Neuro/Psych: Alert, Oriented and AO x 3
Other: Cardiac Device Site
Data Reviewed
-
Date of Service: February 06, 2024
Medical Decision Making: Reviewed Test Results, Independent Historian Assessment and Test Interpretation
EKG: Tracing Personally Visualized and interpreted
Echo: Tracing Personally Visualized and interpreted
X-Ray/CT/US/MRI/NUC/PET: Image Personally Visualized and interpreted
Labs: Labs Reviewed by me
Old Records: Reviewed
--- NOTE | 2024-02-06 17:02 | ITS.CL.ICD ---
Quotation Clerk - ICD
Implantable Cardioverter Defibrillator
Procedure Report:
Dual Chamber Implantable Cardioverter Defibrillator Placement:
Ms. Gomes is a very pleasant 38 years old woman with out of hospital cardiac arrest with ventricular tachycardia and noted to have atrial fibrillation post arrest along with borderline QT prolongation s/p cardiac coronary angiography without
any abnormality or atherosclerotic disease is recommended an ICD placement for secondary prevention. He needs atrial lead placement for identification of his ventricular vs supra ventricular arrhythmia and to avoid inappropriate shock.
Indications: Cardiac arrest with ventricular tachycardia � secondary prevention
Date of the Procedure: 02/06/2024
Pre-Operative Diagnosis: Cardiac arrest with ventricular tachycardia
Post-Operative Diagnosis: Cardiac arrest with ventricular tachycardia
Procedure Performed: DUAL CHAMBER IMPLANTABLE CARDIOVERTER DEFIBRILLATOR IMPLANTATION
Performing physician:
Carmen Craig MD
Anesthesia:
See anesthesia records
Detailed Description of the Procedure:
The patient was identified using hospital identification and informed consent obtained for the procedure. The risks were explained including, but not limited to: Bleeding, infection, arrhythmia, stroke, vascular/cardiac/lung puncture, surgery,
pacemaker dependency/device malfunction. All questions were answered.
The patient was brought to the electrophysiology laboratory in stable condition in fasting state. Continuous electrocardiographic and hemodynamic monitoring was initiated. The initial rhythm was normal sinus rhythm.
The procedure site was meticulously prepared with surgical scrub and allowed to dry with no pooling. Sterile draping was applied to cover the procedure site. The image intensifier was draped with sterile bag and positioned over the patient.
The left infra-clavicular region was prepped and draped in the usual sterile fashion. Local anesthesia was administered subcutaneously using 1% lidocaine / Bupivacaine. Venogram was done and axillary vein was accessed and vascular sheaths were
introduced for lead access. These were advanced into the right ventricle and the right atrium. The right ventricular lead was secured in position with an active fixation technique at the apical septal location. The RA lead was attached in the right
atrial appendage with active fixation. There was excellent sensing, pacing, and impedance from the leads, with no diaphragmatic stimulation at 10 V output.�Bovie cautery, antibiotics, and fluoroscopy were used.
The sheath was withdrawn, and the thresholds remained acceptable. The lead was secured in position at the venous entry site with 0-silk.
As per wishes from the patient, a sub pectoralis muscle pocket was fashioned contiguous to the incision in the delto-pectoral groove.
The electrode terminals were connected to the pulse generator, which was placed into the pocket. The wound was irrigated thoroughly with antibiotic solution and closed in 3 layers using 2-0 VLoc sutures followed by a layers of 4-0 monocry sutures.
Steri-Strips and a bandage were applied externally.�
Procedure End:
The procedure was tolerated well. A bandage was applied to the incision area.
Estimated Blood loss:
5 cc
Fluoro time:
0.9min / 0.32Ouix8
Specimens Removed:
No cultures and no specimens were obtained. No intraoperative pathology was identified.
Urine output:
None
Packs / Drains/ Tubes:
None
Instrument / Sponge Count Correct:
Yes
Complications of the Procedure:
None
Condition of Patient at Time of Transfer:
Hemodynamically stable with no neurological or vascular compromise.
Device information:�
Generator: [employer]; Model: [id number]; Serial # [id number]
Atrial Lead: [employer]; Model: 5076-45; Serial # [id number]
Measured data in the right atrium was sensing of 1.6 mV, impedance of 380 ohms and threshold of 1.25 V at 0.4ms.�
�
RV Lead: [employer]; Model: 6935M-55; Serial # [id number]
Measured data in the RV lead was sensing of 6 mV, impedance of 513ohms and threshold of 0.5 V at 0.4ms�
PROGRAMMING PARAMETERS:�
Juwan parameter settings were AAI <=>DDD 50-130 bpm. �
����������� Mode switch: On
����������� Paced AV delay: 180 ms
����������� Sensed AV delay: 150 ms
����������� Rate Adaptive A-V Interval: Off
Output parameters:
����������������������� Amplitude (V)������������� Pulse Width (ms)������� Sensitivity (mV)
����������� RA: ����� 3.5 ����������������� 0.4������������������ 0.45
����������� RV:������ 3.5������������������ 0.4������������������ 0.3
Tachy parameter settings:
����������� SVT discrimination: On
����������� AF/AFl: On
����������� SVT limit: 260 msec
����������� VT zone:
����������������������� Slow VT: 150- 188 bpm --> Monitor
����������������������� VT: 188 -207 bpm --> ATP then shock
����������������������� VF: > 207 bpm --> ATP while charging � Shock x 6
Summary:
Successful implantation of MRI compatible dual chamber [employer] implantable Cardioverter Defibrillator.�
Results/Recommendations:
-Please follow up CXR�
1. Please provide patient with adequate pain control�
Instructions to be given to patient:�
- Please follow up with [facility] at [address] [place] [address] ([phone]) to get your wound checked within 14 days of your discharge.
- Do not soak incision site until after it is evaluated at cardiology clinic. OK to showers followed by dab dry the area. No baths or swimming until then. Sponge baths are OK.�
- Allow 'steri strips' to fall off on their own�
- Do not lift left elbow above shoulder, particularly with sudden jerking movements, for 1 month�
- Do not lift anything weighing more than 5 pounds with the left arm for 1 month�
- If you notice any fevers, shortness of breath, lightheadedness, chest pain, or worsening swelling in the wound site, please contact the arrhythmia clinic, contact your wafer line worker, or present to the hospital for evaluation.�
Carmen Craig MD
Electrophysiology
[2024-02-06] MEDS: LOVENOX 40 MG SC (17:37)
[2024-02-06] MEDS: MAGNESIUM OXIDE 500 MG PO (20:04)
[2024-02-06] MEDS: DILAUDID 0.5 MG IV (21:10)
--- NOTE | 2024-02-06 21:46 | PTCARENOTE ---
pt c/o 08/01 pain at the AICD insertion site. given Toradol with no relief. pt states that the pain is so bad now that its starting to give her a migraine, Dilaudid given, relief within 10mins of administration. pt transferred to IVU on the monitor
without incident. family at bedside for moral support. pt in good spirits.
[2024-02-06] MEDS: ULTRAM 50 MG PO (22:46)
[2024-02-06] MEDS: ATIVAN 0.5 MG PO (23:22)
[2024-02-07] VITALS (8 sets, daily range): BP systolic 112–179; BP diastolic 70–97; PULSE 85; O2SAT 92
--- NOTE | 2024-02-07 00:41 | PTCARENOTE ---
Pt transferred from ICU to IVU at approximately 2140, HR SR w/ occasional A-pacing. R radial cath site dressing CDI, soft, no hematoma. Pt c/o pain 05/01 at AICD insertion site, PRN 50mg Ultram PO administered, effective. Pt washed, gown changed,
linens changed. Pt requested PRN ativan to sleep, 0.5mg PO ativan administered. Pt denies any CP outside of incision site, SOB, or lightheadedness/dizziness at this time. Informed to notify RN if any changes, call flynn within reach.
Pt's sister staying overnight in room w/ pt.
--- NOTE | 2024-02-07 05:08 | DOWNTIME ---
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 Downtime documentation of patient's care, including medication administrations, has been reconciled in the electronic record per guidelines. Refer to the
patient's paper chart under the miscellaneous tab to see printed paper medication records and downtime forms.
[2024-02-07] MEDS: ANCEF 10 IV ×3 (05:29→20:22)
[2024-02-07 05:53] LABS: Hematocrit 25.9 % (37.0-47.0); Hemoglobin 7.6 g/dL (12.0-16.0); Mean Corp Hgb Conc. 29.3 g/dL (33.0-37.0); Mean Corpuscular Hgb 19.8 pg (27.0-31.0); Mean Corpuscular Volume 67.4 fL (81.0-99.0); Mean Platelet Volume 9.6 fL (7.4-10.4); Platelet Count 347 10^3/uL (130-400); Red Blood Cell Count 3.84 10^6/uL (4.20-5.40); Red Cell Dist. Width 22.5 % (11.5-14.5)
[2024-02-07] MEDS: ULTRAM 50 MG PO (05:56)
--- NOTE | 2024-02-07 06:17 | W.PN.HOSP.TC ---
Today's Communication/Plan
-
Wean down O2 need
Assessment / Plan
Assessment / Plan
Physical exam:
General: Acutely ill. Well Developed, Well Nourished and No Apparent Distress
HEENT: Normocephalic, Atraumatic and Moist Mucous Membranes
Respiratory: Decreased breath sounds. Clear to Auscultation; Negative Wheezes, Rales or Rhonchi
Cardiac: Regular Rhythm and S1/S2
GI: Soft, Nontender and Nondistended
Musculoskeletal: No Clubbing, No Cyanosis and No Edema
Neuro: Awake, Alert and Oriented, memory impairment/cognitive deficits.
Psych: Calm
A/P:
Cardiac Arrest-->
Probable VF or VT since shock delivered by AED--unknown cause but multiple etiologies proposed such as Adderal taper/CBD gummies/ZzQuil/anemia/hypokalemia/pna/r/o sarcoid/ r/o cad/ r/o long qt sdme/ or brugada/ etc--Time down is about 3-4 minutes. A
Fib noticed but unclear if really contributing.
Patient doing well post extubation.
Tylenol/Tramadol as needed for MSK pain.
Non obstructive coronaries on [facility] on 02/04
s/p cardiac MRI, and AICD
Cont oxygen supplementation and PT and OT.
Appreciate cardiology and rfid specialist help
# Acute hypoxic respiratory failure
wean down O2
#Significant anxiety/depression/ADHD--> psychiatry consulted. Started on Zoloft and Ativan as needed. Hold off on Adderall. Discussed with psychiatry. Discussed with cardiology about those meds.
Nausea---> good appetite now, no abd pain.
Memory impairment/cognitive deficit --->unclear if related to injury due to cardiac arrest but seems to be less likely due to the short amount of time for ROSC. Appreciated neuro consult. Repeated CT of the head unremarkable. No need for MRI.
Appreciated neurology follow-up.
VDRF--> extubated and doing well on nasal O2, try to wean off.
Aspiration Pneumonia--> Zosyn changed to IV Cefazolin. MSSA in sputum cx, Staph coag neg in blood cx , contaminant, repeated blood cx no growth so far but continue to follow-up. ID on board. Plan to change to oral ABx.
Hypotension--Shock - cardiogenic although with pna, cannot rule out septic shock--Improved.
Menorrhagia/acute on chronic blood loss Anemia from heavy menses--Hgb = 6.3 on initial labs--s/p pRBC transfusion. Hb 7. ,c/w oral iron.
Non-Gapped Metabolic Acidosis/Hypokalemia from shock/arrest- -resolved
DVT prophylaxis: Lovenox
Hyponatremia, resolved
Code Status: Full
�Total time spent to see patient, examine the patient on the floor, review data and lab results, discuss treatment plan with patient, nursing staff around 55 minutes
Anticipated Discharge: Within 24 hours
Subjective/Interval History
-
Date of Service: February 07, 2024
No events over night
taking pain medicine for chest wall pain
Objective Data
-
Labs:
Laboratory Results
02/07/24
05:43
WBC 9.0
Hgb 7.6 L
Hct 25.9 L
Plt Count 347
Sodium Pending
Potassium Pending
Chloride Pending
Carbon Dioxide Pending
BUN Pending
Creatinine Pending
Glucose Pending
Calcium Pending
Vital Signs:
Vital Signs
Temp Pulse Resp BP Pulse Ox
98.3 F 89 16 144/80 96
02/07/24 05:34 02/07/24 06:00 02/07/24 05:34 02/07/24 05:34 02/07/24 05:34
I&O
02/05/24 02/06/24 02/07/24
06:59 06:59 06:59
Intake Total 1200 / 1200 1939 660 / 660
Output Total 1200 / 1200
Balance 0 / 0 1939 660 / 660
[2024-02-07 06:29] LABS: Blood Urea Nitrogen 11 mg/dl (7-17); Calcium 8.5 mg/dl (8.4-10.2); Carbon Dioxide 29 mmol/L (22-30); Chloride 105 mmol/L (98-107); Estimated Creatinine Clearance 108 ml/min; Glucose 95 mg/dl (70-99); Sodium 136 mmol/L (135-145); eGFR > 60.00
--- NOTE | 2024-02-07 07:45 | W.PN.PUL3 ---
Today's Communication / Plan
-
Antibiotics
Replete K >4, Mg >2
Up OOB as tolerated
Encourage incentive spirometer q1hr while awake
Titrate down supplemental oxygen to maintain SpO2 >90-94% and and he medication given recent nosebleeds
Check ambulatory pulse oximetry prior to discharge
PT/OT recommending cardiac rehab, if needed
Pulmonary service will continue to follow along
Assessment
-
38-year-old female with history of endometriosis, fibroids with heavy menses over the past 9 months, ADHD on chronic Adderall therapy ran out few days ago, was found with agonal breathing at around 5:00 per . CPR was started, police arrived,
AED placed, shock advised and delivered with return of spontaneous circulation. Patient intubated with #6 ET tube, possibly traumatic. In ED, atrial fibrillation with rapid ventricular response, DC cardioversion x 2 per ACLS, and sinus rhythm.
Patient with spontaneous movement of upper and lower extremities. Cooling protocol not pursued. Hemoglobin noted to be 6.3, patient given 2 units of blood in the ED. Metabolic acidemia per ABG. Patient was given potassium for potassium level of
3.3. Initial lactate 4.3. We are asked to help from critical care standpoint
Impression:
Status post out of hospital cardiac arrest, intubated 01/31/24 + extubated 02/01/2024
CPR for about 3 to 5 minutes
AED with shock with ROSC, rhythm consistent with VT s/p dual-chamber ICD placement POD #1
Atrial fibrillation with RVR, status post DC cardioversion in ED
Bilateral pulm infiltrates, staphylococcal pneumonia
Possible aspiration event
Mild QT prolongation
Metabolic acidemia, nongap
Anemia, likely secondary to acute blood loss/menorrhagia
Menses
Conditions present prior to admission
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
None in the last 2 years
Endometriosis/fibroids
Heavy bleeding for the past 9 months
History of mitral valve prolapse
Anxiety
Plan/recommendations
Continue O2 protocol and titrate to maintain SpO2 >90-94%
She may end up going home on O2 if we are unable to fully wean her off by tomorrow
She will need an ambulatory pulse oximetry prior to discharge
CXR 02-03 with patchy infiltrates, RUE PICC --> she will need repeat imaging with CXR in about 6 weeks
Continue airway clearance, incentive spirometry
Out of bed to chair, ambulate as able
Chest pain related to CPR
Pain control
EKG with atrial fibrillation with rapid ventricular response. Mildly prolonged QT noted
EKG 02/03 normal
Echocardiogram with normal biventricular function, MVP with mild to moderate MR
Required DC cardioversion x 2 for atrial fibrillation/RVR in the ED
After reviewing rhythm strips from AED, patient had VT, reviewed with cardiology
Patient on Adderall as outpatient, tox screen positive for amphetamines/marijuana. Patient takes CBD gummies
According to , ran out of Adderall 3 to 4 days [employer]
EP consulted, rec [facility], cardiac MRI, dual chamber ICD which was placed on 02/06/2024
LHC 02-04 with no CAD
[facility] following
Cardiac MRI 02-05 showing mildly impaired LV function with normal RV function, mild�moderate MR, no MRI evidence for diffuse infiltrative myocardial disease, and radiographic evidence of recent WA with myocardial thinning, hypokinesis and
inferolateral wall enhancement of the left mid ventricle
Tracheal culture positive for MSSA
MRSA negative
Zosyn transitioned to cefazolin, to transition to keflex in several days as rec by ID
Legionella, streptococcal antigen negative
COVID, flu negative
Anemia noted - Hb currently stable
Transfuse if needed to keep Hb>7g/dL
Given bilateral pulm infiltrates, would avoid transfusion for now. Will follow
Per family, hemoglobin baseline is around 7 for the last 9 months, currently at low 7s
Menses improving
Appreciate neurology evaluation
Likely TME from acute illness, MS back to normal
Mechanical and pharmacological prophylaxis
Follow blood sugars, sliding scale
Goal BG >100 and <180mg/dL
Replete potassium, magnesium as indicated with goal K>4, Mg>2
DVT prophylaxis: Mechanical and pharmacological (LMWH) prophylaxis
GI prophylaxis: N/A
Total time spent today was 35 minutes for this encounter. Time includes reviewing laboratory test/imaging results, reviewing pertinent medical records, obtaining and reviewing medical history, performing an appropriate exam, ordering medications,
tests and procedures. Time also includes documentation of this encounter, coordinating patient care and communicating with other healthcare professionals. Total time does not include separately billed tests performed on this date of service.
Data:
CXR 02-06-2024:
1. No radiographic evidence for pneumothorax following left-sided ICD placement.
2. SEVERE BILATERAL AIRSPACE CONSOLIDATION (either alveolar pulmonary edema or severe pneumonia).
3. Small bilateral pleural effusions.
4. Right upper extremity PICC line in place.
TTE 01-31-2024:
Normal left ventricular systolic function. Left ventricular ejection fraction
is 55%.
Bi-leaflet mitral valve prolapse. Mild mitral regurgitation.
No significant change since the prior study of 2020.
Subjective Data
-
Date of Service:
Date of Service: February 07, 2024
Chief Complaint: Pulmonary Follow Up
Subjective:
Patient seen this afternoon with significant other at bedside. She is currently on 2 L/min nasal cannula but is also complaining of bloody nose for the last 2 days. She thought it was her pneumonia clearing out of her lungs but she only has
coughed up phlegm 1 time in the last day. She is walking around the [place] with no chest pain or shortness of breath. She denies headache, abdominal pain, fevers or chills. She underwent dual-chamber ICD placement yesterday with no
complications.
Review of Systems
General: Other (Negative unless mentioned above)
Objective Data
Data Reviewed
Vital Signs / I&O / Oxygen:
Vital Signs
Temp Pulse Resp BP Pulse Ox
98.3 F 89 16 144/80 96
02/07/24 05:34 02/07/24 06:00 02/07/24 05:34 02/07/24 05:34 02/07/24 05:34
Intake and Output
02/06/24 02/07/24 02/08/24
06:59 06:59 06:59
Intake Total 1939 660 / 660
Balance 1939 660 / 660
SaO2 [ASV] 97
SaO2 [A/C] 93
SaO2 96
Nasal Cannula flow liters per 6
minute
Physical Exam
General: Respiratory Distress (Negative) and Comfortable
HEENT: Normocephalic and Anicteric
Cardiovascular: S1-S2, Peripheral Edema (Negative) and Other (Bandage across patient's left upper anterior chest)
Respiratory: Wheeze (Negative), Rhonchi (Negative), Non-Labored Respirations and Other (Coarse breath sounds bilaterally)
GI: Soft, Non Distended, Non Tender and Normal Bowel Sounds
Neurology: AO x 3 and Tremors (Negative)
Skin: Warm and Dry
Labs/Micro/Reports
Lab Data
02/07/24 05:43
02/07/24 05:43
Microbiology
02/03/24 15:44 Blood/Venous Blood Culture - Preliminary
No Growth in 72 hours- Final report to follow
02/03/24 10:45 Blood/Venous Blood Culture - Preliminary
No Growth in 72 hours- Final report to follow
01/31/24 06:05 Blood/Venous Blood Culture - Final
No Growth - Final Report
01/31/24 06:02 Blood/Venous Blood Culture - Final
Staphylococcus hominis
01/31/24 06:02 Blood/Venous Gram Stain - Final
[2024-02-07] MEDS: MUCINEX 600 MG PO ×2 (08:50→20:24)
[2024-02-07] MEDS: ZOLOFT 50 MG PO (08:50)
[2024-02-07] MEDS: MAGNESIUM OXIDE 500 MG PO ×2 (08:50→20:23)
[2024-02-07] MEDS: FEOSOL 325 MG PO (08:50)
[2024-02-07] MEDS: TOPROL XL 50 MG PO (08:50)
[2024-02-07] MEDS: ARISTOCORT/TRIAMCINOLONE 0.1% CREAM 1 APPLIC TOPICAL ×2 (08:52→20:23)
--- NOTE | 2024-02-07 10:52 | W.PN.CD ---
Today's Communication / Plan
-
- no further cardiac inpatient workup is anticipated. She is stable for discharge on our end.
- MEDS: Toprol xl 50 po qhs
- Follow up: Colleen Angel Feb 12 at 10:40
Impression / Plan
-
Impression/Plan: 38F with MVP with mild/moderate MR, acute on chronic anemia due to menorrhagia (?) and depression/anxiety/ADHD admitted with SCD in the context of dextroamphetamine taper/CBD gummies and diphenhydramine (mildly prolonged QTc), also
found to have MSSA PNA.
#SCD
-Etiology:
-Echocardiogram is benign.
-EKG benign except for slightly prolonged QTc (466 ms).
-Cardiac MRI report pending
-LHC - normal cors and no CAD.
-genetic testing - as outpatient
-Procainamide challenge test in 2-3 months
- Treatment:
- Secondary prevention ICD in place
- BB added
#Anemia
-Stable/baseline.
-Due to menorrhagia/uterine fibroids.
-The patient states she is being worked up for uterine ablation/hysterectomy.
#PNA
#MVP with mild to moderate MR -Chronic, stable.
# Dispo
- no further cardiac inpatient workup is anticipated. She is stable for discharge on our end.
- MEDS: Toprol xl 50 po qhs
- Follow up: Colleen Angel Feb 12 at 10:40
Subjective/Interval History:
ICD site C/D/I
Pain controlled
No syncope or near syncope
Tele OK
DATA:
CTPE, 01/31/2024:
IMPRESSION:
Extensive bilateral pneumonia with confluent alveolar airspace disease throughout the posterior aspect of the upper and lower lobes bilaterally and interstitial and groundglass airspace disease throughout the right upper lobe and posterior and
apical segments of the left upper lobe.
TTE, 01/31/2024:
CONCLUSIONS
Normal left ventricular systolic function. Left ventricular ejection fraction
is 55%.
Bi-leaflet mitral valve prolapse. Mild mitral regurgitation.
No significant change since the prior study of 2020.
Physical Exam
Vital Signs/Labs
Vital Signs
Temp Pulse Resp BP Pulse Ox
36.5 C 89 18 144/80 96
02/07/24 07:46 02/07/24 06:00 02/07/24 07:46 02/07/24 05:34 02/07/24 07:46
02/06/24 02/07/24 02/08/24
06:59 06:59 06:59
Actual Weight 147 lb 4.301 oz
02/07/24 05:43
02/07/24 05:43
Magnesium 1.7 mg/dl (1.6-2.3) 02/05/24 04:14
Triglycerides 135 mg/dl (10-149) 02/03/24 03:57
TSH 6.72 uIU/ml (0.47-4.68) H 01/31/24 09:15
01/31/24
06:02
[id number] Pept 176
LAB Results
02/05/24
04:14
Troponin I < 0.012
Physical Exam
Constitutional: No acute distress
EENT: Anicteric and Moist mucous membranes
Cardiovascular: Rhythm & rate is regular, Systolic murmur absent and Diastolic murmur absent
Respiratory: Respiratory effort normal, Lungs clear to auscul., Crackles Absent and Rhonchi Absent
GI: Soft, Distention absent and Normal bowel sounds
Neuro/Psych: Alert
Data Reviewed
-
Date of Service: February 07, 2024
--- NOTE | 2024-02-07 11:24 | CM ---
Reviewed chart. Mrs. Gomes was transferred to IVU. Met with Mrs. Gomes to review discharge plans. She states prior to admission she resides with her spouse and two children in a two story home with two steps to enter. She states she has
a full flight of steps to get to bedroom/full bathroom. She states she has a powder room on the first floor. She states prior to admission she was independent with ambulation and adls. She states she does not have any DME in the home. She states
she has a prescription plan and uses [facility]. Medical work-up in progress. The discharge plan is to return home with her family when medically stable.
[2024-02-07] MEDS: FLUSH (NSS) 1 FLUSH IV ×2 (12:23→12:34)
[2024-02-07] MEDS: TORADOL 15 MG IV ×2 (12:33→20:26)
--- NOTE | 2024-02-07 12:41 | W.PN.UPDATE ---
Update Note
Progress Note Update
patient seen chart reviewed. case discussed with nursing. 38 year old mother of two who recently suffered an GA. there seem to be a number of contributing factors and she has been under the care over the years of several medical specialists.
ventricular defibrillator recently implanted as the GA thought to be related to electrical cardiac phenomena. patient very forthcoming re where she is at emotionally and physically. she has hx of adhd and anxiety over the years. as a child she was
not recognized to have adhd but she feels looking back inattention wrought havoc in her life in so many ways. it was not until college that adhd dx and she felt the use of stimulants really changed her life and enable her to complete college and
engage in work. she also has suffered with anxiety over the years which manifest itself in different ways including urinary sx. 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 she has 'nine fibroids' and severe endometriosis. she has suffered
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 she has been anemic to the tune of a hgb less than four. ablation was recommended but not done for a number
of reasons including the aforementioned adhesions as well as insurance snafus. she reports she feels some relief of anxiety even though it is early days with zOloft. no ill effects noted. psych will continue to follow. no changes made in
psychotropic medications
--- NOTE | 2024-02-07 16:25 | PTCARENOTE ---
Pt received this am on 6L midflow. Decreased 02 to 2L by 1500. Sats in the mid 90's. Pt OOB to the chair and ambulating in the room, gait steady. Left chest incisional pain relieved with Toradol.
[2024-02-07] MEDS: LOVENOX 40 MG SC (18:52)
[2024-02-07] MEDS: FLUSH (NSS) 2 FLUSH IV ×2 (20:23→20:27)
[2024-02-07] MEDS: ATIVAN 0.5 MG PO (21:45)
--- NOTE | 2024-02-08 03:22 | PTCARENOTE ---
Assumed care of patient at 23:00. Patient laying in bed w/ spouse at bedside. AAOx3, tele monitor shows SR, and sating 97% 2L. VSS. Left anterior chest dressing intact, patient aware of activity restrictions and verbalized understanding. Call flynn
in reach.
[2024-02-08] MEDS: ANCEF 10 IV (05:20)
--- NOTE | 2024-02-08 06:02 | W.PN.HOSP.TC ---
Addendum entered and electronically signed by Valery Cabrera MD 02/08/24 10:38:
Patient is in need of oxygen at 2 liters/minute via nasal cannula continuously due to pulse oximetry of 87% on room air on ambulation. Oxygen will help to improve hypoxemia. Patient is mobile within the home. DuoNeb therapy has been tried and is
ineffective in treating hypoxemia related symptoms. Oxygen is needed to improve symptoms.
Original Note:
Today's Communication/Plan
-
dc
Assessment / Plan
Assessment / Plan
Physical exam:
General: Acutely ill. Well Developed, Well Nourished and No Apparent Distress
HEENT: Normocephalic, Atraumatic and Moist Mucous Membranes
Respiratory: Decreased breath sounds. Clear to Auscultation; Negative Wheezes, Rales or Rhonchi
Cardiac: Regular Rhythm and S1/S2
GI: Soft, Nontender and Nondistended
Musculoskeletal: No Clubbing, No Cyanosis and No Edema
Neuro: Awake, Alert and Oriented, memory impairment/cognitive deficits.
Psych: Calm
A/P:
Cardiac Arrest-->
Probable VF or VT since shock delivered by AED--unknown cause but multiple etiologies proposed such as Adderal taper/CBD gummies/ZzQuil/anemia/hypokalemia/pna/r/o sarcoid/ r/o cad/ r/o long qt sdme/ or brugada/ etc--Time down is about 3-4 minutes. A
Fib noticed but unclear if really contributing.
Patient doing well post extubation.
Tylenol/Tramadol as needed for MSK pain.
Non obstructive coronaries on C on 02/04
s/p cardiac MRI, and AICD
Cont oxygen supplementation and PT and OT.
Appreciate cardiology and awake overnight monitor help
# Acute hypoxic respiratory failure, resolving.
wean down O2
#Significant anxiety/depression/ADHD--> psychiatry consulted. Started on Zoloft and Ativan as needed. Hold off on Adderall. Discussed with psychiatry. Discussed with cardiology about those meds.
Nausea---> good appetite now, no abd pain.
Memory impairment/cognitive deficit --->unclear if related to injury due to cardiac arrest but seems to be less likely due to the short amount of time for ROSC. Appreciated neuro consult. Repeated CT of the head unremarkable. No need for MRI.
Appreciated neurology follow-up.
VDRF--> extubated and doing well on nasal O2, try to wean off.
Aspiration Pneumonia--> Zosyn changed to IV Cefazolin. MSSA in sputum cx, Staph coag neg in blood cx , contaminant, repeated blood cx no growth so far but continue to follow-up. ID on board. Plan to change to oral ABx.
Hypotension--Shock - cardiogenic although with pna, cannot rule out septic shock--Improved.
Menorrhagia/acute on chronic blood loss Anemia from heavy menses--Hgb = 6.3 on initial labs--s/p pRBC transfusion. Hb 7. ,c/w oral iron.
Non-Gapped Metabolic Acidosis/Hypokalemia from shock/arrest- -resolved
DVT prophylaxis: Lovenox
Hyponatremia, resolved
Code Status: Full
�Total discharge time spent to see patient, examine the patient on the floor, review data and lab results, discuss discharge plan with patient, nursing staff around 65 minutes
Anticipated Discharge: Today
Subjective/Interval History
-
Date of Service: February 08, 2024
No chest pain
No sob
Would like to go home
Objective Data
-
Vital Signs:
Vital Signs
Temp Pulse Resp BP Pulse Ox
98.5 F 78 18 112/70 97
02/07/24 23:10 02/08/24 00:00 02/07/24 23:10 02/07/24 23:01 02/08/24 00:00
I&O
02/06/24 02/07/24 02/08/24
06:59 06:59 06:59
Intake Total 1939 660 / 660 240 / 240
Balance 1939 660 / 660 240 / 240
[2024-02-08 07:39] VITALS: BP 112/76
[2024-02-08] MEDS: MAGNESIUM OXIDE 500 MG PO (07:42)
[2024-02-08] MEDS: MUCINEX 600 MG PO (07:42)
[2024-02-08] MEDS: TOPROL XL 50 MG PO (07:42)
[2024-02-08] MEDS: FEOSOL 325 MG PO (07:42)
[2024-02-08] MEDS: ZOLOFT 50 MG PO (07:57)
[2024-02-08] MEDS: ARISTOCORT/TRIAMCINOLONE 0.1% CREAM 1 APPLIC TOPICAL (08:03)
[2024-02-08 09:51] VITALS: O2SAT 87; O2SAT 93
[2024-02-08] MEDS: TYLENOL 1000 MG PO (10:44)
[2024-02-08] MEDS: TESSALON PERLES 200 MG PO (10:49)
--- NOTE | 2024-02-08 11:32 | CM ---
Addendum entered by Francesca Prasad 02/08/24 14:33:
Portable 02 delivered to the patients room.
Original Note:
Reviewed chart. Received message from RN that Mrs. Gomes will need home 02. Telephone call to [employer] to make the referral. Sent clinical information. Await insurance approval and deliver of portable home 02 to hospital. Concentrator to be
delivered at home. Prior to admission she resides with her spouse and two children in a two story home with tow steps to enter. She has a full flight of steps to get to bedroom/full bathroom. She has a powder room on the first floor. Prior to
admission she was independent with ambulation and adls. She does not have any DME in the home. She has a prescription plan and uses [facility]. Medical work-up in progress. The discharge plan is to return home with her family and home 02 [facility] when medically stable.
--- NOTE | 2024-02-08 11:58 | W.PN.PUL3 ---
Today's Communication / Plan
-
Antibiotics
Replete K >4, Mg >2
Up OOB as tolerated
Encourage incentive spirometer q1hr while awake and she should go home with this as well
Increase activity slowly and advance as tolerated while home over next few weeks
Titrate down supplemental oxygen to maintain SpO2 >90-94% and and use humidification given recent nosebleeds
Walking pulse ox shows she needs 2L/min with activity - she will go home with this
PT/OT recommending cardiac rehab, if needed
Patient being prepared for discharge home. Pulmonary service will now sign off. Please reconsult if there are any additional questions/concerns, or if patient's respiratory status deteriorates. I will arrange for outpatient follow up with me in
office.
Assessment
-
38-year-old female with history of endometriosis, fibroids with heavy menses over the past 9 months, ADHD on chronic Adderall therapy ran out few days ago, was found with agonal breathing at around 5:00 per . CPR was started, police arrived,
AED placed, shock advised and delivered with return of spontaneous circulation. Patient intubated with #6 ET tube, possibly traumatic. In ED, atrial fibrillation with rapid ventricular response, DC cardioversion x 2 per ACLS, and sinus rhythm.
Patient with spontaneous movement of upper and lower extremities. Cooling protocol not pursued. Hemoglobin noted to be 6.3, patient given 2 units of blood in the ED. Metabolic acidemia per ABG. Patient was given potassium for potassium level of
3.3. Initial lactate 4.3. We are asked to help from critical care standpoint
Impression:
Status post out of hospital cardiac arrest, intubated 01/31/24 + extubated 02/01/2024
CPR for about 3 to 5 minutes
AED with shock with ROSC, rhythm consistent with VT s/p dual-chamber ICD placement POD #2
Atrial fibrillation with RVR, status post DC cardioversion in ED
Bilateral pulm infiltrates, staphylococcal pneumonia
Possible aspiration event
Mild QT prolongation
Metabolic acidemia, nongap
Anemia, likely secondary to acute blood loss/menorrhagia
Menses
Conditions present prior to admission
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
None in the last 2 years
Endometriosis/fibroids
Heavy bleeding for the past 9 months
History of mitral valve prolapse
Anxiety
Plan/recommendations
Continue O2 protocol and titrate to maintain SpO2 >90-94%
Walking pulse oximetry performed today and she requires 2 L/min with activity
CXR 02-03 with patchy infiltrates, RUE PICC --> she will need repeat imaging with CXR in about 6 weeks
Continue airway clearance, incentive spirometry
Out of bed to chair, ambulate as able
Chest pain related to CPR
Pain control
EKG earlier this admission with atrial fibrillation with rapid ventricular response. Mildly prolonged QT noted
EKG 02/03 normal
Echocardiogram with normal biventricular function, MVP with mild to moderate MR
Required DC cardioversion x 2 for atrial fibrillation/RVR in the ED
Per Dr. Mcgrath: After reviewing rhythm strips from AED, patient had VT, reviewed with cardiology
Patient on Adderall as outpatient, tox screen positive for amphetamines/marijuana. Patient takes CBD gummies
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
EP consulted, rec [facility], cardiac MRI, dual chamber ICD which was placed on 02/06/2024
C 02-04 with no CAD
[facility] following
Cardiac MRI 02-05 showing mildly impaired LV function with normal RV function, mild�moderate MR, no MRI evidence for diffuse infiltrative myocardial disease, and radiographic evidence of recent MS with myocardial thinning, hypokinesis and
inferolateral wall enhancement of the left mid ventricle
Tracheal culture positive for MSSA
MRSA negative
Zosyn transitioned to cefazolin, to transition to keflex in several days as rec by ID
Legionella, streptococcal antigen negative
COVID, flu negative
Anemia noted - Hb currently stable
Transfuse if needed to keep Hb>7g/dL
Given bilateral pulm infiltrates, would avoid transfusion for now. Will follow
Per family, hemoglobin baseline is around 7 for the last 9 months, currently at low 7s
Menses improved
Appreciate neurology evaluation
Likely TME from acute illness, MS back to normal
Mechanical and pharmacological prophylaxis
Trend blood sugars, sliding scale
Goal BG >100 and <180mg/dL
Replete potassium, magnesium as indicated with goal K>4, Mg>2
DVT prophylaxis: Mechanical and pharmacological (LMWH) prophylaxis
GI prophylaxis: N/A
Patient being prepared for discharge home. Pulmonary service will now sign off. Thank you for allowing us to be involved in the care of this patient. Please reconsult if there are any additional questions/concerns, or if patient's respiratory
status deteriorates.
Total time spent today was 35 minutes for this encounter. Time includes reviewing laboratory test/imaging results, reviewing pertinent medical records, obtaining and reviewing medical history, performing an appropriate exam, ordering medications,
tests and procedures. Time also includes documentation of this encounter, coordinating patient care and communicating with other healthcare professionals. Total time does not include separately billed tests performed on this date of service.
Data:
CXR 02-06-2024:
1. No radiographic evidence for pneumothorax following left-sided ICD placement.
2. SEVERE BILATERAL AIRSPACE CONSOLIDATION (either alveolar pulmonary edema or severe pneumonia).
3. Small bilateral pleural effusions.
4. Right upper extremity PICC line in place.
TTE 01-31-2024:
Normal left ventricular systolic function. Left ventricular ejection fraction
is 55%.
Bi-leaflet mitral valve prolapse. Mild mitral regurgitation.
No significant change since the prior study of 2020.
Subjective Data
-
Date of Service:
Date of Service: February 08, 2024
Chief Complaint: Pulmonary Follow Up
Subjective:
Patient seen and evaluated today at bedside. When I saw her she was on room air, she feels well but still short of breath with exertion still. She feels relatively well at rest. No acute events reported from overnight. Currently denies chest
pain, headache, abdominal pain, fevers or chills.
Review of Systems
General: Other (Negative unless mentioned above)
Objective Data
Data Reviewed
Vital Signs / I&O / Oxygen:
Vital Signs
Temp Pulse Resp BP Pulse Ox
98.1 F 85 16 121/86 92
02/08/24 12:30 02/08/24 07:39 02/08/24 07:40 02/08/24 12:30 02/08/24 08:00
Intake and Output
02/07/24 02/08/24 02/09/24
06:59 06:59 06:59
Intake Total 660 / 660 240 / 240
Balance 660 / 660 240 / 240
SaO2 [ASV] 97
SaO2 [A/C] 93
SaO2 92
Nasal Cannula flow liters per 94
minute
Physical Exam
General: Respiratory Distress (Negative) and Comfortable
HEENT: Normocephalic and Anicteric
Cardiovascular: S1-S2 and Peripheral Edema (Negative)
Respiratory: Wheeze (Negative), Crackles, Rhonchi (Negative), Non-Labored Respirations and Other (Coarse breath sounds bilaterally)
GI: Soft, Non Distended, Non Tender and Normal Bowel Sounds
Neurology: AO x 3 and Tremors (Negative)
Skin: Warm and Dry
Labs/Micro/Reports
Lab Data
02/07/24 05:43
02/07/24 05:43
Microbiology
02/03/24 10:45 Blood/Venous Blood Culture - Final
No Growth - Final Report
02/03/24 15:44 Blood/Venous Blood Culture - Preliminary
No Growth in 4 days- Final report to follow
[2024-02-08 12:30] VITALS: BP 121/86
--- NOTE | 2024-02-08 13:43 | W.DCSUMMARY ---
Discharge Summary
Discharge Data
Date of Admission: 01/31/24
Date of Discharge: 02/08/24
-
Pending Results: No
Hospital Course
38 years old female presented to the emergency room by ambulance with history of sudden cardiac arrest/out of hospital cardiac arrest. Patient received cardiopulmonary resuscitation outside the hospital. Per , patient was having trouble
sleeping but otherwise was out her baseline with no acute illness. In the emergency room, her hemoglobin was 6.3, normal leukocyte count at 8.2, sodium 135, potassium 3.3, creatinine 0.7, lactic acid 4.3. Patient was intubated in the field. She
had defibrillator shock outside the hospital with report of atrial fibrillation with rapid ventricular response. Chest radiography showed bilateral patchy airspace disease concerning for pneumonia. Patient was admitted to the intensive care unit
she was evaluated by human service specialist. Medications were adjusted including intravenous sedatives. Echocardiogram showed normal left ventricular ejection fraction at 55%, bileaflet mitral valve prolapse and mild mitral regurgitation without significant
changes since 2020 echocardiogram. Patient had history of menorrhagia with resulting anemia. Patient received blood transfusion. Patient received intravenous antibiotics for aspiration pneumonia and was followed by pulmonary doctor and infectious
diseases consulted. Blood culture did not show any growth.. She started to gain her consciousness. She was following commands. She was evaluated by neurologist with no evidence of anoxic brain injury. Subsequently, patient was extubated and was
maintained on nasal oxygen. She had acute hypoxic respiratory failure secondary to cardiac arrest and aspiration pneumonia. Patient had history of anxiety. She was followed by psychiatrist. He was using CBD gummies and ZzzQuil for insomnia.
Patient was started on Zoloft for treatment. She tolerated treatment well. Patient underwent cardiac workup including left heart catheterization that revealed no obstructive coronary artery disease. Likely diagnosis was cardiac arrest with
ventricular tachycardia with borderline QT prolongation. Cardiac MRI was done and reviewed by gyroscope technician. Patient underwent preventative ICD placement as secondary prevention. Patient was able to ambulate. He did not have neurological
deficits. Her mood and mentation improved. she underwent home oxygen evaluation and she was qualified for 2 L of oxygen upon ambulation. Patient was advised to follow-up with pulmonary doctor for further recommendation. Cardiology recommended to
continue Toprol XL 50 mg daily. She had outpatient cardiology appointment placed for February 13, 2024. Patient remained hemodynamically stable and was discharged in a stable condition.
Discharge Plan
-
Patient Disposition: Home (Routine Discharge)
Discharge Diagnosis/Procedures: - Out of the hospital cardiac arrest status post echocardiogram, cardiac magna resonant imaging study, scan of the chest, cardiac catheterization, ICD implant. You were evaluated by gyroscope technician.
-Anxiety disorder, you are seen by psychiatrist and neurologist. You are started on new medicine called Zoloft.
- Aspiration pneumonia/pneumonitis, you were seen by infectious diseases doctor and you are given antibiotic.
-Acute hypoxic respiratory failure, resolved. You are followed by pulmonary/ human service specialist doctor.
-Blood loss anemia, acute on chronic, you were given blood transfusion and started on oral iron therapy.
Diet: As tolerated
Driving Restrictions: No driving
Activity Restrictions/Additional Instructions:
Triamcinolone cream to rash areas chest/abdomen twice a day x 2 weeks.
May apply Vaseline twice a day to open scabbed/open areas.
Follow up with boat loader if needed.
Stand Alone Forms: DC Inst - Implanted Device
Referrals:
[facility], DME [Other] (Please call when home to schedule a deliver of the oxygen concentrator. Thanks )
Roberta Connor MD [Community] - in one to two weeks
Colleen Angel CRNP [Specified Professional Personl] - 02/13/24 10:40 am (Post device incision check appointment and hospital followup)
Jose Haywood MD [Active] - in four to six weeks (with CXR prior to appt. and PFTs)
Prescriptions:
New
metoprolol succinate 50 mg Tablet Extended Release 24 Hr
50 mg PO DAILY Qty: 30 0RF
tramadol 50 mg Tablet
50 mg PO BIDPRN PRN (Reason: severe pain) Qty: 10 0RF
acetaminophen [Tylenol Extra Strength] 500 mg Tablet
1,000 mg PO Q6HPRN PRN (Reason: MILD PAIN) Qty: 10 0RF
ferrous sulfate [FeroSul] 325 mg (65 mg iron) Tablet
325 mg PO DAILY Qty: 30 0RF
sertraline 50 mg Tablet
50 mg PO DAILY Qty: 30 0RF
cephalexin 500 mg capsule
500 mg PO QID Qty: 20 0RF
Discontinued
dextroamphetamine-amphetamine [Adderall] 20 MG tablet
20 mg PO BID@0700,1200
Discharge Orders:
Discharge Patient (As Directed); Ordered 02/08/24
Ordered By: Valery Cabrera
Care Plan Goals
Care Plan Goals:
Problem: Readiness for enhanced knowledge related to diagnosis and treatment plan
Goal: Understand your diagnosis and treatment plan needs, including medications if applicable.
Instructions: Know your diagnosis, underlying causes and treatment plan options, including medications if applicable. Consult with your health care team to learn about your diagnosis and treatment plan, including medications if applicable.
Discharge Date and Time
Print Language: GREENLANDIC
--- NOTE | 2024-02-08 16:10 | PTCARENOTE ---
02 removed this am. Sats on room air 92 - 95%. Pt ambulated in the hallway with nurse, sat 92% at rest prior to ambulating. Sat dropped to 87% during ambulation. Pt denied sob while walking. Pt qualifies for home 02. Pt with no c/o today other than
left chest incisional pain. Pt discharged to home with her . Discharge instructions given and reviewed with good understanding.
== END 2024-02-08 16:00 | disposition home or self-care (01) | DRG 275 ==
LOC: IVU 07:29
PROVIDERS: Hospitalist; Internal Medicine; Internal Medicine Cardiovascular Disease; Nurse Practitioner; ADMITTING PHYSICIAN Hospitalist; ATTENDING PHYSICIAN Internal Medicine; CONSULT PHYSICIAN Internal Medicine Cardiovascular Disease; CONSULT PHYSICIAN Internal Medicine Critical Care Medicine; CONSULT PHYSICIAN Internal Medicine Infectious Disease; CONSULT PHYSICIAN Student in an Organized Health Care Education/Training Program; EMERGENCY PHYSICIAN Student in an Organized Health Care Education/Training Program; OTHER PHYSICIAN Internal Medicine Cardiovascular Disease; OTHER PHYSICIAN Psychiatry & Neurology Psychiatry
PROC: 5A1935Z Respiratory Ventilation, Less than 24 Consecutive Hours (ICD-10-PCS; 2024-01-31)
PROC: 0BH17EZ Insertion of Endotracheal Airway into Trachea, Via Natural or Artificial Opening (ICD-10-PCS; 2024-01-31)
PROC: 02HV33Z Insertion of Infusion Device into Superior Vena Cava, Percutaneous Approach (ICD-10-PCS; 2024-01-31)
PROC: 30233N1 Transfusion of Nonautologous Red Blood Cells into Peripheral Vein, Percutaneous Approach (ICD-10-PCS; 2024-01-31)
PROC: 03HY32Z Insertion of Monitoring Device into Upper Artery, Percutaneous Approach (ICD-10-PCS; 2024-02-01)
PROC: 4A023N7 Measurement of Cardiac Sampling and Pressure, Left Heart, Percutaneous Approach (ICD-10-PCS; 2024-02-05)
PROC: B2111ZZ Fluoroscopy of Multiple Coronary Arteries using Low Osmolar Contrast (ICD-10-PCS; 2024-02-05)
PROC: 02H63KZ Insertion of Defibrillator Lead into Right Atrium, Percutaneous Approach (ICD-10-PCS; 2024-02-06)
PROC: 02HK3KZ Insertion of Defibrillator Lead into Right Ventricle, Percutaneous Approach (ICD-10-PCS; 2024-02-06)
PROC: 0JH608Z Insertion of Defibrillator Generator into Chest Subcutaneous Tissue and Fascia, Open Approach (ICD-10-PCS; 2024-02-06)
DX: I47.20 Ventricular tachycardia, unspecified (principal); A41.9 Sepsis, unspecified organism; G92.8 Other toxic encephalopathy; J69.0 Pneumonitis due to inhalation of food and vomit; R57.0 Cardiogenic shock; J96.01 Acute respiratory failure with hypoxia; R65.21 Severe sepsis with septic shock; E87.20 Acidosis, unspecified; D62 Acute posthemorrhagic anemia; E87.1 Hypo-osmolality and hyponatremia; I48.91 Unspecified atrial fibrillation; I34.1 Nonrheumatic mitral (valve) prolapse; N92.0 Excessive and frequent menstruation with regular cycle; F90.9 Attention-deficit hyperactivity disorder, unspecified type; M50.30 Other cervical disc degeneration, unspecified cervical region; I46.2 Cardiac arrest due to underlying cardiac condition; E87.6 Hypokalemia; D25.9 Leiomyoma of uterus, unspecified; N80.9 Endometriosis, unspecified; I34.0 Nonrheumatic mitral (valve) insufficiency; F41.1 Generalized anxiety disorder; F32.A Depression, unspecified; G47.00 Insomnia, unspecified; F12.90 Cannabis use, unspecified, uncomplicated; Z11.52 Encounter for screening for COVID-19; Z79.899 Other long term (current) drug therapy; Z82.3 Family history of stroke; Z82.49 Family history of ischemic heart disease and other diseases of the circulatory system; Z86.16 Personal history of COVID-19; Z87.442 Personal history of urinary calculi
CPT/HCPCS: 32551; 33249; 36430; 36600; 51702; 70450; 71045; 71275; 75561; 80048; 80053; 80306; 80307; 81003; 82248; 82533; 82805; 82962; 83036; 83540; 83550; 83605; 83735; 83880; 84100; 84443; 84478; 84484; 84703; 85014; 85018; 85025; 85027; 86850; 86900; 86901; 86920; 87040; 87070; 87147; 87150; 87186; 87205; 87449; 87502; 87641; 87811; 87899; 92960; 93005; 93306; 93458; 94002; 94003; 94667; 94668; 94761; 96374; 97116; 97162; 97166; 97530; 97535; 99291; A9585; C1721; C1777; C1892; C1894; C1898; P9016; Q9967

== ENCOUNTER 2024-03-21 06:00 | Day surgery (SDC) | payer OTHER, SELFPAY ==
[2024-03-21] VITALS (28 sets, daily range): BP systolic 83–113; BP diastolic 46–90; BMI 22.8
[2024-03-21 06:43] LABS: HCG, Urine Qualitative Screen Negative
--- NOTE | 2024-03-21 09:57 | ITS.CL.PN ---
Addendum entered and electronically signed by Carmen Craig MD 03/21/24 10:57:
Patient ICD was interrogated prior to the pocket revision.
ICD was working normally with adequate sensing, threshold, and impedances. Patient's ICD therapies were suspended at the start of the case. The ICD was interrogated again and tachy therapies were turned back on at the end of the case.
Original Note:
Documentation Engineer - Procedure Note
Procedure
Procedure Note:
Pocket Revision:
Ms. Gomes is a 38-year-old with out of hospital cardiac arrest s/p CPR and ICD placement subpectoral on 02/06/24 that had moved out of the pocket and is here for pocket revision.
Indications: Device moved out of the pocket with pain and nerve pressure.
Date of the Procedure: 03/21/24
Pre-Operative Diagnosis: cardiac arrest
Post-Operative Diagnosis: cardiac arrest
Procedure Performed: Pocket revision and placing ICD to a new pocket.
Performing Physician:
Carmen Craig MD
Anesthesia:
See anesthesia records
Pre-operative antibiotics:
Ancef
Detailed Description of the Procedure:
The patient was identified using hospital identification and informed consent obtained for the procedure. The risks were explained including, but not limited to: Bleeding, infection, arrhythmia, stroke, vascular/cardiac/lung puncture, surgery,
pacemaker dependency/device malfunction. All questions were answered.
The patient was brought to the electrophysiology laboratory in stable condition in fasting state. Continuous electrocardiographic and hemodynamic monitoring was initiated. The initial rhythm was sinus.
The procedure site was meticulously prepared with surgical scrub and allowed to dry with no pooling. Sterile draping was applied to cover the procedure site. The image intensifier was draped with sterile bag and positioned over the patient.
The left infraclavicular region was prepped and draped in the usual sterile fashion. Local anesthesia was administered subcutaneously using 1% lidocaine/Bupivacaine.
The pocket was accessed going through the previous incision. Using blunt dissection and cauterization, the device was accessed. It was moved out of the pocket and displaced laterally into the axilla. The adhesions were removed and the device was
accessed and removed from the pocket.
The bleeders were identified and cauterized. The pocket was extended medially and the lateral was cauterized. The newly formed cavity was cleaned and no bleeding noted.
The leads were anchored to the tissue again and the device was placed in the pocket. The device was anchored to the tissue using Ethibond suture. The lateral pocket was sutured using Vicryl absorbable suture.
The pocket was irrigated using antibiotics soaked saline solution.
A Tyrx pouch was installed around the device and the leads. A surgiflo was deposited in the pocket. The deep fascia was closed using 2-0 V-Loc sutures. The superficial wound was closed using 4-0 Monocryle running suture with excellent approximation
of the skin.
Steri-Strips and a bandage were applied externally.�
Procedure End:
The procedure was tolerated well. A bandage was applied to the incision area. Pressure dressing was placed.
Estimated Blood loss:
10 cc
Specimens Removed:
No cultures and no specimens were obtained.
Urine output:
None
Packs / Drains/ Tubes:
None
Instrument / Sponge Count Correct:
Yes
Complications of the Procedure:
None
Condition of Patient at Time of Transfer:
Hemodynamically stable with no neurological or vascular compromise.
Summary:
Successful pocket revision and move to ICD to a new pocket.
Results/Recommendations:
1. Please provide patient with adequate pain control�
2. Clindamycin 500 mg BID for 3 days
Carmen Craig MD
Electrophysiology
--- NOTE | 2024-03-21 10:55 | PTCARENOTE ---
Received pt from EPS procedure. Pt arrived awake, alert, and oriented x 3. Pt c/o left arm, left shoulder, and left chest discomfort rated 9/10. Pt states when she moves her left fingers pain shoots up her arm. Indu Obregon CONCRETE PIPE MAKING MACHINE OPERATOR made aware and states she
will order her pain med. Will administer pain med and continue to monitor.
[2024-03-21] MEDS: MORPHINE SULFATE 2 MG IV (11:14)
[2024-03-21] MEDS: PERCOCET 5/325 2 TABLET PO (11:49)
--- NOTE | 2024-03-21 12:00 | PTCARENOTE ---
T wave inversions noted on clinical research monitor. Indu Obregon NP made aware. No treatment ordered at this time. Will continue to monitor.
--- NOTE | 2024-03-21 12:09 | PTCARENOTE ---
Dr Craig at pt bedside assessing and speaking to pt and pt's . EKG done and given to Dr Craig. No further orders at this time.
--- NOTE | 2024-03-21 14:25 | PTCARENOTE ---
Indu Obregon CAMPGROUND CARETAKER at pt bedside speaking to pt and pt's . Indu Obregon CAMPGROUND CARETAKER states to remove pressure dressing. Pressure dressing removed. Pt states her pain was a 4/10 before ambulating to bathroom and now currently 5/10. Pt states she feels ok for
discharge and would like to go home. Pt's at pt bedside. Indu Obregon CAMPGROUND CARETAKER preparing pt for discharge.
== END 2024-03-21 15:15 | disposition home or self-care (01) ==
LOC: CATH 06:00
PROVIDERS: ATTENDING PHYSICIAN Internal Medicine Cardiovascular Disease; FAMILY PHYSICIAN Internal Medicine
DX: Z45.02 Encounter for adjustment and management of automatic implantable cardiac defibrillator (principal); Z86.74 Personal history of sudden cardiac arrest; I47.20 Ventricular tachycardia, unspecified; I34.0 Nonrheumatic mitral (valve) insufficiency; D64.9 Anemia, unspecified; I47.21 Torsades de pointes; I34.1 Nonrheumatic mitral (valve) prolapse; F90.9 Attention-deficit hyperactivity disorder, unspecified type; F41.9 Anxiety disorder, unspecified
CPT/HCPCS: 33223; 93799; 71045; 81025; 93005

== ENCOUNTER 2024-07-26 06:32 | Day surgery (SDC) | payer OTHER, SELFPAY ==
[2024-07-18 09:03] VITALS: BMI 23.8
[2024-07-18 10:30] LABS: Hematocrit 27.6 % (37.0-47.0); Hemoglobin 7.9 g/dL (12.0-16.0); Mean Corp Hgb Conc. 28.6 g/dL (33.0-37.0); Mean Corpuscular Hgb 20.1 pg (27.0-31.0); Mean Corpuscular Volume 70.1 fL (81.0-99.0); Mean Platelet Volume 10.1 fL (7.4-10.4); Platelet Count 294 10^3/uL (130-400); Red Blood Cell Count 3.94 10^6/uL (4.20-5.40); Red Cell Dist. Width 17.9 % (11.5-14.5); White Blood Cell Count 4.3 10^3/uL (4.8-10.8)
[2024-07-18 11:42] LABS: ALT (SGPT) 14 U/L (0-35); AST (SGOT) 18 U/L (14-36); Albumin 4.3 g/dl (3.5-5.0); Alkaline Phosphatase 44 U/L (38-126); Blood Urea Nitrogen 20 mg/dl (7-17); Carbon Dioxide 21 mmol/L (22-30); Chloride 106 mmol/L (98-107); Estimated Creatinine Clearance 108 ml/min; Glucose 87 mg/dl (70-99); Potassium 4.6 mmol/L (3.5-5.1); Sodium 140 mmol/L (135-145); Total Bilirubin 0.4 mg/dl (0.2-1.3); Total Protein 6.7 g/dl (6.3-8.2); eGFR > 60.00
--- NOTE | 2024-07-19 10:40 | PTCARENOTE ---
Hgb 7.9 collected on 07/18/24; Lisa at 's office was notified.
[2024-07-24 12:50] VITALS: BMI 23.8
[2024-07-26] VITALS (7 sets, daily range): BP systolic 94–102; BP diastolic 60–67; BMI 23.8
[2024-07-26] MEDS: DILAUDID 0.25 MG IV (11:27)
== END 2024-07-26 12:45 | disposition home or self-care (01) ==
LOC: SDS 06:32
PROVIDERS: ATTENDING PHYSICIAN Otolaryngology Facial Plastic Surgery; FAMILY PHYSICIAN Physician Assistant; OTHER PHYSICIAN Internal Medicine Cardiovascular Disease
DX: L98.0 Pyogenic granuloma (principal); K13.4 Granuloma and granuloma-like lesions of oral mucosa; Z86.74 Personal history of sudden cardiac arrest
CPT/HCPCS: 31541; 88305; 36415; 80053; 85027; 86850; 86900; 86901; 88341; 88342

== ENCOUNTER → 2025-01-20 13:29 | Outpatient (REF) | payer OTHER, SELFPAY | LOC: MRI 13:29 | PROVIDERS: ATTENDING PHYSICIAN Obstetrics & Gynecology; FAMILY PHYSICIAN Nurse Practitioner | DX: N80.9 Endometriosis, unspecified (principal); D21.9 Benign neoplasm of connective and other soft tissue, unspecified | CPT/HCPCS: 72197; 76014; 76015; A9575 ==

== ENCOUNTER → 2025-05-05 14:38 | Outpatient (REF) | payer OTHER, SELFPAY | LOC: RAD 14:38 | PROVIDERS: ATTENDING PHYSICIAN Obstetrics & Gynecology; FAMILY PHYSICIAN Nurse Practitioner | DX: N80.9 Endometriosis, unspecified (principal); R10.2 Pelvic and perineal pain | CPT/HCPCS: 74177; Q9967 ==

== ENCOUNTER → 2025-05-21 13:29 | Outpatient (REF) | payer OTHER, SELFPAY | LOC: HWRAD 13:29 | PROVIDERS: ATTENDING PHYSICIAN Obstetrics & Gynecology; FAMILY PHYSICIAN Nurse Practitioner | DX: N80.9 Endometriosis, unspecified (principal); N83.201 Unspecified ovarian cyst, right side | CPT/HCPCS: 76830; 76856 ==

== ENCOUNTER → 2025-07-16 09:54 | Outpatient (REF) | payer OTHER, SELFPAY | LOC: HWRAD 09:54 | PROVIDERS: ATTENDING PHYSICIAN Specialist; FAMILY PHYSICIAN Nurse Practitioner | DX: N20.1 Calculus of ureter (principal) | CPT/HCPCS: 76770 ==